=== PATIENT | female | born 1935 | race Caucasian/White ===

== ENCOUNTER 2018-12-11 14:35 | Emergency (ER) | payer OTHER ==
--- OUTSIDE RECORDS SUMMARY | 2018-12-11 14:36 | XMS REPORT | Clinical Summary ---
:1935 Author Organization [facility] Address [address] [place] [address] Care Team Providers Name Role Phone Izzy Curiel Primary Care Provider Allergies Not on File Medications Not on file Active Problems Not on file Social History Tobacco Use Types Packs/Day Years Used Date Never Assessed Sex Assigned at Date Recorded Not on file Job Start Date Occupation Industry Not on file Not on file Not on file Travel History Travel Start Travel End No recent travel history available. Last Filed Vital Signs Not on file Plan of Treatment Health Maintenance Due Date Last Done Comments SHINGLES VACCINES (1 of 2) 1985 PNEUMOCOCCAL POLYSACCHARIDE VACCINE AGE 65 AND OVER 2000 PNEUMOCOCCAL-13 2000 INFLUENZA VACCINE 06/20/2018 Results Not on fileafter 12/10/2017 Insurance Payer Benefit Plan / Group Subscriber ID Type Phone Address MEDICARE MEDICARE PART A AND B xxxxxxxxxx Medicare [place], [place] COMMERCIAL MISC MISC COMMERCIAL xxxxxx Commercial Advance Directives Patient has advance care planning documents on file. For more information, please contact:[facility] [place] [address]
--- NOTE | 2018-12-11 15:29 | RAD REPORT ---
EXAM DESCRIPTION: CT - Facial Bones W/ Mpr - 12/11/2018 3:16 pm CLINICAL HISTORY: Facial injury status post fall. Facial pain TECHNIQUE: Computed axial tomography of the face was obtained. Coronal and sagittal reconstruction w as performed. All CT scans are performed using dose optimization technique as appropriate and may include automated exposure control or mA/KV adjustment according to patient size. FINDINGS: Left preseptal/cheek swelling is present. A fracture is not seen. A TMJ dislocation is not noted. The globes are intact. Fluid within the sinuses is not seen. IMPRESSION: Negative for a facial fracture.
--- NOTE | 2018-12-11 15:33 | RAD REPORT ---
EXAM DESCRIPTION: CT - Head C Spine Mpr Wo Con - 12/11/2018 3:24 pm CLINICAL HISTORY: Head and neck injury status post fall. Head and neck pain COMPARISON: None. TECHNIQUE: Computed axial tomography of the head and cervical spine was obtained. Sagittal and coronal reconstruction was performed. All CT scans are performed using dose optimization technique as appropriate and may include automated exposure control or mA/KV adjustment according to patient size. FINDINGS: An intracranial bleed is not seen. The ventricles are normal in caliber. An extra-axial fl uid collection is not noted.Fluid within the visualized sinuses and mastoids is not seen A cervical fracture is not visualized. No dislocation is noted. Mild anterior subluxation of C4 on C5 is present. Most likely this is chronic. Spondylosis involves the spine IMPRESSION: No acute intracranial abnormality is seen. A cervical fracture is not visualized. If the patient continues to have symptoms to suggest intracra nial /spinal cord/ligamentous pathology then MRI would be recommended
--- NOTE | 2018-12-11 15:43 | EDPHYS ---
Physician Documentation [facility] Name: Hermelinda Zelaya Age: 83 yrs Sex: Female : 1935 Arrival Date: 12/11/2018 Time: 14:37 Bed 17 Private MD: ED Physician Damon Riojas HPI: 12/11 16:26 This 83 yrs old Female presents to ER via Ambulatory with complaints of Fall snw Injury. 16:26 Details of fall: The patient fell from an upright position, while walking, tripped in snw driveway and landed on left knee, hand, and struck face on concrete, no LOC. Onset: The symptoms/episode began/occurred suddenly, just prior to arrival. Associated injuries: The patient sustained injury to the head, abrasion, contusion, swelling, tenderness. Severity of symptoms: At their worst the symptoms were mild. The patient has experienced a previous episode. Pt declines pain medications at this time. Historical: - Allergies: 14:59 Epinephrine; tw2 14:59 Codeine; tw2 14:59 darvon; tw2 15:05 Propoxyphene HCl; tw2 - Home Meds: 14:56 Aortic valve replacement [Active]; ph 14:59 Advair Diskus Inhl [Active]; losartan potassium 100 mg once daily PO [Active]; tw2 Singulair 10 mg oral tab 1 tab once daily [Active]; Ventolin HFA 90 mcg/actuation Nebulizer HFAA [Active]; ipratropium bromide 0.02 % inhalation soln [Active]; Albuterol Inhl [Active]; Centrum Silver 0.4-300-250 mg-mcg-mcg oral tab [Active]; aspirin 81 mg Oral chew 1 tab once daily [Active]; 15:01 Zyrtec 10 mg Oral cap [Active]; Zithromax 1 gram Oral pack [Active]; tw2 - PMHx: 14:59 Asthma; tw2 - PSHx: 14:56 Hysterectomy; Cholecystectomy; Tonsillectomy; BACK; ph 14:59 BACK; Tonsillectomy; Hysterectomy; aortic valvle replacement; Cholecystectomy; Hernia tw2 repair; Bladder suspension; - Immunization history:: Adult Immunizations. - Immunization history: Last tetanus immunization: unknown. - Social history:: Smoking status: . - Ebola Screening: : Patient denies travel to an Ebola-affected area in the 21 days before illness onset. ROS: 16:22 Constitutional: Negative for fever, chills, and weight loss, Eyes: Negative for injury, snw pain, redness, and discharge, ENT: Negative for injury, pain, and discharge, Neck: Negative for injury, pain, and swelling, Cardiovascular: Negative for chest pain, palpitations, and edema, Respiratory: Negative for shortness of breath, cough, wheezing, and pleuritic chest pain, Abdomen/GI: Negative for abdominal pain, nausea, vomiting, diarrhea, and constipation, Back: Negative for injury and pain, : Negative for injury, bleeding, discharge, and swelling, MS/Extremity: Negative for injury and deformity. 16:22 Psych: Negative for depression, anxiety, suicide ideation, homicidal ideation, and hallucinations. 16:22 Skin: Positive for abrasion(s), avulsion, swelling, contusion. 16:22 Neuro: Negative for altered mental status, dizziness, gait disturbance, loss of consciousness. Exam: 16:22 Constitutional: This is a well developed, well nourished patient who is awake, alert, snw and in no acute distress. Eyes: Pupils equal round and reactive to light, extra-ocular motions intact. Lids and lashes normal. Conjunctiva and sclera are non-icteric and not injected. Cornea within normal limits. Periorbital areas with no swelling, redness, or edema. ENT: Nares patent. No nasal discharge, no septal abnormalities noted. Tympanic membranes are normal and external auditory canals are clear. Oropharynx with no redness, swelling, or masses, exudates, or evidence of obstruction, uvula midline. Mucous membranes moist. Neck: Trachea midline, no thyromegaly or masses palpated, and no cervical lymphadenopathy. Supple, full range of motion without nuchal rigidity, or vertebral point tenderness. No Meningismus. Chest/axilla: Normal chest wall appearance and motion. Nontender with no deformity. No lesions are appreciated. Cardiovascular: Regular rate and rhythm with a normal S1 and S2. No gallops, murmurs, or rubs. Normal PMI, no JVD. No pulse deficits. Respiratory: Lungs have equal breath sounds bilaterally, clear to auscultation and percussion. No rales, rhonchi or wheezes noted. No increased work of breathing, no retractions or nasal flaring. Abdomen/GI: Soft, non-tender, with normal bowel sounds. No distension or tympany. No guarding or rebound. No evidence of tenderness throughout. Back: No spinal tenderness. No costovertebral tenderness. Full range of motion. MS/ Extremity: Pulses equal, no cyanosis. Neurovascular intact. Full, normal range of motion. Neuro: Awake and alert, GCS 15, oriented to person, place, time, and situation. Cranial nerves II-XII grossly intact. Motor strength 5/5 in all extremities. Sensory grossly intact. Cerebellar exam normal. Normal gait. Psych: Awake, alert, with orientation to person, place and time. Behavior, mood, and affect are within normal limits. 16:22 Skin: Appearance: normal except for affected area, injury, abrasion(s), very small abrasion noted, of the left knee, avulsion(s), a small of the lateral aspect of left fingers, contusion(s), that are deep, of the left eye. Vital Signs: 14:52 BP 130 / 62; Pulse 80; Resp 17; Temp 98.4(O); Pulse Ox 100% ; tw2 14:53 Pulse 87; Resp 18; Pulse Ox 97% on R/A; Weight 62.14 kg; Height 5 ft. 1 in. (154.94 ph cm); Pain 4/10; 15:36 BP 128 / 61; Pulse 88; Resp 17; Pulse Ox 99% on R/A; tw2 14:53 Body Mass Index 25.89 (62.14 kg, 154.94 cm) ph López Coma Score: 14:52 Eye Response: spontaneous(4). Verbal Response: oriented(5). Motor Response: obeys tw2 commands(6). Total: 15. Trauma Score (Adult): 14:52 Eye Response: spontaneous(1); Verbal Response: oriented(1); Motor Response: obeys tw2 commands(2); Systolic BP: > 89 mm Hg(4); Respiratory Rate: 10 to 29 per min(4); Goshen Score: 15; Trauma Score: 12 MDM: 14:47 Patient medically screened. snw 16:25 Data reviewed: vital signs, nurses notes. Data interpreted: Pulse oximetry: on room air snw is 99 %. Interpretation: normal. Counseling: I had a detailed discussion with the patient and/or guardian regarding: the historical points, exam findings, and any diagnostic results supporting the discharge/admit diagnosis, radiology results, the need for outpatient follow up, to return to the emergency department if symptoms worsen or persist or if there are any questions or concerns that arise at home. Special discussion: Based on the patient's history, exam and DX evaluation, there is no indication for emergent intervention or inpatient [place]. It is understood by the patient/guardian that if the SXs persist or worsen they need to return immediately for re-evaluation. Based on the history and exam findings, there is no indication for further emergent testing or inpatient evaluation. I discussed with the patient/guardian the need to see the primary care provider for further evaluation of the symptoms. 12/11 15:08 Order name: CT Facial Bones W/O Con; Complete Time: 15:35 snw 12/11 15:08 Order name: CT Head C Spine; Complete Time: 15:35 snw 12/11 15:58 Order name: Ice pack; Complete Time: 15:58 tw2 Administered Medications: No medications were administered Disposition: 16:51 Co-signature as Attending Physician, Damon Riojas MD. rn Disposition: 12/11/18 15:42 Discharged to Home. Impression: Fall on same level, unspecified, Contusion of unspecified part of head - left cheek, Abrasion of knee, Abrasion of left hand - skin avulsion. - Condition is Stable. - Discharge Instructions: Abrasion, Head Injury, Adult, Fall Prevention in the Home. - Prescriptions for orphenadrine citrate 100 mg Oral Tablet Sustained Release - take 1 tablet by ORAL route 2 times per day As needed; 20 tablet. - Medication Reconciliation Form, Thank You Letter, Antibiotic Education, Prescription Opioid Use form. - Follow up: Private Physician; When: 2 - 3 days; Reason: Recheck today's complaints, Continuance of care, Re-evaluation by your physician. Follow up: Emergency Department; When: As needed; Reason: Worsening of condition. Signatures: Dispatcher [employer] EDMS Vania Vogel, ANASTASIA-C LIBRARY CIRCULATION ASSISTANT-Csnw Damon Riojas MD MD rn Hall, Patricia, RN RN Yasmin Arevalo RN RN tw2 Corrections: (The following items were deleted from the chart) 15:05 14:56 Allergies: Epinephrine; ph tw2 15:05 14:56 Allergies: Codeine; ph tw2 15:05 14:56 PMHx: Asthma; ph tw2 15:59 15:42 12/11/2018 15:42 Discharged to Home. Impression: Fall on same level, unspecified; tw2 Contusion of unspecified part of head - left cheek; Abrasion of knee; Abrasion of left hand - skin avulsion. Condition is Stable. Forms are Medication Reconciliation Form, Thank You Letter, Antibiotic Education, Prescription Opioid Use. Follow up: Private Physician; When: 2 - 3 days; Reason: Recheck today's complaints, Continuance of care, Re-evaluation by your physician. Follow up: Emergency Department; When: As needed; Reason: Worsening of condition. snw 16:27 16:22 Skin: Appearance: normal except for affected area, injury, abrasion(s), very snw small abrasion noted, of the right knee, avulsion(s), a small of the lateral aspect of left fingers, contusion(s), that are deep, of the left eye, snw
--- NOTE | 2018-12-11 15:43 | ER ---
Nurse's Notes [facility] Name: Hermelinda Zelaya Age: 83 yrs Sex: Female : 1935 Arrival Date: 12/11/2018 Time: 14:37 Bed 17 Private MD: Diagnosis: Fall on same level, unspecified;Contusion of unspecified part of head-left cheek;Abrasion of knee;Abrasion of left hand-skin avulsion Presentation: 12/11 14:46 Mechanism of Injury: Fall from standing position. Trauma event details: Injury occurred tw2 in the [facility]. 14:51 Presenting complaint: Patient states: Reports tripping and falling onto concrete when ph leaving apartment, c/o pain to L eye, L hand and L knee, selling and bruising noted to L eye and bandage in place on L palm, pt denies LOC, states, " I'm just feeling strange and not like myself." Reports taking 81 mg ASA, denies other blood thinners. Transition of care: patient was not received from another setting of care. Onset of symptoms was December 11, 2018. Risk Assessment: Do you want to hurt yourself or someone else? Patient reports no desire to harm self or others. Initial Sepsis Screen: Does the patient meet any 2 criteria? No. Patient's initial sepsis screen is negative. Does the patient have a suspected source of infection? No. Patient's initial sepsis screen is negative. Care prior to arrival: None. 14:51 Method Of Arrival: Ambulatory ph 14:51 Acuity: LOI 2 ph Trauma Activation: Alert Physician: ED Physician; Name: ; Notified At: ; Arrived At: Physician: General Surgeon; Name: ; Notified At: ; Arrived At: Physician: Radiology; Name: ; Notified At: ; Arrived At: Physician: Respiratory; Name: ; Notified At: ; Arrived At: Physician: Lab; Name: ; Notified At: ; Arrived At: Historical: - Allergies: 14:59 Epinephrine; tw2 14:59 Codeine; tw2 14:59 darvon; tw2 15:05 Propoxyphene HCl; tw2 - Home Meds: 14:56 Aortic valve replacement [Active]; ph 14:59 Advair Diskus Inhl [Active]; losartan potassium 100 mg once daily PO [Active]; tw2 Singulair 10 mg oral tab 1 tab once daily [Active]; Ventolin HFA 90 mcg/actuation Nebulizer HFAA [Active]; ipratropium bromide 0.02 % inhalation soln [Active]; Albuterol Inhl [Active]; Centrum Silver 0.4-300-250 mg-mcg-mcg oral tab [Active]; aspirin 81 mg Oral chew 1 tab once daily [Active]; 15:01 Zyrtec 10 mg Oral cap [Active]; Zithromax 1 gram Oral pack [Active]; tw2 - PMHx: 14:59 Asthma; tw2 - PSHx: 14:56 Hysterectomy; Cholecystectomy; Tonsillectomy; BACK; ph 14:59 BACK; Tonsillectomy; Hysterectomy; aortic valvle replacement; Cholecystectomy; Hernia tw2 repair; Bladder suspension; - Immunization history:: Adult Immunizations. - Immunization history: Last tetanus immunization: unknown. - Social history:: Smoking status: . - Ebola Screening: : Patient denies travel to an Ebola-affected area in the 21 days before illness onset. Screenin:04 Abuse screen: Denies threats or abuse. Nutritional screening: No deficits noted. tw2 Tuberculosis screening: No symptoms or risk factors identified. Fall Risk Secondary diagnosis (15 points) impaired mobility. Primary Survey: 14:45 NO uncontrolled hemorrhage observed. A: The patient is alert. Airway: patent. tw2 Breathing/Chest: Respiratory pattern: regular, Respiratory effort: spontaneous, unlabored, Breath sounds: clear, bilaterally. Breathing/Chest: Chest inspection: symmetrical rise and fall of the chest. Circulation: Heart tones present. Skin temperature: warm, dry. Disability Alert. Exposure/Environment: There is no evidence of uncontrolled external bleeding. Obvious injury(ies) are noted at this time: Left eye has bruising and swelling noted, skin tear noted to left hand. 15:29 Reassessment Airway Airway Patent Breathing/Chest Respiratory pattern Regular tw2 Respiratory effort Spontaneous Unlabored Breath sounds Clear Chest inspection Symmetrical Circulation Heart tones Present Disability Alert. Assessment: 14:44 General: Appears in no apparent distress. well groomed, Behavior is "rattled". Pain: tw2 Complains of pain in left eye and left faith. Neuro: Level of Consciousness is awake, alert, obeys commands, Oriented to person, place, time, situation. Cardiovascular: Denies chest pain, shortness of breath, Heart tones S1 S2 Patient's skin is warm and dry. Respiratory: Airway is patent Respiratory effort is even, unlabored, Respiratory pattern is regular, symmetrical, Breath sounds are clear bilaterally. GI: No signs and/or symptoms were reported involving the gastrointestinal system. Abdomen is flat, Bowel sounds present X 4 quads. : No signs and/or symptoms were reported regarding the genitourinary system. EENT:. EENT: Eyes bruising and swelling noted to LEFT eye. Derm: abrasion noted to palm of left hand. Musculoskeletal: Circulation, motion, and sensation intact. Range of motion: intact in all extremities. 15:35 Reassessment: Patient appears in no apparent distress at this time. No changes from tw2 previously documented assessment. Patient and/or family updated on plan of care and expected duration. Pain level reassessed. Patient is alert, oriented x 3, equal unlabored respirations, skin warm/dry/pink. 15:36 Reassessment: provider at bedside at this time. tw2 15:57 Reassessment: Patient appears in no apparent distress at this time. No changes from tw2 previously documented assessment. Patient and/or family updated on plan of care and expected duration. Pain level reassessed. Patient is alert, oriented x 3, equal unlabored respirations, skin warm/dry/pink. Vital Signs: 14:52 BP 130 / 62; Pulse 80; Resp 17; Temp 98.4(O); Pulse Ox 100% ; tw2 14:53 Pulse 87; Resp 18; Pulse Ox 97% on R/A; Weight 62.14 kg; Height 5 ft. 1 in. (154.94 ph cm); Pain 4/10; 15:36 BP 128 / 61; Pulse 88; Resp 17; Pulse Ox 99% on R/A; tw2 14:53 Body Mass Index 25.89 (62.14 kg, 154.94 cm) ph Bailey Coma Score: 14:52 Eye Response: spontaneous(4). Verbal Response: oriented(5). Motor Response: obeys tw2 commands(6). Total: 15. Trauma Score (Adult): 14:52 Eye Response: spontaneous(1); Verbal Response: oriented(1); Motor Response: obeys tw2 commands(2); Systolic BP: > 89 mm Hg(4); Respiratory Rate: 10 to 29 per min(4); Bailey Score: 15; Trauma Score: 12 ED Course: 14:37 Patient arrived in ED. mr 14:43 Yasmin Arevalo, RN is Primary Nurse. tw2 14:43 Bed in low position. Call light in reach. Side rails up X2. youth nutritional monitor on. Pulse tw2 ox on. NIBP on. Warm blanket given. 14:46 Patient maintains SpO2 saturation greater than 95% on room air. tw2 14:46 Thermoregulation: warm blanket given to patient. tw2 14:46 Wound care: ice pack applied. tw2 14:47 Vania Vogel FNP-C is [facility]. snw 14:47 Damon Riojas MD is Attending Physician. snw 14:53 Triage completed. ph 14:56 Arm band placed on Patient placed in an exam room, on a stretcher, on pulse oximetry. ph 15:[address] via stretcher. nj 15:17 CT Facial Bones W/O Con In Process Unspecified. EDMS 15:26 CT Head C Spine In Process Unspecified. EDMS 15:57 No provider procedures requiring assistance completed. Patient did not have IV access tw2 during this emergency room visit. Administered Medications: No medications were administered Intake: 15:37 PO: 30ml (Water); Total: 30ml. tw2 Outcome: 15:37 Patient's length of stay was not longer than 2 hours. tw2 15:42 Discharge ordered by MD. snw 15:58 Discharged to home via wheelchair, with family. tw2 15:58 Condition: stable 15:58 Discharge instructions given to patient, family, Instructed on discharge instructions, follow up and referral plans. no drinking with medication, no driving heavy equipment, medication usage, Demonstrated understanding of instructions, follow-up care, medications, Prescriptions given X 1. 15:59 Patient left the ED. tw2 Signatures: Dispatcher [employer] EDMS Vania Vogel FNP-C FNP-Inezw Nikkie BlantonJillian, RN RN ph Yasmin Arevalo, RN RN tw2 Elpidio Coley Corrections: (The following items were deleted from the chart) 15:05 14:56 Allergies: Epinephrine; ph tw2 15:05 14:56 Allergies: Codeine; ph tw2 15:05 14:56 PMHx: Asthma; ph tw2
[2018-12-11 16:06] VITALS: TEMP 98.4
[2018-12-11 16:08] VITALS: BP 128/61; O2SAT 99
== END 2018-12-11 15:59 | disposition home or self-care (01) ==
LOC: ER 14:35
DX: S00.83XA Contusion of other part of head, initial encounter (principal); S80.212A Abrasion, left knee, initial encounter; S60.512A Abrasion of left hand, initial encounter; W01.198A Fall on same level from slipping, tripping and stumbling with subsequent striking against other object, initial encounter; Y93.01 Activity, walking, marching and hiking; Y92.008 Other place in unspecified non-institutional (private) residence as the place of occurrence of the external cause; J45.909 Unspecified asthma, uncomplicated; Z79.51 Long term (current) use of inhaled steroids; Z79.899 Other long term (current) drug therapy; Z95.2 Presence of prosthetic heart valve
CPT/HCPCS: 70450; 70486; 72125; 76377; 99285

== ENCOUNTER 2019-01-25 09:20 | Emergency (ER) | payer OTHER ==
--- OUTSIDE RECORDS SUMMARY | 2019-01-25 09:22 | XMS REPORT | Clinical Summary ---
:1935 Author Organization [facility] Address [address] [place] [address] Care Team Providers Name Role Phone Izzy [...] Due Date Last Done Comments SHINGLES VACCINES (#1) 1985 65+ PNEUMOCOCCAL VACCINE (1 of 2 - PCV13) 2000 PNEUMOCOCCAL POLYSACCHARIDE VACCINE AGE 65 AND OVER 2000 INFLUENZA VACCINE 06/20/2018 Results Not on fileafter 01/24/2018 Insurance Payer Benefit Plan / Group Subscriber ID Type Phone Address MEDICARE MEDICARE PART A AND B xxxxxxxxxx Medicare [place], [place] COMMERCIAL MISC MISC COMMERCIAL xxxxxx Commercial Advance Directives Patient has advance care planning documents on file. For more information, please contact:[facility] [place] [address]
--- NOTE | 2019-01-25 13:06 | ER ---
Nurse's Notes [facility] Name: Hermelinda Zelaya Age: 83 yrs Sex: Female : 1935 Arrival Date: 01/25/2019 Time: 09:21 Bed 12 Private MD: Diagnosis: Pain in right hip Presentation: 01/25 09:44 Presenting complaint: Patient states: Fell on 12/11 and reports R hip pain since, ph states, "They checked out my head and stuff but they didn't do any x-rays of my hips.". Transition of care: patient was not received from another setting of care. Onset of symptoms was January 25, 2019. Risk Assessment: Do you want to hurt yourself or someone else? Patient reports no desire to harm self or others. Initial Sepsis Screen: Does the patient meet any 2 criteria? No. Patient's initial sepsis screen is negative. Does the patient have a suspected source of infection? No. Patient's initial sepsis screen is negative. Care prior to arrival: None. 09:44 Method Of Arrival: Wheelchair ph 09:44 Acuity: LOI 4 ph Historical: - Allergies: 09:46 Codeine; ph 09:46 Darvon; ph 09:46 Propoxyphene HCl; ph - PSHx: 09:46 Hysterectomy; Cholecystectomy; Tonsillectomy; BACK; aortic valvle replacement; Hernia ph repair; Bladder suspension; - Immunization history:: Adult Immunizations up to date. - Social history:: Smoking status: Patient/guardian denies using tobacco. - Ebola Screening: : No symptoms or risks identified at this time. Screenin:45 Abuse screen: Denies threats or abuse. Denies injuries from another. Nutritional hb screening: No deficits noted. Tuberculosis screening: No symptoms or risk factors identified. Fall Risk None identified. Assessment: 11:45 General: Appears in no apparent distress. Behavior is calm, cooperative. Pain: Pain hb currently is 5 out of 10 on a pain scale. Neuro: Level of Consciousness is awake, alert, obeys commands, Oriented to person, place, time, situation. Cardiovascular: Capillary refill < 3 seconds Patient's skin is warm and dry. Respiratory: Airway is patent Respiratory effort is even, unlabored, Respiratory pattern is regular, symmetrical. GI: No signs and/or symptoms were reported involving the gastrointestinal system. : No signs and/or symptoms were reported regarding the genitourinary system. EENT: No signs and/or symptoms were reported regarding the EENT system. Derm: Skin is intact, is healthy with good turgor. Musculoskeletal: Reports bilateral hip pain. 12:30 Reassessment: Patient appears in no apparent distress at this time. Patient and/or hb family updated on plan of care and expected duration. Pain level reassessed. Patient is alert, oriented x 3, equal unlabored respirations, skin warm/dry/pink. 13:30 Reassessment: Patient appears in no apparent distress at this time. No changes from previously documented assessment. Patient and/or family updated on plan of care and expected duration. Pain level reassessed. Patient is alert, oriented x 3, equal unlabored respirations, skin warm/dry/pink. Vital Signs: 09:46 BP 111 / 52; Pulse 66; Resp 18; Temp 98.6; Pulse Ox 98% on R/A; Weight 62.14 kg; Height ph 5 ft. 1 in. (154.94 cm); 12:48 BP 125 / 49; Pulse 61; Resp 20; Pulse Ox 99% on R/A; dm5 09:46 Body Mass Index 25.89 (62.14 kg, 154.94 cm) ph 12:48 pt states that she does not want any pain medication. dm5 ED Course: 09:21 Patient arrived in ED. as 09:45 Triage completed. ph 09:46 Arm band placed on. ph 11:45 Devon Telles NP is PHCP. pm1 11:45 Natanael De La Garza MD is Attending Physician. pm1 11:45 Patient has correct armband on for positive identification. Call light in reach. hb 12:00 Megan Jo, RN is Primary Nurse. hb 12:15 X-ray completed. Portable x-ray completed in exam room. Patient tolerated procedure jb2 well. 13:00 No provider procedures requiring assistance completed. Patient did not have IV access hb during this emergency room visit. 13:04 Hip Right 2 View XRAY In Process Unspecified. EDMS 13:24 Primary Nurse role handed off by Megan Jo, KIERA dm5 13:24 Noelle Escobar RN is Primary Nurse. dm5 Administered Medications: No medications were administered Outcome: 13:00 Discharged to home ambulatory, with family. hb 13:00 Condition: stable 13:00 Discharge instructions given to patient, Instructed on discharge instructions, follow up and referral plans. Demonstrated understanding of instructions, follow-up care. 13:05 Discharge ordered by . pm1 13:24 Patient left the ED. dm5 Signatures: Dispatcher [employer] EDNoelle Rebolledo RN RN dm5 Filemon Cummins Amelia as Hall, Patricia, RN RN Devon Telles NP PAINTER AND PAPERHANGER APPRENTICE pm1 Megan Jo RN RN hb Corrections: (The following items were deleted from the chart) 19:23 13:00 Discharge instructions given to patient, Instructed on discharge instructions, hb follow up and referral plans. Demonstrated understanding of instructions, follow-up care, Prescriptions given X 2, hb
--- NOTE | 2019-01-25 13:06 | EDPHYS ---
Physician Documentation [facility] Name: Hermelinda Zelaya Age: 83 yrs Sex: Female : 1935 Arrival Date: 01/25/2019 Time: 09:21 Bed 12 Private MD: ED Physician Natanael De La Garza HPI: 01/25 12:00 This 83 yrs old Female presents to ER via Wheelchair with complaints of Right pm1 Hip Pain. 12:00 The patient or guardian reports pain. sustained from a fall, There is no obvious pm1 deformity, The patient is able to self ambulate. The patient is able to bear their full body weight. There is no radiation of the patient's discomfort. The complaints affect the right hip. Onset: The symptoms/episode began/occurred since 12/11/2018 fall. Modifying factors: The symptoms are alleviated by nothing, the symptoms are aggravated by any movement. Associated signs and symptoms: Pertinent negatives: abdominal pain, chest pain, diarrhea, dysuria, fever, nausea, shortness of breath, vomiting. Severity of symptoms: in the emergency department the symptoms are unchanged. The patient has not experienced similar symptoms in the past. Historical: - Allergies: 09:46 Codeine; ph 09:46 Darvon; ph 09:46 Propoxyphene HCl; ph - PSHx: 09:46 Hysterectomy; Cholecystectomy; Tonsillectomy; BACK; aortic valvle replacement; Hernia ph repair; Bladder suspension; - Immunization history:: Adult Immunizations up to date. - Social history:: Smoking status: Patient/guardian denies using tobacco. - Ebola Screening: : No symptoms or risks identified at this time. ROS: 12:00 Constitutional: Negative for fever, chills, and weight loss, Eyes: Negative for injury, pm1 pain, redness, and discharge, ENT: Negative for injury, pain, and discharge, Neck: Negative for injury, pain, and swelling, Cardiovascular: Negative for chest pain, palpitations, and edema, Respiratory: Negative for shortness of breath, cough, wheezing, and pleuritic chest pain, Abdomen/GI: Negative for abdominal pain, nausea, vomiting, diarrhea, and constipation, Back: Negative for injury and pain, : Negative for injury, bleeding, discharge, and swelling. 12:00 Skin: Negative for injury, rash, and discoloration, Neuro: Negative for headache, weakness, numbness, tingling, and seizure. 12:00 MS/extremity: Positive for pain, of the right hip, Negative for decreased range of motion, deformity. Exam: 12:00 Constitutional: This is a well developed, well nourished patient who is awake, alert, pm1 and in no acute distress. Head/Face: Normocephalic, atraumatic. Eyes: Pupils equal round and reactive to light, extra-ocular motions intact. Lids and lashes normal. Conjunctiva and sclera are non-icteric and not injected. Cornea within normal limits. Periorbital areas with no swelling, redness, or edema. ENT: Nares patent. No nasal discharge, no septal abnormalities noted. Tympanic membranes are normal and external auditory canals are clear. Oropharynx with no redness, swelling, or masses, exudates, or evidence of obstruction, uvula midline. Mucous membranes moist. Neck: Trachea midline, no thyromegaly or masses palpated, and no cervical lymphadenopathy. Supple, full range of motion without nuchal rigidity, or vertebral point tenderness. No Meningismus. Chest/axilla: Normal chest wall appearance and motion. Nontender with no deformity. No lesions are appreciated. Cardiovascular: Regular rate and rhythm with a normal S1 and S2. No gallops, murmurs, or rubs. Normal PMI, no JVD. No pulse deficits. Respiratory: Lungs have equal breath sounds bilaterally, clear to auscultation and percussion. No rales, rhonchi or wheezes noted. No increased work of breathing, no retractions or nasal flaring. Abdomen/GI: Soft, non-tender, with normal bowel sounds. No distension or tympany. No guarding or rebound. No evidence of tenderness throughout. Back: No spinal tenderness. No costovertebral tenderness. Full range of motion. Skin: Warm, dry with normal turgor. Normal color with no rashes, no lesions, and no evidence of cellulitis. 12:00 Musculoskeletal/extremity: Extremities: all appear grossly normal, with no appreciated pain with palpation, ROM: intact in all extremities, Circulation is intact in all extremities. Sensation intact. Vital Signs: 09:46 BP 111 / 52; Pulse 66; Resp 18; Temp 98.6; Pulse Ox 98% on R/A; Weight 62.14 kg; Height ph 5 ft. 1 in. (154.94 cm); 12:48 BP 125 / 49; Pulse 61; Resp 20; Pulse Ox 99% on R/A; dm5 09:46 Body Mass Index 25.89 (62.14 kg, 154.94 cm) ph 12:48 pt states that she does not want any pain medication. dm5 MDM: 11:46 Patient medically screened. pm1 12:00 ED course: Patient refused pain medication in the ER. Does not want to have any pm1 medications stronger than tylenol or ibuprofen. Does not want narcotics. 13:04 Data reviewed: vital signs. Data interpreted: Pulse oximetry: on room air is 99 %. pm1 Interpretation: normal. Counseling: I had a detailed discussion with the patient and/or guardian regarding: the historical points, exam findings, and any diagnostic results supporting the discharge/admit diagnosis, radiology results, the need for outpatient follow up, for definitive care, a orthopedic surgeon, to return to the emergency department if symptoms worsen or persist or if there are any questions or concerns that arise at home. 01/25 09:47 Order name: Hip Right 2 View XRAY; Complete Time: 13:15 ph Administered Medications: No medications were administered Disposition: 01/25/19 13:05 Discharged to Home. Impression: Pain in right hip. - Condition is Stable. - Discharge Instructions: Joint Pain, Hip Pain. - Medication Reconciliation Form, Thank You Letter, Prescription Opioid Use form. - Follow up: Emergency Department; When: As needed; Reason: Worsening of condition. Follow up: Private Physician; When: 2 - 3 days; Reason: Recheck today's complaints, Continuance of care, Re-evaluation by your physician. - Problem is new. - Symptoms have improved. Addendum: 01/28/2019 07:24 Co-signature as Attending Physician, Natanael De La Garza MD I agree with the assessment and k dr plan of care. Signatures: Dispatcher [employer] EUGENEDE Noelle Escobar RN RN dm5 Natanael De La Garza MD MD [facility] Jillian Leung RN RN Devon Telles, SHEETFED PRESS OPERATOR SHEETFED PRESS OPERATOR pm1 Megan Jo RN RN Corrections: (The following items were deleted from the chart) 01/25 13:24 13:05 01/25/2019 13:05 Discharged to Home. Impression: Pain in right hip. Condition is dm5 Stable. Forms are Medication Reconciliation Form, Thank You Letter, Antibiotic Education, Prescription Opioid Use. Follow up: Emergency Department; When: As needed; Reason: Worsening of condition. Follow up: Private Physician; When: 2 - 3 days; Reason: Recheck today's complaints, Continuance of care, Re-evaluation by your physician. Problem is new. Symptoms have improved. pm1
--- NOTE | 2019-01-25 13:13 | RAD REPORT ---
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 No acute fracture or dislocation is seen .
[2019-01-25 13:30] VITALS: TEMP 98.6
[2019-01-25 13:31] VITALS: BP 125/49; O2SAT 99
== END 2019-01-25 13:24 | disposition home or self-care (01) ==
LOC: ER 09:20
DX: M25.551 Pain in right hip (principal); Z88.5 Allergy status to narcotic agent; Z88.8 Allergy status to other drugs, medicaments and biological substances; Z95.4 Presence of other heart-valve replacement
CPT/HCPCS: 99283

== ENCOUNTER 2019-12-05 12:46 | Emergency (ER) | payer OTHER ==
--- OUTSIDE RECORDS SUMMARY | 2019-12-05 12:47 | XMS REPORT ---
:1935 Author Organization [facility] Address [address] [place] [address] Dr. Keita. [address] [place] [id number] Care Team Providers Name Role Phone Unavailable Unavailable Unavailable Problems This patient has no known problems. Allergies, Adverse Reactions, Alerts This patient has no known allergies or adverse reactions. Medications This patient has no known medications.
[2019-12-05 13:26] LABS: Absolute Lymphocytes (CBC) 1.5 K/uL (0.7-4.9); Basophils % 0.4 % (0-1.3); Hematocrit 31.4 % (36.0-45.0); Lymphocytes % 11.7 % (15.3-44.8); RBC Red Blood Cell Count 3.69 M/uL (3.86-4.86)
[2019-12-05 13:27] LABS: Protime INR 1.07
[2019-12-05 13:43] LABS: ALT/SGPT 38 U/L (12-78); AST/SGOT 17 U/L (15-37); Albumin 3.5 g/dL (3.4-5.0); Alkaline Phosphatase 67 U/L (45-117); BUN Blood Urea Nitrogen 13 mg/dL (7-18); Bicarbonate 26 mmol/L (21-32); Bilirubin Direct < 0.1 mg/dL (0-0.2); Bilirubin Total 0.3 mg/dL (0.2-1.0); Glucose Level 141 mg/dL (74-106); Magnesium 2.1 mg/dL (1.8-2.4); NT PRO-BNP 230 pg/mL (<450); Potassium 3.7 mmol/L (3.5-5.1); Protein, Total 6.4 g/dL (6.4-8.2); Sodium Level 132 mmol/L (136-145); Troponin (Emerg Dept Use Only) < 0.02 ng/mL (0.0-0.045)
--- NOTE | 2019-12-05 13:52 | RAD REPORT ---
EXAM DESCRIPTION: RAD - Chest Single View - 12/05/2019 1:47 pm CLINICAL HISTORY: DYSPNEA Chest pain. COMPARISON: Chest Pa And Lat (2 Views) dated 11/29/2019; Chest Pa And Lat (2 Views) dated 10/21/2019; Chest Pa And Lat (2 Views) dated 10/15/2019; Chest Pa And Lat (2 Views) dated 07/04/2018 FINDINGS: Portable technique limits examination quality. The lungs are grossly clear. The heart is upper limit normal in size with sternotomy wires present. N o displaced fractures. IMPRESSION: No acute intrathoracic process suspected.
[2019-12-05] MEDS ORDERED: METHYLPREDNISOLONE 125 MG INJ ONE (13:53)
[2019-12-05] MEDS ORDERED: ALBUTEROL 2.5 MG/3 ML NEB SOL ONE (13:53)
[2019-12-05] MEDS ORDERED: IPRATROPIUM BROM 0.5MG/2.5ML ONE (13:53)
--- NOTE | 2019-12-05 15:49 | EDPHYS ---
Physician Documentation [facility] Name: Hermelinda Zelaya Age: 84 yrs Sex: Female : 1935 Arrival Date: 12/05/2019 Time: 12:46 Bed 5 Private MD: Milind Loya ED Physician Damon Riojas HPI: 12/05 13:20 This 84 yrs old Female presents to ER via Ambulatory with complaints of jr8 Cough, Shortness Of Breath. 13:20 The patient or guardian reports cough, that is intermittent, described as moderate, jr8 with no sputum. Onset: The symptoms/episode began/occurred gradually, 2 week(s) ago. Severity of symptoms: At their worst the symptoms were moderate, in the emergency department the symptoms are unchanged. Modifying factors: The symptoms are alleviated by nothing, the symptoms are aggravated by nothing. Associated signs and symptoms: Pertinent positives: shortness of breath. The patient has not experienced similar symptoms in the past. The patient has been recently seen by a physician:. Saw PCP a week ago and given steroids. Two days ago saw them again and but on Abx. Still having cough and worsening of shortness of breath . Historical: - Allergies: 13:18 Codeine; ph 13:18 Darvon; ph 13:18 Propoxyphene HCl; ph - Home Meds: 13:18 Advair Diskus Inhl [Active]; Albuterol Inhl [Active]; Ventolin HFA 90 mcg/actuation ph Nebulizer HFAA [Active]; aspirin 81 mg Oral chew 1 tab once daily [Active]; Zithromax 250 mg oral tab 1 tab once daily [Active]; Mucinex 600 mg oral Ta12 1 tab every 12 hours [Active]; prednisone 20 mg Oral tab [Active]; montelukast oral oral [Active]; - PSHx: 14:52 Hysterectomy; Cholecystectomy; Tonsillectomy; BACK; aortic valvle replacement; Hernia sg repair; Bladder suspension; - Immunization history:: Adult Immunizations up to date. - Social history:: Smoking status: Patient/guardian denies using tobacco. - Ebola Screening: : Patient negative for fever greater than or equal to 101.5 degrees Fahrenheit, and additional compatible Ebola Virus Disease symptoms Patient denies exposure to infectious person Patient denies travel to an Ebola-affected area in the 21 days before illness onset No symptoms or risks identified at this time. ROS: 13:37 Eyes: Negative for injury, pain, redness, and discharge, ENT: Negative for injury, jr8 pain, and discharge, Neck: Negative for injury, pain, and swelling, Cardiovascular: Negative for chest pain, palpitations, and edema, Abdomen/GI: Negative for abdominal pain, nausea, vomiting, diarrhea, and constipation, Back: Negative for injury and pain, MS/Extremity: Negative for injury and deformity, Skin: Negative for injury, rash, and discoloration, Neuro: Negative for headache, weakness, numbness, tingling, and seizure. 13:37 Respiratory: Positive for cough, dyspnea on exertion, shortness of breath, wheezing. Exam: 13:37 Eyes: Pupils equal round and reactive to light, extra-ocular motions intact. Lids and jr8 lashes normal. Conjunctiva and sclera are non-icteric and not injected. Cornea within normal limits. Periorbital areas with no swelling, redness, or edema. ENT: Nares patent. No nasal discharge, no septal abnormalities noted. Tympanic membranes are normal and external auditory canals are clear. Oropharynx with no redness, swelling, or masses, exudates, or evidence of obstruction, uvula midline. Mucous membranes moist. Neck: Trachea midline, no thyromegaly or masses palpated, and no cervical lymphadenopathy. Supple, full range of motion without nuchal rigidity, or vertebral point tenderness. No Meningismus. Cardiovascular: Regular rate and rhythm with a normal S1 and S2. No gallops, murmurs, or rubs. Normal PMI, no JVD. No pulse deficits. Abdomen/GI: Soft, non-tender, with normal bowel sounds. No distension or tympany. No guarding or rebound. No evidence of tenderness throughout. Back: No spinal tenderness. No costovertebral tenderness. Full range of motion. Skin: Warm, dry with normal turgor. Normal color with no rashes, no lesions, and no evidence of cellulitis. MS/ Extremity: Pulses equal, no cyanosis. Neurovascular intact. Full, normal range of motion. Neuro: Awake and alert, GCS 15, oriented to person, place, time, and situation. Cranial nerves II-XII grossly intact. Motor strength 5/5 in all extremities. Sensory grossly intact. Cerebellar exam normal. Normal gait. 13:37 Respiratory: the patient does not display signs of respiratory distress, Respirations: tachypnea, that is mild, Breath sounds: wheezing: expiratory that is moderate, is heard diffusely. Vital Signs: 13:04 BP 157 / 102; Pulse 101; Resp 24; Temp 99.7; Pulse Ox 98% on R/A; Weight 66.68 kg; ph Height 5 ft. 2 in. (157.48 cm); 14:36 BP 129 / 64; Pulse 88; Resp 20; Pulse Ox 100% on R/A; sg 13:04 Body Mass Index 26.89 (66.68 kg, 157.48 cm) ph MDM: 12:53 Patient medically screened. jr8 15:45 Data reviewed: vital signs, nurses notes, lab test result(s), EKG, radiologic studies, jr8 plain films. Data interpreted: Pulse oximetry: on room air is 100 %. Interpretation: normal. Counseling: I had a detailed discussion with the patient and/or guardian regarding: the historical points, exam findings, and any diagnostic results supporting the discharge/admit diagnosis, lab results, radiology results, the need for outpatient follow up, a family practitioner, to return to the emergency department if symptoms worsen or persist or if there are any questions or concerns that arise at home. ED course: No acute findings on Xray. Labs stable. Patient already on prednisone and two different Abx. Also has plenty of Albuterol at home. Doing better after breathing treatments. Oxygen saturation normal pre and post treatments. No indication for admission at this time. Will have patient f/u. Knows to come back if she feels breathing is getting worse. Patient good with plan . 12/05 12:59 Order name: Basic Metabolic Panel; Complete Time: 13:45 12/05 12:59 Order name: CBC with Diff; Complete Time: 13:37 12/05 12:59 Order name: LFT's; Complete Time: 13:45 12/05 12:59 Order name: Magnesium; Complete Time: 13:45 12/05 12:59 Order name: NT PRO-BNP; Complete Time: 13:45 12/05 12:59 Order name: PT-INR; Complete Time: 13:37 12/05 12:59 Order name: Troponin (emerg Dept Use Only); Complete Time: 13:45 12/05 12:59 Order name: XRAY Chest (1 view); Complete Time: 14:22 12/05 12:59 Order name: EKG; Complete Time: 13:01 12/05 12:59 Order name: Blood Culture Adult (2) 12/05 12:59 Order name: Procalcitonin; Complete Time: 14:22 12/05 14:22 Order name: Flu; Complete Time: 15:21 12/05 12:59 Order name: Cardiac monitoring; Complete Time: 14:53 12/05 12:59 Order name: EKG - Nurse/Tech; Complete Time: 14:53 12/05 12:59 Order name: IV Saline Lock; Complete Time: 14:53 12/05 12:59 Order name: Labs collected and sent; Complete Time: 14:53 12/05 12:59 Order name: O2 Per Protocol; Complete Time: 14:53 12/05 12:59 Order name: O2 Sat Monitoring; Complete Time: 14:54 Administered Medications: 14:26 Drug: SOLU-Medrol 125 mg Route: IVP; Site: right antecubital; sg 15:00 Follow up: Response: No adverse reaction sv 14:26 Drug: Albuterol - atroVENT (3:1) (2.5 mg - 0.5 mg) 3 ml Route: Nebulizer; sg 15:00 Follow up: Response: No adverse reaction sv Disposition: 18:31 Co-signature as Attending Physician, Damon Riojas MD. rn Disposition: 12/05/19 15:47 Discharged to Home. Impression: Acute bronchitis. - Condition is Stable. - Discharge Instructions: Acute Bronchitis, Adult. - Medication Reconciliation Form, Thank You Letter, Antibiotic Education, Prescription Opioid Use form. - Follow up: Milind Loya MD; When: 2 - 3 days; Reason: Recheck today's complaints, Continuance of care, Re-evaluation by your physician. - Problem is new. - Symptoms have improved. Signatures: Dispatcher [employer] Tammi Layton RN RN sv Gay, Steven, RN RN sg Nieto, Roman, MD MD rn Roszak, Josh, PA PA jr8 Jillian Leung, RN RN ph Corrections: (The following items were deleted from the chart) 16:11 15:47 12/05/2019 15:47 Discharged to Home. Impression: Acute bronchitis. Condition is sv Stable. Forms are Medication Reconciliation Form, Thank You Letter, Antibiotic Education, Prescription Opioid Use. Follow up: Milind Loya; When: 2 - 3 days; Reason: Recheck today's complaints, Continuance of care, Re-evaluation by your physician. Problem is new. Symptoms have improved. jr8
--- NOTE | 2019-12-05 15:49 | ER ---
Nurse's Notes [facility] Name: Hermelinda Zelaya Age: 84 yrs Sex: Female : 1935 Arrival Date: 12/05/2019 Time: 12:46 Bed 5 Private MD: Milind Loya Diagnosis: Acute bronchitis Presentation: 12/05 13:03 Presenting complaint: Patient states: Cough, congestion, SOB that has been worsening ph over the past 2 weeks. Transition of care: patient was not received from another setting of care. Onset of symptoms was December 05, 2019. Risk Assessment: Do you want to hurt yourself or someone else? Patient reports no desire to harm self or others. Initial Sepsis Screen: Does the patient meet any 2 criteria? No. Patient's initial sepsis screen is negative. Does the patient have a suspected source of infection? Yes: Productive cough/pneumonia. Care prior to arrival: None. 13:03 Method Of Arrival: Ambulatory ph 13:03 Acuity: LOI 3 ph Historical: - Allergies: 13:18 Codeine; ph 13:18 Darvon; ph 13:18 Propoxyphene HCl; ph - Home Meds: 13:18 Advair Diskus Inhl [Active]; Albuterol Inhl [Active]; Ventolin HFA 90 mcg/actuation ph Nebulizer HFAA [Active]; aspirin 81 mg Oral chew 1 tab once daily [Active]; Zithromax 250 mg oral tab 1 tab once daily [Active]; Mucinex 600 mg oral Ta12 1 tab every 12 hours [Active]; prednisone 20 mg Oral tab [Active]; montelukast oral oral [Active]; - PSHx: 14:52 Hysterectomy; Cholecystectomy; Tonsillectomy; BACK; aortic valvle replacement; Hernia sg repair; Bladder suspension; - Immunization history:: Adult Immunizations up to date. - Social history:: Smoking status: Patient/guardian denies using tobacco. - Ebola Screening: : Patient negative for fever greater than or equal to 101.5 degrees Fahrenheit, and additional compatible Ebola Virus Disease symptoms Patient denies exposure to infectious person Patient denies travel to an Ebola-affected area in the 21 days before illness onset No symptoms or risks identified at this time. Screenin:11 Abuse screen: Denies threats or abuse. Denies injuries from another. Nutritional sv screening: No deficits noted. Tuberculosis screening: No symptoms or risk factors identified. Fall Risk None identified. Assessment: 13:30 General: Appears in no apparent distress. well groomed, well developed, well nourished, sg Behavior is calm, cooperative, appropriate for age. Pain: Denies pain. Neuro: Level of Consciousness is awake, alert, obeys commands. Cardiovascular: Capillary refill is brisk in bilateral fingers Patient's skin is warm and dry. Chest pain is denied. Respiratory: Reports cough that is non-productive, dry, labored breathing Airway is patent Respiratory effort is even, unlabored, Respiratory pattern is regular, symmetrical, Breath sounds are coarse Breath sounds with wheezes the patient has mild shortness of breath. GI: No signs and/or symptoms were reported involving the gastrointestinal system. : No signs and/or symptoms were reported regarding the genitourinary system. EENT: No signs and/or symptoms were reported regarding the EENT system. Derm: Skin is pink, warm \T\ dry. Musculoskeletal: Circulation, motion, and sensation intact. Range of motion: intact in all extremities. Vital Signs: 13:04 BP 157 / 102; Pulse 101; Resp 24; Temp 99.7; Pulse Ox 98% on R/A; Weight 66.68 kg; ph Height 5 ft. 2 in. (157.48 cm); 14:36 BP 129 / 64; Pulse 88; Resp 20; Pulse Ox 100% on R/A; sg 13:04 Body Mass Index 26.89 (66.68 kg, 157.48 cm) ph ED Course: 12:46 Patient arrived in ED. as 12:47 Milind Loya MD is Private Physician. as 12:52 Roscoe Purvis PA is PHCP. jr8 12:52 Damon Riojas MD is Attending Physician. jr8 12:58 Rogelio Lopez, KIERA is Primary Nurse. sg 13:04 Triage completed. ph 13:13 Initial lab(s) drawn, by me, sent to lab. First set of blood cultures drawn. Inserted kj1 saline lock: 22 gauge in left antecubital area, using aseptic technique. Blood collected. 13:30 Patient has correct armband on for positive identification. Placed in gown. Bed in low sg position. Side rails up X2. Pulse ox on. NIBP on. Warm blanket given. Head of bed elevated. 13:30 Arm band placed on. sv 13:37 EKG done, by mechanical sound technician. reviewed by Roscoe JADE. at1 13:48 XRAY Chest (1 view) In Process Unspecified. EDMS 14:40 Flu and/or RSV swab sent to lab. sg 15:47 Milind Loya MD is Referral Physician. jr8 16:11 No provider procedures requiring assistance completed. IV discontinued, intact, sv bleeding controlled, No redness/swelling at site. Pressure dressing applied. Administered Medications: 14:26 Drug: SOLU-Medrol 125 mg Route: IVP; Site: right antecubital; sg 15:00 Follow up: Response: No adverse reaction sv 14:26 Drug: Albuterol - atroVENT (3:1) (2.5 mg - 0.5 mg) 3 ml Route: Nebulizer; sg 15:00 Follow up: Response: No adverse reaction sv Outcome: 15:47 Discharge ordered by . jr8 16:11 Discharged to home via wheelchair, with family. sv 16:11 Condition: stable 16:11 Discharge instructions given to patient, family, Instructed on discharge instructions, follow up and referral plans. Demonstrated understanding of instructions, follow-up care. 16:11 Patient left the ED. sv Signatures: Dispatcher [employer] Tammi Layton, RN Rogelio Piper RN RN Lashawn Ariza Josh, PA PA jrMaira Ball, neurology manager EKG Tat1 Jillian Leung RN RN Rolanda Fleming [email or web address]
[2019-12-05 16:31] VITALS: TEMP 99.7
[2019-12-05 16:33] VITALS: BP 129/64; O2SAT 100
--- NOTE | 2019-12-06 08:10 | EKG ---
Test Date: 2019-12-05 Test Time: 13:15:41 Lead Pressman [employer]: BEAR MEASUREMENT RESULTS: Intervals: Rate: 84 DC: 146 QRSD: 140 QT: 396 QTc: 467 [place]: P: 53 DC: 146 QRS: 45 T: 35 INTERPRETIVE STATEMENTS: Sinus rhythm with premature atrial complexes Right bundle branch block Abnormal ECG Compared to ECG 05/01/2016 19:58:12 Atrial premature complex(es) now present Sinus tachycardia no longer present Electronically Signed On 12-06-19 08:07:36 PLANT FLOOR AUTOMATION MANAGER by Jose C Miller
== END 2019-12-05 16:11 | disposition home or self-care (01) ==
LOC: ER 12:46
DX: J20.9 Acute bronchitis, unspecified (principal); Z88.6 Allergy status to analgesic agent; Z88.8 Allergy status to other drugs, medicaments and biological substances
CPT/HCPCS: 36415; 71045; 80048; 80076; 83735; 83880; 84145; 84484; 85025; 85610; 87040; 87804; 93005; 94640; 96374; 99284; J2930

== ENCOUNTER 2023-01-19 09:35 | Emergency (ER) | payer OTHER ==
--- OUTSIDE RECORDS SUMMARY | 2023-01-19 09:41 | XMS REPORT | Continuity of Care Document ---
:1935 Author Organization [facility] t Address [address] [place] [address] Care Team Providers Name Role Phone PCP, PATIENT DOES NOT HAVE A Primary Care Physician Unavaila Keeley Hoover MD Attending Clinician KEELEY GARSIA Attending Clinician Unavailable Warner Robertson Attending Clinician Anup Navarro Attending Clinician Mainor Leonardo Attending Clinician Jason Blankenship Attending Clinician Jason Blankenship Admitting Clinician Payers Payer Name Policy Type Policy Number Effective Date Expiration Date S ource Problems Condition Condition Condition Status Onset Resolution Last Treating Co mments Source Name Details Category Date Date Treatment Clinician Date BOWEL BOWEL Diagnosis Active 2019-02-15 Mem oria BLOCKAGE BLOCKAGE 01-29 16:19:00 l Active 00:00: Luis Angel 01/29/[address] [place] [address] FALL FALL Diagnosis Active 2015-02-17 Mem oria Active 02-17 18:23:00 l 02/17/2015 00:00: Quoc ramirez [address] CERBELLAR CERBELLAR Diagnosis Active 2015-04-23 Memoria SHEAR SHEAR 02-17 08:41:00 l INJURY INJURY 00:00: Luis Angel Active 00 02/17/2015 [facility] Aortic Aortic Problem Resolve 2019-02-01 Mem oria valve valve d 01:26:05 l stenosis stenosis Quoc n (disorder) (disorder) Resolved Problem 02/01/2019 [facility], DeeptiDeborah JAMEY Plasencia Asthma Asthma Problem Resolve 2019-02-01 Mem oria (disorder) (disorder) d 01:26:05 l Resolved Luis Angel Problem 02/01/2019 [facility], DeeptiDeborah Bautista JAMEY Plasencia Heart Heart Problem Resolve 2019-02-01 Raymundo issac valve valve d 01:26:05 l replacemen replacemen He rmann t t (procedure (procedure ) ) Resolved Problem 02/01/2019 [facility] Hypertensi Hypertens Problem Resolve 2019-02-01 Memoria ve pilo d 01:26:05 l disorder, disorder, Herm magali systemic systemic arterial arterial (disorder) (disorder) Resolved Problem 02/01/2019 [facility], Deborah Tatum Lily JAMEY Plasencia Hyperlipid Hyperlipi Problem Resolve 2019-02-01 Memoria emia demia d 01:26:05 l (disorder) (disorder) He rmann Resolved Problem 02/01/2019 [facility], Deepti Lily JAMEY Plasencia OTHER OTHER Diagnosis Active 2015-04-23 Mem oria GENERAL GENERAL 08:41:00 l SYMPTOMS SYMPTOMS Quoc n Active [facility] History of Past Illness Condition Condition Condition Status Onset Resolution Last Treating Co mments Source Name Details Category Date Date Treatment Clinician Date Constipati Constipat Problem 2019-02-01 2019-02-01 Memoria on, ion, - 01:26:05 01:26:05 l unspecifie unspecifie 05:00: He rmann d d 00 01/29/2019 02/01/2019 De[place] Allergies, Adverse Reactions, Alerts Allergy Allergy Status Severity Reaction(s) Onset Inactive Treating Comm ents Source Name Type Date Date Clinician Codeine Propensi Active Dizziness Univ ers ty to 07-29 ity of adverse 00:00: [place] reaction 00 Medical s Branch CODEINE DRUG Active Dizziness Univer s INGREDI 07-29 ity of 00:00: [place] 00 Medical Branch Epinephr Propensi Active Unknown - Uni vers ine ty to See comments 04-02 ity of adverse 00:00: [place] reaction 00 Medical s Branch EPINEPHR DRUG Active Unknown-Cmnt Un bob INE INGREDI 04-02 ity of 00:00: [place] 00 Medical Branch epinephr epinephr Active Memori a ine<sup> ine<sup> 4-23 l 1</sup> 1</sup> 05:00: [place] 00 Novocain Novocain Active Memori a l Luis Angel codeine codeine Active Memoria l [place] Darvon Darvon Active Memoria l Luis Angel lidocain lidocain Active Memori a e e l Luis Angel Social History Social Habit Start Date Stop Date Quantity Comments Source Exposure to Not sure [facility] SARS-CoV-2 [facility] (event) Branch Tobacco use and 2021-01-18 2021-01-18 Never used Universit y of exposure 00:00:00 00:00:00 [facility] Alcohol intake 2021-01-18 2021-01-18 Current University 00:00:00 00:00:00 non-drinker of [facility] alcohol Branch (finding) Social History 2015-02-18 2015-02-18 [facility] 07:59:08 07:59:08 Sex Ass[birth year] [facility] 00:00:00 00:00:00 Smoking Status Start Date Stop Date Source Tobacco smoking consumption [facility] unknown Never smoker [facility] Medications Ordered Filled Start Stop Current Ordering Indication Dosage Frequency Signature Comments Components Source Medication Medication Date Date Medication? Clinician (SIG) Name Name diclofenac Yes [id number] 75mg Take 1 Univers 75 mg EC 2-27 tablet by ity of tablet 00:00: mouth 2 (two) Medical times Branch daily with meals. Diclofenac Yes Apply U nivers Sodium 2-27 2mg-4mg to ity of (VOLTAREN) 00:00: affected [place] as 1 % gel 00 area 4 Medical times Branch daily diclofenac Yes [id number] 75mg Take 1 Univers 75 mg EC 2-27 tablet by ity of tablet 00:00: mouth 2 (two) Medical times Branch daily with meals. Diclofenac Yes Apply U nivers Sodium 2-27 2mg-4mg to ity of (VOLTAREN) 00:00: affected [place] as 1 % gel 00 area 4 Medical times Branch daily diclofenac 2020-0 Yes [id number] 75mg Take 1 Univers 75 mg EC 2-27 tablet by ity of tablet 00:00: mouth 2 [place] 00 (two) Medical times Branch daily with meals. Diclofenac 2020-0 Yes Apply U nivers Sodium 2-27 2mg-4mg to ity of (VOLTAREN) 00:00: affected [place] as 1 % gel 00 area 4 Medical times Branch daily diclofenac 2020-0 Yes [id number] 75mg Take 1 Univers 75 mg EC 2-27 tablet by ity of tablet 00:00: mouth 2 [place] 00 (two) Medical times Branch daily with meals. Diclofenac 2020-0 Yes Apply U nivers Sodium 2-27 2mg-4mg to ity of (VOLTAREN) 00:00: affected [place] as 1 % gel 00 area 4 Medical times Branch daily diclofenac 2020-0 Yes [id number] 75mg Take 1 Univers 75 mg EC 2-27 tablet by ity of tablet 00:00: mouth 2 [place] 00 (two) Medical times Branch daily with meals. Diclofenac 2020-0 Yes Apply U nivers Sodium 2-27 2mg-4mg to ity of (VOLTAREN) 00:00: affected [place] as 1 % gel 00 area 4 Medical times Branch daily methylPREDN 2018-0 Yes [id number] 84mg Take 21 Univers ISolone 7-18 tablets by ity of (MEDROL, 00:00: mouth [place] LOUISE,) 4 mg 00 SEE-INSTRU Med ical tablets CTIONS. Branch follow package directions methylPREDN Yes [id number] 84mg Take 21 Univers ISolone 7-18 tablets by ity of (MEDROL, 00:00: mouth [place] LOUISE,) 4 mg 00 SEE-INSTRU Med ical tablets CTIONS. Branch follow package directions methylPREDN 0 Yes [id number] 84mg Take 21 Univers ISolone 7-18 tablets by ity of (MEDROL, 00:00: mouth [place] LOUISE,) 4 mg 00 SEE-INSTRU Med ical tablets CTIONS. Branch follow package directions methylPREDN 2018- Yes [id number] 84mg Take 21 Univers ISolone 7-18 tablets by ity of (MEDROL, 00:00: mouth [place] LOUISE,) 4 mg 00 SEE-INSTRU Med ical tablets CTIONS. Branch follow package directions methylPREDN Yes [id number] 84mg Take 21 Univers ISolone 7-18 tablets by ity of (MEDROL, 00:00: mouth [place] LOUISE,) 4 mg 00 SEE-INSTRU Med ical tablets CTIONS. Branch follow package directions methylPREDN Yes [id number] 84mg Take 21 Univers ISolone 7-18 tablets by ity of (MEDROL, 00:00: mouth [place] LOUISE,) 4 mg 00 SEE-INSTRU Med ical tablets CTIONS. Branch follow package directions methylPREDN Yes [id number] 84mg Take 21 Univers ISolone 7-18 tablets by ity of (MEDROL, 00:00: mouth [place] LOUISE,) 4 mg 00 SEE-INSTRU Med ical tablets CTIONS. Branch follow package directions methylPREDN Yes [id number] 84mg Take 21 Univers ISolone 7-18 tablets by ity of (MEDROL, 00:00: mouth [place] LOUISE,) 4 mg 00 SEE-INSTRU Med ical tablets CTIONS. Branch follow package directions POLYETHYLEN Yes 17 gm, PO, Memoria E GLYCOL 3-13 Daily, PRN l [id number] 02:05: Constipati Her whitlock MG/ML Oral 00 on, X 7 Solution day, # 255 [Miralax] gm, 0 Refill(s) Saline No Notes: Memoria Flush 0.9% -12 (Same as: l 19:38: BD [place] 00 Posiflush) DOCOSAHEXAN Yes Take by Eayun vers OIC 07-29 mouth ity of ACID/EPA 18:41: daily. [place] (FISH OIL 54 Medical ORAL) Branch Cholecalcif Yes Take by Eayun vers geovanny, 07-29 mouth ity of Vitamin D3, 18:41: daily. Al hsie[place] (VITAMIN 54 Medical D3) 1,000 Branch unit Cap CYANOCOBALA Yes 2500ug Take 2,500 Univers MIN, 07-29 mcg by ity of VITAMIN 18:41: mouth [place] B-12, 54 daily. Medical (VITAMIN Branch B-12 ORAL) MULTIVITS Yes Take by Unive rs W-IRON,KAREN 07-29 mouth ity of TINIC 18:41: daily. [place] ([place] [address] Medical B-COMPLEX Branch ORAL) Magnesium Yes Take by Unive rs 250 mg Tab 07-29 mouth ity of 18:41: daily. [place] [address] Medical Branch IPRATROPIUM Yes Inhale as U nivers BROMIDE 07-29 needed. ity of INHALE 18:41: [place] [address] Medical Branch albuterol Yes 2.5mg Inhale 2.5 U nivers (PROVENTIL) 07-29 mg every 4 it y of 2.5 mg /3 18:41: (four) [place] mL (0.083 54 hours as Medica l %) needed for Branch nebulizer Wheezing solution or Shortness of Breath. diltiazem Yes 300mg Take 300 Uni vers (CARDIZEM 07-29 mg by ity of CD) 300 mg 18:41: mouth [place] 24 hr 54 daily. Medical capsule Branch LORATADINE Yes Take by Univ ers (CLARITIN 07-29 mouth ity of ORAL) 18:41: daily. [place] [address] Medical Branch FLUTICASONE Yes Inhale Univ ers /SALMETEROL 07-29 daily. ity of (ADVAIR 18:41: [place] DISKUS Medical INHALE) Branch losartan Yes 100mg Take 100 Univ ers (COZAAR) 07-29 mg by ity of 100 mg 18:41: mouth [place] tablet 54 daily. Medical Branch aspirin 81 Yes 81mg Take 81 mg U nivers mg chewable 07-29 by mouth ity of tablet 18:41: daily. [place] [address] Medical Branch montelukast Yes 10mg Take 10 mg Univers (SINGULAIR) 07-29 by mouth ity of 10 mg 18:41: daily. [place] [address] Medical Branch guaiFENesin Yes Take by Uni vers (MUCINEX) 07-29 mouth. ity of 600 mg Ta12 18:41: [place] [address] Medical Branch FOLIC Yes Take by Univers ACID/MULTIV 07-29 mouth ity of IT-MIN/LUTE 18:41: daily. [place] IN (CENTRUM Medical SILVER Branch ORAL) DOCOSAHEXAN Yes Take by Uni vers OIC 07-29 mouth ity of ACID/EPA 18:41: daily. [place] (FISH OIL 54 Medical ORAL) Branch Cholecalcif Yes Take by Uni vers geovanny, 07-29 mouth ity of Vitamin D3, 18:41: [facility] D[facility] 1,000 Branch unit Cap CYANOCOBALA Yes 2500ug Take 2,500 Univers MIN, 07-29 mcg by ity of VITAMIN 18:41: mouth [place] B-12, 54 daily. Medical (VITAMIN Branch B-12 ORAL) MULTIVITS Yes [facility]KAREN 07-29 mouth ity of TINIC 18:41: daily. [place] (SUPER Medical B-COMPLEX Branch ORAL) Magnesium Yes [facility] mg Tab 07-29 mouth ity of 18:41: daily. [place] [address] Medical Branch IPRATROPIUM Yes Inhale as U nivers BROMIDE 07-29 needed. ity of INHALE 18:41: [place] [address] Medical Branch albuterol Yes 2.5mg Inhale 2.5 U nivers (PROVENTIL) 07-29 mg every 4 it y of 2.5 mg /3 18:41: (four) [place] mL (0.083 54 hours as Medica l %) needed for Branch nebulizer Wheezing solution or Shortness of Breath. diltiazem Yes 300mg Take 300 Uni vers (CARDIZEM - mg by ity of CD) 300 mg 18:41: mouth [place] 24 hr 54 daily. Medical capsule Branch LORATADINE Yes Take by [facility] ers (CLARITIN 07-29 mouth ity of ORAL) 18:41: daily. [place] [address] Medical Branch FLUTICASONE Yes Inhale Univ ers /SALMETEROL 07-29 daily. ity of (ADVAIR 18:41: [place] DISKUS 54 Medical INHALE) Branch losartan Yes 100mg Take 100 Univ ers (COZAAR) - mg by ity of 100 mg 18:41: mouth [place] tablet 54 daily. Medical Branch aspirin 81 Yes 81mg Take 81 mg U nivers mg chewable 07-29 by mouth ity of tablet 18:41: daily. [place] [address] Medical Branch montelukast Yes 10mg Take 10 mg Univers (SINGULAIR) 07-29 by mouth ity of 10 mg 18:41: daily. [place] tablet Medical Branch guaiFENesin Yes Take by Uni vers (MUCINEX) 07-29 mouth. ity of 600 mg Ta12 18:41: [place] [address] Medical Branch FOLIC Yes Take by Univers ACID/MULTIV 07-29 mouth ity of IT-MIN/LUTE 18:41: daily. Al s IN (CENTRUM 54 Medical SILVER Branch ORAL) DOCOSAHEXAN Yes Take by Uni vers OIC 07-29 mouth ity of ACID/EPA 18:41: daily. [place] (FISH OIL 54 Medical ORAL) Branch Cholecalcif Yes Take by Uni vers geovanny, 07-29 mouth ity of Vitamin D3, 18:41: daily. Al s (VITAMIN 54 Medical D3) 1,000 Branch unit Cap CYANOCOBALA Yes 2500ug Take 2,500 Univers MIN, 07-29 mcg by ity of VITAMIN 18:41: mouth [place] B-12, 54 daily. Medical (VITAMIN Branch B-12 ORAL) MULTIVITS Yes Take by meebeee rs W-IRON,KAREN 07-29 mouth ity of TINIC 18:41: daily. [place] (SUPER 54 Medical B-COMPLEX Branch ORAL) Magnesium Yes Take by Unive rs 250 mg Tab 07-29 mouth ity of 18:41: daily. [place] [address] Medical Branch IPRATROPIUM Yes Inhale as U nivers BROMIDE 07-29 needed. ity of INHALE 18:41: [place] [address] Medical Branch albuterol Yes 2.5mg Inhale 2.5 U nivers (PROVENTIL) 07-29 mg every 4 it y of 2.5 mg /3 18:41: (four) [place] mL (0.083 54 hours as Medica l %) needed for Branch nebulizer Wheezing solution or Shortness of Breath. diltiazem Yes 300mg Take 300 Uni vers (CARDIZEM 9- mg by ity of CD) 300 mg 18:41: mouth [place] 24 hr 54 daily. Medical capsule Branch LORATADINE Yes Take by Univ ers (CLARITIN 07-29 mouth ity of ORAL) 18:41: daily. [place] [address] Medical Branch FLUTICASONE Yes Inhale Univ ers /SALMETEROL 9-09 daily. ity of (ADVAIR 18:41: [place] DISKUS 54 Medical INHALE) Branch losartan Yes 100mg Take 100 Univ ers (COZAAR) 07-29 mg by ity of 100 mg 18:41: mouth [place] tablet 54 daily. Medical Branch aspirin 81 Yes 81mg Take 81 mg U nivers mg chewable 07-29 by mouth ity of tablet 18:41: daily. [place] [address] Medical Branch montelukast Yes 10mg Take 10 mg Univers (SINGULAIR) 07-29 by mouth ity of 10 mg 18:41: daily. [place] tablet Medical Branch guaiFENesin Yes Take by Uni vers (MUCINEX) 07-29 mouth. ity of 600 mg Ta12 18:41: [place] [address] Medical Branch FOLIC Yes Take by Univers ACID/MULTIV 07-29 mouth ity of IT-MIN/LUTE 18:41: daily. Al s IN (CENTRUM 54 Medical SILVER Branch ORAL) DOCOSAHEXAN Yes Take by Uni vers OIC 07-29 mouth ity of ACID/EPA 18:41: daily. [place] (FISH OIL 54 Medical ORAL) Branch Cholecalcif Yes Take by Uni vers geovanny, 07-29 mouth ity of Vitamin D3, 18:41: daily. Al s (VITAMIN 54 Medical D3) 1,000 Branch unit Cap CYANOCOBALA Yes 2500ug Take 2,500 Univers MIN, 07-29 mcg by ity of VITAMIN 18:41: mouth [place] B-12, 54 daily. Medical (VITAMIN Branch B-12 ORAL) MULTIVITS Yes Take by Unive rs W-IRON,KAREN 07-29 mouth ity of TINIC 18:41: daily. [place] (SUPER 54 Medical B-COMPLEX Branch ORAL) Magnesium Yes Take by Unive rs 250 mg Tab 07-29 mouth ity of 18:41: daily. [place] [address] Medical Branch IPRATROPIUM Yes Inhale as U nivers BROMIDE 07-29 needed. ity of INHALE 18:41: [place] [address] Medical Branch albuterol Yes 2.5mg Inhale 2.5 U nivers (PROVENTIL) 07-29 mg every 4 it y of 2.5 mg /3 18:41: (four) [place] mL (0.083 54 hours as Medica l %) needed for Branch nebulizer Wheezing solution or Shortness of Breath. diltiazem Yes 300mg Take 300 Uni vers (CARDIZEM 9-09 mg by ity of CD) 300 mg 18:41: mouth [place] 24 hr 54 daily. Medical capsule Branch LORATADINE Yes Take by Univ ers (CLARITIN 07-29 mouth ity of ORAL) 18:41: daily. [place] [address] Medical Branch FLUTICASONE Yes Inhale Univ ers /SALMETEROL 07-29 daily. ity of (ADVAIR 18:41: [place] DISKUS 54 Medical INHALE) Branch diltiazem Yes 300mg Take 300 Uni vers (CARDIZEM 9-09 mg by ity of CD) 300 mg 18:41: mouth [place] 24 hr 54 daily. Medical capsule Branch losartan Yes 100mg Take 100 Univ ers (COZAAR) 07-29 mg by ity of 100 mg 18:41: mouth [place] tablet 54 daily. Medical Branch aspirin 81 Yes 81mg Take 81 mg U nivers mg chewable 07-29 by mouth ity of tablet 18:41: daily. [place] [address] Medical Branch montelukast Yes 10mg Take 10 mg Univers (SINGULAIR) 07-29 by mouth ity of 10 mg 18:41: daily. [place] [address] Medical Branch guaiFENesin Yes Take by Uni vers (MUCINEX) 07-29 mouth. ity of 600 mg Ta12 18:41: [place] [address] Medical Branch FOLIC Yes Take by Univers ACID/MULTIV 07-29 mouth ity of IT-MIN/LUTE 18:41: daily. [place] (CENTRUM 54 Medical SILVER Branch ORAL) DOCOSAHEXAN Yes Take by Uni vers OIC 07-29 mouth ity of ACID/EPA 18:41: daily. [place] (FISH OIL 54 Medical ORAL) Branch Cholecalcif Yes Take by Uni vers geovanny, 07-29 mouth ity of Vitamin D3, 18:41: daily. [place] (VITAMIN 54 Medical D3) 1,000 Branch unit Cap CYANOCOBALA Yes 2500ug Take 2,500 Univers MIN, 07-29 mcg by ity of VITAMIN 18:41: mouth [place] B-12, 54 daily. Medical (VITAMIN Branch B-12 ORAL) MULTIVITS Yes Take by Unive rs W-IRON,KAREN 07-29 mouth ity of TINIC 18:41: daily. [place] (SUPER 54 Medical B-COMPLEX Branch ORAL) Magnesium Yes Take by Unive rs 250 mg Tab 07-29 mouth ity of 18:41: daily. [place] [address] Medical Branch LORATADINE Yes Take by Univ ers (CLARITIN 07-29 mouth ity of ORAL) 18:41: daily. [place] [address] Medical Branch IPRATROPIUM Yes Inhale as U nivers BROMIDE 07-29 needed. ity of INHALE 18:41: [place] [address] Medical Branch albuterol Yes 2.5mg Inhale 2.5 U nivers (PROVENTIL) 07-29 mg every 4 it y of 2.5 mg /3 18:41: (four) [place] mL (0.083 54 hours as Medica l %) needed for Branch nebulizer Wheezing solution or Shortness of Breath. FLUTICASONE Yes Inhale Univ ers /SALMETEROL 07-29 daily. ity of (ADVAIR 18:41: [place] DISKUS 54 Medical INHALE) Branch losartan Yes 100mg Take 100 Univ ers (COZAAR) 07-29 mg by ity of 100 mg 18:41: mouth [place] tablet 54 daily. Medical Branch aspirin 81 Yes 81mg Take 81 mg U nivers mg chewable 07-29 by mouth ity of tablet 18:41: daily. [place] [address] Medical Branch montelukast Yes 10mg Take 10 mg Univers (SINGULAIR) 07-29 by mouth ity of 10 mg 18:41: daily. [place] tablet 54 Medical Branch guaiFENesin Yes Take by Uni vers (MUCINEX) 07-29 mouth. ity of 600 mg Ta12 18:41: [place] [address] Medical Branch FOLIC Yes Take by Univers ACID/MULTIV 07-29 mouth ity of IT-MIN/LUTE 18:41: daily. [place] IN (CENTRUM 54 Medical SILVER Branch ORAL) DOCOSAHEXAN Yes Take by Uni vers OIC 07-29 mouth ity of ACID/EPA 18:41: daily. [place] (FISH OIL 54 Medical ORAL) Branch Cholecalcif Yes Take by Uni vers geovanny, 07-29 mouth ity of Vitamin D3, 18:41: daily. [place] (VITAMIN 54 Medical D3) 1,000 Branch unit Cap CYANOCOBALA Yes 2500ug Take 2,500 Univers MIN, 07-29 mcg by ity of VITAMIN 18:41: mouth [place] B-12, 54 daily. Medical (VITAMIN Branch B-12 ORAL) MULTIVITS Yes [facility]KAREN 07-29 mouth ity of TINIC 18:41: daily. [place] (SUPER Medical B-COMPLEX Branch ORAL) Magnesium Yes Take by Unive rs 250 mg Tab 07-29 mouth ity of 18:41: daily. [place] [address] Medical Branch IPRATROPIUM Yes Inhale as U nivers BROMIDE 07-29 needed. ity of INHALE 18:41: [address] Branch albuterol Yes 2.5mg Inhale 2.5 U nivers (PROVENTIL) - mg every 4 it y of 2.5 mg /3 18:41: (four) [place] mL (0.083 54 hours as Medica l %) needed for Branch nebulizer Wheezing solution or Shortness of Breath. diltiazem Yes 300mg Take 300 Uni vers (CARDIZEM 9- mg by ity of CD) 300 mg 18:41: mouth [place] 24 hr 54 daily. Medical capsule Branch LORATADINE Yes Take by [facility] ers (CLARITIN 07-29 mouth ity of ORAL) 18:41: daily. [address] Branch FLUTICASONE Yes Inhale Univ ers /SALMETEROL 07-29 daily. ity of (ADVAIR 18:41: [place] DISKUS Medical INHALE) Branch losartan Yes 100mg Take 100 Univ ers (COZAAR) 9- mg by ity of 100 mg 18:41: mouth [place] tablet 54 daily. Medical Branch aspirin 81 Yes 81mg Take 81 mg U nivers mg chewable 07-29 by mouth ity of tablet 18:41: daily. [address] Branch montelukast Yes 10mg Take 10 mg Univers (SINGULAIR) 07-29 by mouth ity of 10 mg 18:41: daily. [place] tablet Medical Branch guaiFENesin Yes Take by Uni vers (MUCINEX) 07-29 mouth. ity of 600 mg Ta12 18:41: [place] [address] Medical Branch FOLIC Yes Take by [facility] ACID/MULTIV 07-29 mouth ity of IT-MIN/LUTE 18:41: daily. Al s IN (CENTRUM 54 Medical SILVER Branch ORAL) DOCOSAHEXAN Yes Take by Uni vers OIC 07-29 mouth ity of ACID/EPA 18:41: daily. [place] (FISH OIL 54 Medical ORAL) Branch Cholecalcif Yes Take by Uni vers geovanny, 07-29 mouth ity of Vitamin D3, 18:41: daily. Al s (VITAMIN 54 Medical D3) 1,000 Branch unit Cap CYANOCOBALA Yes 2500ug Take 2,500 Univers MIN, 07-29 mcg by ity of VITAMIN 18:41: mouth [place] B-12, 54 daily. Medical (VITAMIN Branch B-12 ORAL) MULTIVITS Yes [facility] W-[facility]ON,KAREN 07-29 mouth ity of TINIC 18:41: daily. [place] (SUPER 54 Medical B-COMPLEX Branch ORAL) Magnesium Yes [facility] mg Tab 07-29 mouth ity of 18:41: daily. [place] [address] Medical Branch IPRATROPIUM Yes Inhale as U nivers BROMIDE 07-29 needed. ity of INHALE 18:41: [place] [address] Medical Branch albuterol Yes 2.5mg Inhale 2.5 U nivers (PROVENTIL) 07-29 mg every 4 it y of 2.5 mg /3 18:41: (four) [place] mL (0.083 54 hours as Medica l %) needed for Branch nebulizer Wheezing solution or Shortness of Breath. diltiazem Yes 300mg Take 300 Uni vers (CARDIZEM 9- mg by ity of CD) 300 mg 18:41: mouth [place] 24 hr 54 daily. Medical capsule Branch LORATADINE Yes Take by [facility] ers (CLARITIN 07-29 mouth ity of ORAL) 18:41: daily. [place] [address] Medical Branch FLUTICASONE Yes Inhale Univ ers /SALMETEROL 07-29 daily. ity of (ADVAIR 18:41: [place] DISKUS 54 Medical INHALE) Branch losartan Yes 100mg Take 100 Univ ers (COZAAR) 07-29 mg by ity of 100 mg 18:41: mouth [place] tablet 54 daily. Medical Branch aspirin 81 Yes 81mg Take 81 mg U nivers mg chewable 07-29 by mouth ity of tablet 18:41: daily. [place] [address] Medical Branch montelukast Yes 10mg Take 10 mg Univers (SINGULAIR) 07-29 by mouth ity of 10 mg 18:41: daily. [place] tablet 54 Medical Branch guaiFENesin Yes Take by Uni vers (MUCINEX) 07-29 mouth. ity of 600 mg Ta12 18:41: [address] Branch FOLIC Yes Take by Univers ACID/MULTIV 07-29 mouth ity of IT-MIN/LUTE 18:41: daily. [place] (CENTRUM 54 Medical SILVER Branch ORAL) DOCOSAHEXAN Yes Take by Uni vers OIC 07-29 mouth ity of ACID/EPA 18:41: daily. [place] (FISH OIL 54 Medical ORAL) Branch Cholecalcif Yes Take by Uni vers geovanny, 07-29 mouth ity of Vitamin D3, 18:41: daily. [place] (VITAMIN 54 Medical D3) 1,000 Branch unit Cap CYANOCOBALA Yes 2500ug Take 2,500 Univers MIN, 07-29 mcg by ity of VITAMIN 18:41: mouth [place] B-12, 54 daily. Medical (VITAMIN Branch B-12 ORAL) MULTIVITS Yes Take by Unive rs W-IRON,KAREN 07-29 mouth ity of TINIC 18:41: daily. [place] (SUPER 54 Medical B-COMPLEX Branch ORAL) Magnesium Yes Take by Unive rs 250 mg Tab 07-29 mouth ity of 18:41: daily. [place] [address] Medical Branch IPRATROPIUM Yes Inhale as U nivers BROMIDE 07-29 needed. ity of INHALE 18:41: [place] [address] Medical Branch albuterol Yes 2.5mg Inhale 2.5 U nivers (PROVENTIL) 07-29 mg every 4 it y of 2.5 mg /3 18:41: (four) [place] mL (0.083 54 hours as Medica l %) needed for Branch nebulizer Wheezing solution or Shortness of Breath. diltiazem Yes 300mg Take 300 Uni vers (CARDIZEM 9- mg by ity of CD) 300 mg 18:41: mouth [place] 24 hr 54 daily. Medical capsule Branch LORATADINE Yes Take by [facility] ers (CLARITIN 07-29 mouth ity of ORAL) 18:41: daily. [place] [address] Medical Branch FLUTICASONE Yes Inhale Univ ers /SALMETEROL 07-29 daily. ity of (ADVAIR 18:41: [place] DISKUS 54 Medical INHALE) Branch losartan Yes 100mg Take 100 Univ ers (COZAAR) 07-29 mg by ity of 100 mg 18:41: mouth [place] tablet 54 daily. Medical Branch aspirin 81 Yes 81mg Take 81 mg U nivers mg chewable 07-29 by mouth ity of tablet 18:41: daily. [place] [address] Medical Branch montelukast Yes 10mg Take 10 mg Univers (SINGULAIR) 07-29 by mouth ity of 10 mg 18:41: daily. [place] [address] Medical Branch guaiFENesin Yes Take by Uni vers (MUCINEX) 07-29 mouth. ity of 600 mg Ta12 18:41: [place] [id number] Medical Branch FOLIC Yes Take by Univers ACID/MULTIV 07-29 mouth ity of IT-MIN/LUTE 18:41[place] (CENTRUM 54 Medical SILVER Branch ORAL) lidocaine Yes Apply to [facility] ers (LIDODERM) 9 lower back ity of 5 % (700 00:00: at 9pm and [place] as mg/patch) 00 remove at Medic al patch 9 am daily Branch lidocaine Yes Apply to [facility] ers (LIDODERM) 909 lower back ity of 5 % (700 00:00: at 9pm and [place] as mg/patch) 00 remove at Medic al patch 9 am daily Branch lidocaine Yes Apply to Univ ers (LIDODERM) 909 lower back ity of 5 % (700 00:00: at 9pm and [place] as mg/patch) 00 remove at Medic al patch 9 am daily Branch lidocaine Yes Apply to [facility] ers (LIDODERM) 07-29 lower back ity of 5 % (700 00:00: at 9pm and [place] as mg/patch) 00 remove at Medic al patch 9 am daily Branch lidocaine Yes Apply to Univ ers (LIDODERM) 9-09 lower back ity of 5 % (700 00:00: at 9pm and [place] as mg/patch) 00 remove at Medic al patch 9 am daily Branch lidocaine Yes Apply to Univ ers (LIDODERM) 9-09 lower back ity of 5 % (700 00:00: at 9pm and [place] as mg/patch) 00 remove at Medic al patch 9 am daily Branch lidocaine Yes Apply to Univ ers (LIDODERM) 9-09 lower back ity of 5 % (700 00:00: at 9pm and [place] as mg/patch) 00 remove at Medic al patch 9 am daily Branch lidocaine Yes Apply to Univ ers (LIDODERM) 9-09 lower back ity of 5 % (700 00:00: at 9pm and [place] as mg/patch) 00 remove at Medic al patch 9 am daily Branch acetaminoph Yes 1{tbl} Take 1 Tab Univers en-codeine 8-24 by mouth ity o f (TYLENOL 00:00: every 6 [place] #3) 300-30 00 (six) Medical mg tablet hours as Branch needed for Pain unrelieved by non-narcot ic analgesics (prn pain of the low back). acetaminoph Yes 1{tbl} Take 1 Tab Univers en-codeine 8-24 by mouth ity o f (TYLENOL 00:00: every 6 [place] #3) 300-30 00 (six) Medical mg tablet hours as Branch needed for Pain unrelieved by non-narcot ic analgesics (prn pain of the low back). acetaminoph Yes 1{tbl} Take 1 Tab Univers en-codeine 8-24 by mouth ity o f (TYLENOL 00:00: every 6 [place] #3) 300-30 00 (six) Medical mg tablet hours as Branch needed for Pain unrelieved by non-narcot ic analgesics (prn pain of the low back). acetaminoph Yes 1{tbl} Take 1 Tab Univers en-codeine 8-24 by mouth ity o f (TYLENOL 00:00: every 6 [place] #3) 300-30 00 (six) Medical mg tablet hours as Branch needed for Pain unrelieved by non-narcot ic analgesics (prn pain of the low back). acetaminoph Yes 1{tbl} Take 1 Tab Univers en-codeine 8-24 by mouth ity o f (TYLENOL 00:00: every 6 [place] #3) 300-30 00 (six) Medical mg tablet hours as Branch needed for Pain unrelieved by non-narcot ic analgesics (prn pain of the low back). acetaminoph Yes 1{tbl} Take 1 Tab Univers en-codeine 8-24 by mouth ity o f (TYLENOL 00:00: every 6 [place] #3) 300-30 00 (six) Medical mg tablet hours as Branch needed for Pain unrelieved by non-narcot ic analgesics (prn pain of the low back). acetaminoph Yes 1{tbl} Take 1 Tab Univers en-codeine 8-24 by mouth ity o f (TYLENOL 00:00: every 6 [place] #3) 300-30 00 (six) Medical mg tablet hours as Branch needed for Pain unrelieved by non-narcot ic analgesics (prn pain of the low back). acetaminoph Yes 1{tbl} Take 1 Tab Univers en-codeine 8-24 by mouth ity o f (TYLENOL 00:00: every 6 [place] #3) 300-30 00 (six) Medical mg tablet hours as Branch needed for Pain unrelieved by non-narcot ic analgesics (prn pain of the low back). triamcinolo Yes [id number] Apply to [facility] 06-05 area(s) 2 ity of acetonide 00:00: (two) [place] (TRIDERM) 00 times Medical 0.1 % cream daily. Branch fluticasone Yes [id number] 2{spray Use 2 [facility] (FLONASE 06-05 } Sprays in ity of ALLERGY 00:00: each [place] RELIEF) 50 00 nostril Medica l mcg/actuati daily. Branch on nasal spray omeprazole Yes [facility] (PRILOSEC) 06-05 ity of 20 mg 00:00: [place] capsule 00 Medical Branch triamcinolo Yes [id number] Apply to Univers ne 7-17 area(s) 2 ity of acetonide 00:00: (two) [place] (TRIDERM) 00 times Medical 0.1 % cream daily. Branch fluticasone Yes [id number] 2{spray Use 2 Univers (FLONASE 7-17 } Sprays in ity of ALLERGY 00:00: each [place] RELIEF) 50 00 nostril Medica l mcg/actuati daily. Branch on nasal spray omeprazole Yes Univers (PRILOSEC) 7-17 ity of 20 mg 00:00: [place] capsule 00 Medical Branch triamcinolo Yes [id number] Apply to Univers ne 7-17 area(s) 2 ity of acetonide 00:00: (two) [place] (TRIDERM) 00 times Medical 0.1 % cream daily. Branch fluticasone Yes [id number] 2{spray Use 2 Univers (FLONASE 7-17 } Sprays in ity of ALLERGY 00:00: each [place] RELIEF) 50 00 nostril Medica l mcg/actuati daily. Branch on nasal spray omeprazole Yes Univers (PRILOSEC) 7-17 ity of 20 mg 00:00: [place] capsule 00 Medical Branch triamcinolo Yes [id number] Apply to Univers ne 7-17 area(s) 2 ity of acetonide 00:00: (two) [place] (TRIDERM) 00 times Medical 0.1 % cream daily. Branch fluticasone Yes [id number] 2{spray Use 2 Univers (FLONASE 7-17 } Sprays in ity of ALLERGY 00:00: each [place] RELIEF) 50 00 nostril Medica l mcg/actuati daily. Branch on nasal spray omeprazole Yes Univers (PRILOSEC) 7-17 ity of 20 mg 00:00: [place] capsule 00 Medical Branch triamcinolo Yes [id number] Apply to Univers ne 7-17 area(s) 2 ity of acetonide 00:00: (two) [place] (TRIDERM) 00 times Medical 0.1 % cream daily. Branch fluticasone Yes [id number] 2{spray Use 2 Univers (FLONASE 7-17 } Sprays in ity of ALLERGY 00:00: each [place] RELIEF) 50 00 nostril Medica l mcg/actuati daily. Branch on nasal spray omeprazole Yes Univers (PRILOSEC) 7-17 ity of 20 mg 00:00: [place] capsule 00 Medical Branch triamcinolo Yes [id number] Apply to Univers ne 7-17 area(s) 2 ity of acetonide 00:00: (two) [place] (TRIDERM) 00 times Medical 0.1 % cream daily. Branch fluticasone Yes [id number] 2{spray Use 2 Univers (FLONASE 7-17 } Sprays in ity of ALLERGY 00:00: each [place] RELIEF) 50 00 nostril Medica l mcg/actuati daily. Branch on nasal spray omeprazole Yes Univers (PRILOSEC) 7-17 ity of 20 mg 00:00: [place] capsule 00 Medical Branch triamcinolo Yes [id number] Apply to Univers ne 7-17 area(s) 2 ity of acetonide 00:00: (two) [place] (TRIDERM) 00 times Medical 0.1 % cream daily. Branch fluticasone Yes [id number] 2{spray Use 2 Univers (FLONASE 7-17 } Sprays in ity of ALLERGY 00:00: each [place] RELIEF) 50 00 nostril Medica l mcg/actuati daily. Branch on nasal spray omeprazole Yes Univers (PRILOSEC) 7-17 ity of 20 mg 00:00: [place] capsule 00 Medical Branch triamcinolo Yes [id number] Apply to Univers ne 7-17 area(s) 2 ity of acetonide 00:00: (two) [place] (TRIDERM) 00 times Medical 0.1 % cream daily. Branch fluticasone Yes [id number] 2{spray Use 2 Univers (FLONASE 7-17 } Sprays in ity of ALLERGY 00:00: each [place] RELIEF) 50 00 nostril Medica l mcg/actuati daily. Branch on nasal spray omeprazole Yes Univers (PRILOSEC) 7-17 ity of 20 mg 00:00: [place] capsule 00 Medical Branch albuterol Yes [id number] 2{puff} Inhale 2 Univers (VENTOLIN 5-14 Puffs ity of HFA) 90 00:00: every 4 [place] mcg/actuati 00 (four) Medica l on inhaler hours as Branc h needed for Wheezing or Shortness of Breath. albuterol Yes [id number] 2{puff} Inhale 2 Univers (VENTOLIN 5-14 Puffs ity of HFA) 90 00:00: every 4 [place] mcg/actuati 00 (four) Medica l on inhaler hours as Branc h needed for Wheezing or Shortness of Breath. albuterol Yes [id number] 2{puff} Inhale 2 Univers (VENTOLIN 5-14 Puffs ity of HFA) 90 00:00: every 4 [place] mcg/actuati 00 (four) Medica l on inhaler hours as Branc h needed for Wheezing or Shortness of Breath. albuterol Yes [id number] 2{puff} Inhale 2 Univers (VENTOLIN 5-14 Puffs ity of HFA) 90 00:00: every 4 [place] mcg/actuati 00 (four) Medica l on inhaler hours as Branc h needed for Wheezing or Shortness of Breath. albuterol Yes [id number] 2{puff} Inhale 2 Univers (VENTOLIN 5-14 Puffs ity of HFA) 90 00:00: every 4 [place] mcg/actuati 00 (four) Medica l on inhaler hours as Branc h needed for Wheezing or Shortness of Breath. albuterol Yes [id number] 2{puff} Inhale 2 Univers (VENTOLIN 5-14 Puffs ity of HFA) 90 00:00: every 4 [place] mcg/actuati 00 (four) Medica l on inhaler hours as Branc h needed for Wheezing or Shortness of Breath. albuterol Yes [id number] 2{puff} Inhale 2 Univers (VENTOLIN 5-14 Puffs ity of HFA) 90 00:00: every 4 [place] mcg/actuati 00 (four) Medica l on inhaler hours as Branc h needed for Wheezing or Shortness of Breath. albuterol Yes [id number] 2{puff} Inhale 2 Univers (VENTOLIN 5-14 Puffs ity of HFA) 90 00:00: every 4 [place] mcg/actuati 00 (four) Medica l on inhaler hours as Branc h needed for Wheezing or Shortness of Breath. ibuprofen Yes 600 mg = 1 Me moria 600 mg oral 4-05 tab, PO, l tablet 19:26: Q8H, # 30 [place] 00 tab, 0 Refill(s) docusate Yes 100 mg = 1 Mem oria sodium 100 4-05 cap, PO, l mg oral 19:26: BID, # 40 Rea nn capsule 00 cap, 0 Refill(s) acetaminoph Yes 650 mg = 2 Memoria en 325 mg 4-05 tab, PO, l oral tablet 19:26: Q4H, PRN [place] r[place] 00 Pain Score 1-3, # 40 tab, 0 Refill(s) Budesonide No 2 Memoria 0.16 4-05 inhalation l MG/ACTUAT / 19:26: , [place] n formoterol 00 INHALATION fumarate , RDaily, 0.0045 # 1 ea, 0 MG/ACTUAT Refill(s) Metered Dose Inhaler potassium No Notes: Memori a chloride 4-05 (Same as: l 19:24: Potassium Luis Angel Chloride) Advair No 1 Memoria Diskus 250 4-05 inhalation l mcg-50 mcg 14:00: , Route: [place] inhalation 00 INHALER, powder Drug Form: AERO, Dosing Weight 68.1, kg, Daily, Start date: 02/22/15 9:00:00, Duration: 30 day, Stop date: 03/23/15 9:00:00 Calcium No 3,000 mg, Memor ia Gluconate 4-05 30 mL, l 13:07: Route: Luis Angel 00 IVPB, ONCE, Dosing Weight 68.1, kg, Start date: 02/22/15 8:07:00, Stop date: 02/22/15 8:07:00 potassium No Notes: Memori a chloride 4-05 (Same as: l 13:00: KCL) Luis Angel 00 Infuse no faster than 10 mEq/hr if given peripheral ly. Carmex No 1 appl, Memoria 4-05 Route: l 02:36: TOP, PRN, [place] 00 Drug form: STIC, PRN Dry Lips, Start date: 02/21/15 21:36:00, Duration: 30 day, Stop date: 03/23/15 21:35:00 Singulair No Notes: Memori a 4-05 (Same l 02:00: as:Singula Luis Angel 00 ir) budesonide- No Notes: Raymundo issac formoterol -04 (Same as: l 160 mcg-4.5 21:00: Symbicort) [place] mcg/inh 00 inhalation aerosol with adapter Tylenol No Notes: Do Memor ia 02-21 not exceed l 02:07: 4 gm/day. [place] (Same as: Tylenol) Motrin No Notes: Memoria 02-20 (Same as: l 13:00: Motrin) "Do Not Crush" Take with food. Enoxaparin No 30 mg, Memor ia 02-19 Route: l 13:00: SUB-Q, Drug form: INJ, [id number], Dosing Weight 68.1, kg, Start date: 02/19/15 8:00:00, Duration: 30 day, Stop date: 03/20/15 20:00:00 Tramadol No Notes: Not Mem oria 02-18 to exceed l 23:00: 400mg/day. Luis Angel 00 (Same As: Ultram) Protonix No Notes: Memoria - Tablet l 21:30: should not be chewed or crushed. (Same as: Protonix) Lovenox No Notes: Memoria 4- (Same as: l 19:00: Lovenox) Dilantin No Notes: Memoria 4-01 (Same as: l 18:15: Dilantin) Do not infuse greater than 50 mg/min. MEDICATION WASTE Product Size: 100 mg Product Wasted: ___ mg senna 8.6 No Notes: Memori a mg oral - (Same as: l tablet 14:00: Senokot) Docusate No Notes: Memoria 4-01 (Same as: l 14:00: Colace) (Do Not Crush) Omeprazole No 20 mg, Memor ia 02-18 Route: PO, l 14:00: Drug form: ECTAB, Daily, Dosing Weight 68.1, kg, Start date: 02/18/15 9:00:00, Duration: 30 day, Stop date: 03/19/15 9:00:00 Losartan No Notes: Memoria 02-18 (Same as: l 14:00: Cozaar) Diltiazem No Notes: Memori a 02-18 (Same as: l 14:00: Cardizem CD) Before meals. DO NOT CRUSH. Singulair Yes 0 Memoria 02-18 Refill(s) l 11:24: Doculax No 0 Memoria oral tablet 02-18 Refill(s) l 11:24: 00 diltiazem Yes 300 mg = 1 Me moria 300 mg/24 02-18 cap, PO, l hours oral 10:50: Daily, # [place] capsule, 00 30 cap, 0 extended Refill(s) release omeprazole Yes 0 Memoria 20 mg oral 02-18 Refill(s) l enteric 10:50: [place] coated 00 tablet losartan Yes 100 mg = 1 Mem oria 100 mg oral 02-18 tab, PO, l tablet 10:50: Daily, # Luis Angel 00 30 tab, 0 Refill(s) Aspirin 81 Yes 81 mg = 1 Me moria MG Chewable 02-18 tab, PO, l Tablet 10:50: Daily, [place] 00 tab, 0 Refill(s) Phenytoin No Notes: Memori a 02-18 (Same as: l 09:00: Dilantin) Do not infuse greater than 50 mg/min. Albuterol No Notes: SEE Me moria 0.417 MG/ML 02-18 RT l Inhalant 05:27: DOCUMENTAT [place] Solution 00 ION (Same as: Proventil) Acetaminoph No Notes: Raymundo issac en 02-18 (Same as: l 05:00: Tylenol Luis Angel 00 Extra Strength) Insulin No 60 units) Raymundo issac regular 02-18 Stable for l 04:01: 28 days at [place] room temperatur e Expires in days from ____Date Dextrose No Special Memori a 50% Syringe 02-18 Instructio l 04:01: ns: For [place] 00 FSBG < 40 mg/dL Tramadol No Notes: Not Mem oria 02-18 to exceed l 02:26: 400mg/day. [place] 00 (Same As: Ultram) normal No 1,000 mL, Memori a saline 0.9% 02-18 Rate: 100 l IV 1,000 mL 02:23: ml/hr, Herm Infuse over: 10 hr, Route: IV, Dosing Weight 68.182 kg, Total Volume: 1,000, Start date: 02/17/15 21:23:00, Duration: 30 day, Stop date: 03/19/15 21:22:00 Morphine No 4 mg, Memoria 02-18 Route: l 00:48: IVP, Drug form: INJ, ONCE, Dosing Weight 68.182, kg, Priority: STAT, Start date: 02/17/15 19:48:00, Stop date: 02/17/15 19:48:00 fosphenytoi No 1,100 mg, M martha n 02-18 Route: l 00:43: IVPB, Luis Angel 00 ONCE, Dosing Weight 68.182, kg, Priority: STAT, Start date: 02/17/15 19:43:00, Stop date: 02/17/15 19:43:00 Morphine No 4 mg, Memoria 3-31 Route: l 23:15: IVP, Drug form: INJ, ONCE, Dosing Weight 68.182, kg, Priority: STAT, Start date: 02/17/15 18:15:00, Stop date: 02/17/15 18:15:00 iodixanol No Notes: Memori a 3-31 (Same as: l 23:12: Visipaque) [place] 00 . Fentanyl No 50 Memoria 3-31 microgram, l 22:29: Route: [place] 00 IVP, ONCE, Dosing Weight 68.182, kg, Priority: STAT, Start date: 02/17/15 17:29:00, Stop date: 02/17/15 17:29:00 Fentanyl 2015-0 No 50 Memoria 3-31 microgram, l 22:23: Route: [place] 00 IVP, ONCE, Dosing Weight 68.182, kg, Priority: STAT, Start date: 02/17/15 17:23:00, Stop date: 02/17/15 17:23:00 Sodium 2015-0 No 1,000 mL, Memori a Chloride 3-31 1,000 l 0.154 22:05: ml/hr, [place] MEQ/ML 00 Infuse Injectable Over: 1 Solution hr, Route: IV, ONCE, Priority: STAT, Dosing Weight 68.182 kg, Start date: 02/17/15 17:05:00, Duration: 1 doses or times, Stop date: 02/17/15 17:05:00 Morphine 2015-0 No 4 mg, Memoria 3-31 Route: l 21:58: IVP, Drug Luis Angel 00 form: INJ, ONCE, Dosing Weight 68.182, kg, Priority: STAT, Start date: 02/17/15 16:58:00, Stop date: 02/17/15 16:58:00 Ondansetron 2015-0 No 4 mg, Memor ia 3-31 Route: l 21:48: IVP, Drug Luis Angel 00 form: INJ, ONCE, Dosing Weight 68.182, kg, Priority: STAT, Start date: 02/17/15 16:48:00, Stop date: 02/17/15 16:48:00 Sodium 2015-0 No 1,000 mL, Memori a Chloride 3-31 Rate: 75 l 0.154 21:48: ml/hr, [place] MEQ/ML 00 Infuse Injectable over: 13.3 Solution hr, Route: IV, Dosing Weight 68.182 kg, Total Volume: 1,000, Priority: STAT, Start date: 02/17/15 16:48:00, Duration: 1 doses or times, Stop date: 02/18/15 6:05:00 Vital Signs Vital Name Observation Time Observation Value Comments Source Systolic blood 2021-01-18 21:31:00 135 mm[Hg] [facility] of [facility] Diastolic blood 2021-01-18 21:31:00 71 mm[Hg] Unive rsity of [facility] Body height 2021-01-18 21:31:00 157.5 cm Universi ty [facility] Body weight 2021-01-18 21:31:00 63.957 kg Universi ty [facility] BMI 2021-01-18 21:31:00 25.79 kg/m2 Universi ty [facility] Systolic blood 2020-01-16 16:20:00 116 mm[Hg] Univer sity of pressure [facility] Diastolic blood 2020-01-16 16:20:00 64 mm[Hg] Unive rsity of [facility] Heart rate 2020-01-16 16:20:00 72 /min Universi ty [facility] Body weight 2020-01-16 16:20:00 63.957 kg Universi ty [facility] BMI 2020-01-16 16:20:00 26.64 kg/m2 [facility] Systolic blood 2019-06-24 21:14:00 145 mm[Hg] Univer sity of [facility] Diastolic blood 2019-06-24 21:14:00 74 mm[Hg] Unive rsity of [facility] Heart rate 2019-06-24 21:14:00 82 /min [facility] Respiratory rate 2019-06-24 21:14:00 19 /min [facility] in 2019-06-24 21:14:00 98 /min [facility] Arterial blood by [facility] Pulse oximetry Branch Systolic (mm Hg) 2019-01-30 02:06:00 Raymundo rial [place] Diastolic (mm Hg) 2019-01-30 02:06:00 Mem orial Luis Angel Respitory Rate 2019-01-30 02:06:00 Memori al [place] Angel Temperature Oral (F) 2019-01-30 02:06:00 98.0 F [facility] [place] Heart Rate 2019-01-30 02:06:00 [facility] [place] Temperature Oral (F) 2019-01-30 00:17:00 97.8 F [facility] [place] Angel Respitory Rate 2019-01-30 00:17:00 Memori al [place] Systolic (mm Hg) 2019-01-30 00:17:00 Raymundo rial [place] Diastolic (mm Hg) 2019-01-30 00:17:00 Mem orial [place] Heart Rate 2019-01-30 00:17:00 [facility] [place] Angel BMI Calculated 2019-01-29 19:30:00 Memori al [place] Weight 2019-01-29 19:30:00 [facility] [place] Heart Rate 2019-01-29 19:30:00 [facility] [place] Respitory Rate 2019-01-29 19:30:00 Memori al [place] Systolic (mm Hg) 2019-01-29 19:30:00 Raymundo rial [place] Diastolic (mm Hg) 2019-01-29 19:30:00 Mem orial [place] Temperature Oral (F) 2019-01-29 19:30:00 98.6 F [facility] [place] Angel Height 2019-01-29 19:30:00 154.94 cm [facility] [place] Heart Rate 2015-02-22 21:33:00 [facility] [place] Respitory Rate 2015-02-22 21:33:00 Memori al [place] Temperature Oral (F) 2015-02-22 21:33:00 98.0 F [facility] [place] Angel Systolic (mm Hg) 2015-02-22 21:33:00 Raymundo rial [place] Diastolic (mm Hg) 2015-02-22 21:33:00 Mem orial [place] Angel Systolic (mm Hg) 2015-02-22 17:05:00 Raymundo rial [place] Diastolic (mm Hg) 2015-02-22 17:05:00 Mem orial [place] Heart Rate 2015-02-22 17:05:00 [facility] [place] Temperature Oral (F) 2015-02-22 17:05:00 98.4 F [facility] [place] Angel Respitory Rate 2015-02-22 17:05:00 Memori al [place] Systolic (mm Hg) 2015-02-22 13:28:00 Raymundo rial [place] Angel Diastolic (mm Hg) 2015-02-22 13:28:00 Mem orial [place] Respitory Rate 2015-02-22 13:28:00 Memori al [place] Heart Rate 2015-02-22 13:28:00 [facility] [place] Temperature Oral (F) 2015-02-22 13:28:00 97.7 F [facility] [place] Angel Weight 2015-02-18 04:03:00 [facility] [place] Height 2015-02-18 04:03:00 154.94 cm [facility] [place] BMI Calculated 2015-02-18 04:03:00 Seamuskatelyn Reyes BMI Calculated 2015-02-17 21:25:00 Anne Reyes Weight 2015-02-17 21:25:00 Abner Plasencia Height 2015-02-17 21:25:00 [facility] Procedures Procedure Date / Time Performing Clinician Source Performed AVR - Aortic valve [facility] magali replacement Cholecystectomy [facility] [place] Heart procedure [facility] Tonsillectomy<sup>1</sup> Anne Reyes Plan of Care Planned Activity Planned Date Details Comments Source Future Scheduled 2023-01-19 COVID-19 VACCINE (#1) [facility] Test 09:37:53 [code = COVID-19 VACCINE (#1)] Future Scheduled 2023-01-19 SHINGLES VACCINES (1 Met [facility] Test 09:37:53 of 2) [code = SHINGLES VACCINES (1 of 2)] Future Scheduled 2023-01-19 65+ [facility]AL [facility] 09:37:53 VACCINE (1 - PCV) [code = 65+ PNEUMOCOCCAL VACCINE (1 - PCV)] Future Scheduled 2023-01-19 INFLUENZA VACCINE [facility] 09:37:53 [code = INFLUENZA VACCINE] Encounters Start End Encounter Admission Attending Care Care Encounter Source Date/Time Date/Time Type Type Clinicians Facility Department ID 2021-01-18 2021-01-18 Hospital [facility] [id number] Univers 16:00:08 23:59:00 Encounter Keeley Oliveira [facility] [id number] ity of Surgical [id number] [place] as Specialti [id number] Mi dical es [id number] [facility] 2021-01-18 2021-01-18 [facility] [id number] Univers 16:00:08 23:59:00 KEELEY miller [facility] 2021-01-18 2021-01-18 Office [facility] [id number] Univers 15:29:28 16:20:[address] [facility] [id number] it y of Surgical [id number] [place] as Specialti [id number] Mi dical es 198 [facility] 2020-01-16 2020-01-16 [facility] [id number] Univers 10:09:16 10:35:04 Visit Keeley Oliveira [facility] [id number] it y of Surgical [id number] [place] as Specialti [id number] Mi dical es 198 [facility] 2020-01-16 2020-01-16 [facility]patient [facility] [id number] Univers 10:30:00 10:30:00 KEELEY miller [facility] 2019-06-24 2019-06-24 [facility] [id number] Univers 14:54:21 16:47:19 Visit Keeley Oliveira [facility] [id number] it y of Surgical [id number] [place] as Specialti [id number] Mi dical es 198 [facility] 2019-06-24 2019-06-24 Outpatient [facility] [id number] Univers 14:45:00 16:47:19 [facility] 2019-06-18 2019-06-18 Telephone [facility] [id number] Univers 00:00:00 00:00:00 Warner Hsieh [facility] [id number] i ty [facility] [id number] Profess[place] [id number] Mi dical nal 198 [facility] 2019-01-29 2019-01-30 Emergency nullFlavo [facility] [id number] Memoria 18:51:00 02:20:00 r [place] 00 l [facility] 2019-01-29 2019-01-29 Outpatient Anup Navarro [facility] [id number] 13:51:00 21:20:00 Q 00 2015-03-12 2015-03-13 Outpt Diag nullFlavo [facility] [id number] Memoria 15:13:00 04:59:00 Services r Outpatient 00 l [facility] 2015-03-12 2015-03-12 Outpatient Malissa, [id number] 10:13:00 23:59:00 Mainor Guerrero [id number] 22 5828-03-31 2015-02-22 Inpatient Berenice [facility] [id number] [facility] 21:40[facility]00 r Luis Angel 00 l [facility] 2015-02-17 2015-02-22 Outpatient Krzysztof, [id number] 16:31:00 16:40:00 Jsaon [id number] Kaljessemomi [id number] 01 Results Test Description Test Time Test Comments Results Result Comments Source HEMATOLOGY 2019-01-29 20:01:00 Test Item Value Reference Range Interpretation Comme nts Eosinophils (test code = 6.1 See_Comment [A utomated message] The system Eosinophils) which generated this result transmitted ref erence range: <=4.0. The reference r kaylan was not used to interpret this result as normal/abnormal . [id number] 20:01:00 Test Item Value Reference Range Interpretation Comments Basophils (test code = 1.4 See_Comment [Aut omated message] The Basophils) system which ge nerated this result tra nsmitted reference range : <=1.0. The reference r kaylan was not used to int erpret this result as normal/abnormal . [facility] [id number] 20:01:00 Test Item Value Reference Range Interpretation Comments Neutrophils # (test code = Neutrophils 5.1 1.5-8.1 #) [facility] [id number] 20:01:00 Test Item Value Reference Range Interpretation Comments RDW (test code = RDW) 15.0 11.5-14.5 [facility] [id number] 20:01:00 Test Item Value Reference Range Interpretation Comments Platelet (test code = Platelet) 202 133-450 [facility] [id number] 20:01:00 Test Item Value Reference Range Interpretation Comments MCHC (test code = MCHC) 34.0 32.0-36.0 [facility] [id number] 20:01:00 Test Item Value Reference Range Interpretation Comments MPV (test code = MPV) 10.4 7.4-10.4 [facility] ClinicPostovwESYUPQSCRC4882-38-41 20:01:00 Test Item Value Reference Range Interpretation Comments Hgb (test code = Hgb) 12.1 12.0-16.0 [facility] ClinicFbzvvxxSPOBRIPZDH7142-46-00 20:01:00 Test Item Value Reference Range Interpretation Comments WBC (test code = WBC) 8.1 3.7-10.4 [facility] ClinicRxutsekRSQYSAVUPA7440-44-53 20:01:00 Test Item Value Reference Range Interpretation Comments Hct (test code = Hct) 35.6 36.0-48.0 [facility] ClinicEhgcwrdKGTCHBGCCK7481-14-11 20:01:00 Test Item Value Reference Range Interpretation Comments RBC (test code = RBC) 4.20 4.20-5.40 [facility] ClinicDphfxceVZUVVDKGAA3192-11-06 20:01:00 Test Item Value Reference Range Interpretation Comments MCH (test code = MCH) 28.9 pg 27.0-31.0 [facility] ClinicCneoejgTBPPTALOSL7589-12-13 20:01:00 Test Item Value Reference Range Interpretation Comments MCV (test code = MCV) 84.9 80.0-98.0 [facility]2019-03-12 20:01:00 Test Item Value Reference Range Interpretation Comments UA RBC (test code = no gt See_Comment [Automa mimi message] The UA RBC) system which ge nerated this result transmit mimi reference range : <=2. The reference range was not used to interpr et this result as elizabeth l/abnormal. [facility] AND [id number] 20:01:00 Test Item Value Reference Range Interpretation Comments UA WBC (test code = no gt See_Comment [Automa mimi message] The UA WBC) system which ge nerated this result transmit mimi reference range : <=5. The reference range was not used to interpr et this result as elizabeth l/abnormal. [facility]2019-03-12 20:01:00 Test Item Value Reference Range Interpretation Comments UA Sq Epi (test code = UA Sq Occasional /LPF Epi) [facility]2019-03-12 20:01:00 Test Item Value Reference Range Interpretation Comments UA Leuk Est (test Negative (01/29/19 3:01 code = UA Leuk Est) PM) [facility] AND [id number] 20:01:00 Test Item Value Reference Range Interpretation Comments UA Blood (test code = Negative (01/29/19 3:01 UA Blood) PM) [facility] AND [id number] 20:01:00 Test Item Value Reference Range Interpretation Comments UA Bili (test code = Negative *NA*(01/29/19 UA Bili) 3:01 PM) [facility] AND [id number] 20:01:00 Test Item Value Reference Range Interpretation Comments UA Nitrite (test code Negative (01/29/19 3:01 = UA Nitrite) PM) [facility] AND [id number] 20:01:00 Test Item Value Reference Range Interpretation Comments UA Urobilinogen (test code = UA <=1.0 mg/dL 0.1-1.0 Urobilinogen) [facility] AND [id number] 20:01:00 Test Item Value Reference Range Interpretation Comments UA Ketones (test code Negative *NA*(01/29/19 = UA Ketones) 3:01 PM) [facility] AND [id number] 20:01:00 Test Item Value Reference Range Interpretation Comments UA Glucose (test code Negative *NA*(01/29/19 = UA Glucose) 3:01 PM) [facility] AND [id number] 20:01:00 Test Item Value Reference Range Interpretation Comments UA pH (test code = UA pH) 6.0 1 5.0-8.0 [facility] AND [id number] 20:01:00 Test Item Value Reference Range Interpretation Comments UA Protein (test code Negative (01/29/19 3:01 = UA Protein) PM) [facility] AND [id number] 20:01:00 Test Item Value Reference Range Interpretation Comments UA Spec Grav (test code = UA Spec 1.006 1 Grav) [facility] AND [id number] 20:01:00 Test Item Value Reference Range Interpretation Comments UA Turbidity (test code = Clear (01/29/19 3:01 UA Turbidity) PM) [facility] AND [id number] 20:01:00 Test Item Value Reference Range Interpretation Comments UA Color (test code = UA Color) [facility] [id number] 20:01:00 Test Item Value Reference Range Interpretation Comments Troponin-I (test code no gt See_Comment [Auto mated message] The = Troponin-I) system which g enerated this result transmit mimi reference range : <=0.40. The reference r kaylan was not used to interpr et this result as elizabeth l/abnormal. [facility] [id number] 20:01:00 Test Item Value Reference Range Interpretation Comments Lipase Lvl (test code = Lipase Lvl) 71 73-393 [facility] [id number] 20:01:00 Test Item Value Reference Range Interpretation Comments eGFR (test code = eGFR) 66 [facility]2019-03-12 20:01:00 Test Item Value Reference Range Interpretation Comments Bili Total (test code = Bili Total) 0.4 0.2-1.3 [facility] [id number] 20:01:00 Test Item Value Reference Range Interpretation Comments CO2 (test code = CO2) 28 24-32 [facility] [id number] 20:01:00 Test Item Value Reference Range Interpretation Comments Alk Phos (test code = Alk Phos) 82 39-136 [facility] [id number] 20:01:00 Test Item Value Reference Range Interpretation Comments Albumin Lvl (test code = Albumin Lvl) 3.6 3.5-5.0 [facility] [id number] 20:01:00 Test Item Value Reference Range Interpretation Comments Chloride Lvl (test code = Chloride Lvl) 103 95-109 [facility] [id number] 20:01:00 Test Item Value Reference Range Interpretation Comments Total Protein (test code = Total 7.7 6.4-8.4 Protein) [facility] [id number] 20:01:00 Test Item Value Reference Range Interpretation Comments Glucose Lvl (test code = Glucose Lvl) 98 70-99 [facility] [id number] 20:01:00 Test Item Value Reference Range Interpretation Comments Calcium Lvl (test code = Calcium Lvl) 8.8 8.5-10.5 [facility] [id number] 20:01:00 Test Item Value Reference Range Interpretation Comments Sodium Lvl (test code = Sodium Lvl) 136 135-145 [facility]2019-03-12 20:01:00 Test Item Value Reference Range Interpretation Comments Potassium Lvl (test code = Potassium 3.8 3.5-5.1 Lvl) [facility]2019-03-12 20:01:00 Test Item Value Reference Range Interpretation Comments AST (test code = AST) 15 See_Comment [Auto mated message] The system which ge nerated this result transmit mimi reference range : <=37. The reference range was not used to interpr et this result as elizabeth l/abnormal. [facility]2019-03-12 20:01:00 Test Item Value Reference Range Interpretation Comments ALT (test code = ALT) 22 See_Comment [Auto mated message] The system which ge nerated this result transmit mimi reference range : <=65. The reference range was not used to interpr et this result as elizabeth l/abnormal. [facility]2019-03-12 20:01:00 Test Item Value Reference Range Interpretation Comments Creatinine Lvl (test code = Creatinine 0.83 0.50-1.40 Lvl) [facility]2019-03-12 20:01:00 Test Item Value Reference Range Interpretation Comments BUN (test code = BUN) 14 7-22 [facility]2019-03-12 20:01:00 Test Item Value Reference Range Interpretation Comments B/C Ratio (test code = B/C Ratio) 17 1 6-25 [facility]2019-03-12 20:01:00 Test Item Value Reference Range Interpretation Comments Globulin (test code = Globulin) 4.1 2.7-4.2 [facility]2019-03-12 20:01:00 Test Item Value Reference Range Interpretation Comments A/G Ratio (test code = A/G Ratio) 0.9 1 0.7-1.6 [facility]2019-03-12 20:01:00 Test Item Value Reference Range Interpretation Comments AGAP (test code = AGAP) 8.8 10.0-20.0 [facility] ClinicYfqtgapDVESRXCDZB7951-96-24 20:01:00 Test Item Value Reference Range Interpretation Comments Monocytes # (test code 0.7 See_Comment [Aut omated message] The = Monocytes #) system which generated this result tra nsmitted reference range : <=0.8. The reference r kaylan was not used to int erpret this result as normal/abnormal . [facility] ClinicJciyusdSFQSEYVTAP7598-05-05 20:01:00 Test Item Value Reference Range Interpretation Comments Eosinophils # (test code 0.5 See_Comment [A utomated message] The = Eosinophils #) system whic h generated this result tra nsmitted reference range : <=0.5. The reference r kaylan was not used to int erpret this result as normal/abnormal . [facility] ClinicIkqeghbMCRTIIGPVF7896-83-09 20:01:00 Test Item Value Reference Range Interpretation Comments Basophils # (test code 0.1 See_Comment [Aut omated message] The = Basophils #) system which generated this result tra nsmitted reference range : <=0.2. The reference r kaylan was not used to int erpret this result as normal/abnormal . [facility] ClinicHvjrrmoCSNEZNOUHY1762-26-98 20:01:00 Test Item Value Reference Range Interpretation Comments Segs (test code = Segs) 62.8 45.0-75.0 [facility] ClinicXdgegmgBMYMPXFCFS5097-97-49 20:01:00 Test Item Value Reference Range Interpretation Comments Lymphocytes (test code = Lymphocytes) 20.7 20.0-40.0 [facility] ClinicBzqohbmLYBLASMTVO3033-25-53 20:01:00 Test Item Value Reference Range Interpretation Comments Lymphocytes # (test code = Lymphocytes 1.7 1.0-5.5 #) [facility] ClinicMnqpvwpJOWHTSBVDD5573-42-11 20:01:00 Test Item Value Reference Range Interpretation Comments Monocytes (test code = Monocytes) 9.0 2.0-12.0 [facility]2015-04-05 09:26:00 Test Item Value Reference Range Interpretation Comments Phosphorus (test code = Phosphorus) 3.9 2.5-4.5 [facility]2015-04-05 09:26:00 Test Item Value Reference Range Interpretation Comments Magnesium Lvl (test code = Magnesium 1.8 1.8-2.4 Lvl) [facility]2015-04-05 09:26:00 Test Item Value Reference Range Interpretation Comments eGFR (test code = eGFR) 83 [facility]2015-04-05 09:26:00 Test Item Value Reference Range Interpretation Comments Calcium Lvl (test code = Calcium Lvl) 8.8 8.5-10.5 [facility]2015-04-05 09:26:00 Test Item Value Reference Range Interpretation Comments CO2 (test code = CO2) 27 24-32 [facility]2015-04-05 09:26:00 Test Item Value Reference Range Interpretation Comments AGAP (test code = AGAP) 12.1 10.0-20.0 [facility]2015-04-05 09:26:00 Test Item Value Reference Range Interpretation Comments Chloride Lvl (test code = Chloride Lvl) 104 95-109 [facility]2015-04-05 09:26:00 Test Item Value Reference Range Interpretation Comments BUN (test code = BUN) 10 7-22 [place] [id number] 09:26:00 Test Item Value Reference Range Interpretation Comments Glucose Lvl (test code = Glucose Lvl) 125 70-99 [facility]2015-04-05 09:26:00 Test Item Value Reference Range Interpretation Comments Potassium Lvl (test code = Potassium 3.1 3.5-5.1 Lvl) [facility]2015-04-05 09:26:00 Test Item Value Reference Range Interpretation Comments Creatinine Lvl (test code = Creatinine 0.7 0.5-1.4 Lvl) [facility]2015-04-05 09:26:00 Test Item Value Reference Range Interpretation Comments Sodium Lvl (test code = Sodium Lvl) 140 135-145 [facility] ClinicCkijgpyPSBGJLACIK3301-28-19 09:26:00 Test Item Value Reference Range Interpretation Comments MCV (test code = MCV) 83.6 80.0-98.0 [facility] ClinicPagijhnJAORAJGOOP7746-75-40 09:26:00 Test Item Value Reference Range Interpretation Comments RDW (test code = RDW) 15.7 11.5-14.5 [facility] ClinicIqigqekQPSGEKUDHT5243-61-30 09:26:00 Test Item Value Reference Range Interpretation Comments MCHC (test code = MCHC) 33.4 32.0-36.0 [facility] ClinicOnveevzIUGNFVOICZ7166-23-51 09:26:00 Test Item Value Reference Range Interpretation Comments Hct (test code = Hct) 26.4 36.0-48.0 [facility] ClinicYgvsjvxVFFUMTITUZ2476-15-38 09:26:00 Test Item Value Reference Range Interpretation Comments MCH (test code = MCH) 27.9 pg 27.0-31.0 [facility] ClinicTwrrnwvGNFMACJXRS7705-28-43 09:26:00 Test Item Value Reference Range Interpretation Comments MPV (test code = MPV) 9.2 7.4-10.4 [facility] ClinicOgdjazuTWQMIRDOPM5716-93-29 09:26:00 Test Item Value Reference Range Interpretation Comments Platelet (test code = Platelet) 331 133-450 [facility] ClinicOgqjmdrVPAUJBVCQS8440-07-16 09:26:00 Test Item Value Reference Range Interpretation Comments WBC (test code = WBC) 8.6 3.7-10.4 [facility] ClinicKrngzcaVZMNMMALUB0116-09-86 09:26:00 Test Item Value Reference Range Interpretation Comments Hgb (test code = Hgb) 8.8 12.0-16.0 [facility] ClinicGljvphpMMHNYHBGPO0486-26-14 09:26:00 Test Item Value Reference Range Interpretation Comments RBC (test code = RBC) 3.15 4.20-5.40 [facility] ClinicDmflixrMOBNQCMICL1857-72-49 09:26:00 Test Item Value Reference Range Interpretation Comments Segs (test code = Segs) 66.8 45.0-75.0 [facility] ClinicQtbzjdcAHLMQJGHOP9261-26-06 09:26:00 Test Item Value Reference Range Interpretation Comments Lymphocytes (test code = Lymphocytes) 19.0 20.0-40.0 [facility] ClinicTxnqhagLSCYVHNZJW6077-48-31 09:26:00 Test Item Value Reference Range Interpretation Comments Basophils (test code = 1.5 See_Comment [Aut omated message] The Basophils) system which ge nerated this result tra nsmitted reference range : <=1.0. The reference r kaylan was not used to int erpret this result as normal/abnormal . [facility] ClinicDllccuiTAQANGJONY0193-33-58 09:26:00 Test Item Value Reference Range Interpretation Comments Eosinophils (test code = 2.0 See_Comment [A utomated message] The Eosinophils) system which ge nerated this result tra nsmitted reference range : <=4.0. The reference r kaylan was not used to int erpret this result as normal/abnormal . [facility] ClinicVbdlmooZTWMLRTYKM3807-50-19 09:26:00 Test Item Value Reference Range Interpretation Comments Monocytes (test code = Monocytes) 10.7 2.0-12.0 [facility] ClinicYufyxdlRCYWSNYVKT9601-57-36 09:26:00 Test Item Value Reference Range Interpretation Comments Lymphocytes # (test code = Lymphocytes 1.6 1.0-5.5 #) [facility] ClinicZvavijrKPMFVKWRJM5439-93-66 09:26:00 Test Item Value Reference Range Interpretation Comments Segs-Bands # (test code = Segs-Bands #) 5.7 1.5-8.1 [facility] ClinicBkfppdcFQQCKLQUAB2391-92-46 09:26:00 Test Item Value Reference Range Interpretation Comments Basophils # (test code 0.1 See_Comment [Aut omated message] The = Basophils #) system which generated this result tra nsmitted reference range : <=0.2. The reference r kaylan was not used to int erpret this result as normal/abnormal . [facility] ClinicTxusvdvYHPMTHJKQH2967-17-64 09:26:00 Test Item Value Reference Range Interpretation Comments Eosinophils # (test code 0.2 See_Comment [A utomated message] The = Eosinophils #) system whic h generated this result tra nsmitted reference range : <=0.5. The reference r kaylan was not used to int erpret this result as normal/abnormal . [facility] ClinicJnjgpyeABLMHEXPUM7943-53-08 09:26:00 Test Item Value Reference Range Interpretation Comments Monocytes # (test code 0.9 See_Comment [Aut omated message] The = Monocytes #) system which generated this result tra nsmitted reference range : <=0.8. The reference r kaylan was not used to int erpret this result as normal/abnormal . [facility] ClinicXxdvjppPIQECRDXCQ3176-53-03 09:26:00 Test Item Value Reference Range Interpretation Comments Hypochrom (test code = 1+ (02/22/15 4:26 AM) Hypochrom) [facility] ClinicSnyilaiKRHNZXBTYR7599-31-65 09:26:00 Test Item Value Reference Range Interpretation Comments Anisocyte (test code = 1+ *ABN*(02/22/15 4:26 Anisocyte) AM) [facility] ClinicJovdxleCTEGEMIJHY1304-73-41 09:26:00 Test Item Value Reference Range Interpretation Comments Large Plt (test code Moderate *ABN*(4/5/15 = Large Plt) 4:26 AM) [facility] WUYICZW1165-39-01 09:26:00 Test Item Value Reference Range Interpretation Comments Ca Norm WB (test code = Ca Norm WB) 0.98 1.05-1.25 [facility] EVREJXQ3315-02-97 09:26:00 Test Item Value Reference Range Interpretation Comments Ca Ion WB (test code = Ca Ion WB) 0.91 1.05-1.25 [facility]2015-04-04 10:05:00 Test Item Value Reference Range Interpretation Comments Magnesium Lvl (test code = Magnesium 1.9 1.8-2.4 Lvl) [facility]2015-04-04 10:05:00 Test Item Value Reference Range Interpretation Comments Phosphorus (test code = Phosphorus) 3.2 2.5-4.5 [facility]2015-04-04 10:05:00 Test Item Value Reference Range Interpretation Comments eGFR (test code = eGFR) 92 [facility]2015-04-04 10:05:00 Test Item Value Reference Range Interpretation Comments Calcium Lvl (test code = Calcium Lvl) 8.8 8.5-10.5 [facility]2015-04-04 10:05:00 Test Item Value Reference Range Interpretation Comments Creatinine Lvl (test code = Creatinine 0.5 0.5-1.4 Lvl) [facility]2015-04-04 10:05:00 Test Item Value Reference Range Interpretation Comments BUN (test code = BUN) 10 7-22 [facility]2015-04-04 10:05:00 Test Item Value Reference Range Interpretation Comments Sodium Lvl (test code = Sodium Lvl) 137 135-145 [facility]2015-04-04 10:05:00 Test Item Value Reference Range Interpretation Comments Potassium Lvl (test code = Potassium 4.1 3.5-5.1 Lvl) [facility]2015-04-04 10:05:00 Test Item Value Reference Range Interpretation Comments Glucose Lvl (test code = Glucose Lvl) 97 70-99 [facility]2015-04-04 10:05:00 Test Item Value Reference Range Interpretation Comments Chloride Lvl (test code = Chloride Lvl) 103 95-109 [facility]2015-04-04 10:05:00 Test Item Value Reference Range Interpretation Comments CO2 (test code = CO2) 25 24-32 [facility]2015-04-04 10:05:00 Test Item Value Reference Range Interpretation Comments AGAP (test code = AGAP) 13.1 10.0-20.0 [facility] ClinicMaedtozIPXPNUOAPL4222-33-87 10:05:00 Test Item Value Reference Range Interpretation Comments Eosinophils (test code = 3.1 See_Comment [A utomated message] The Eosinophils) system which ge nerated this result tra nsmitted reference range : <=4.0. The reference r kaylan was not used to int erpret this result as normal/abnormal . [facility] ClinicEkspllwOMOWIFVQDM5788-12-21 10:05:00 Test Item Value Reference Range Interpretation Comments Basophils (test code = 1.5 See_Comment [Aut omated message] The Basophils) system which ge nerated this result tra nsmitted reference range : <=1.0. The reference r kaylan was not used to int erpret this result as normal/abnormal . [facility] ClinicBleiravVWWGSFWAEE9001-64-68 10:05:00 Test Item Value Reference Range Interpretation Comments Segs-Bands # (test code = Segs-Bands #) 5.0 1.5-8.1 [facility] ClinicOfemdcgMUUOOQNUGX8894-34-08 10:05:00 Test Item Value Reference Range Interpretation Comments Lymphocytes # (test code = Lymphocytes 1.6 1.0-5.5 #) [facility] ClinicBngsdzaCWZMUXPPFR7258-65-84 10:05:00 Test Item Value Reference Range Interpretation Comments Monocytes # (test code 0.8 See_Comment [Aut omated message] The = Monocytes #) system which generated this result tra nsmitted reference range : <=0.8. The reference r kaylan was not used to int erpret this result as normal/abnormal . [facility] ClinicZkbesmpJSYPNSNMXM4408-52-38 10:05:00 Test Item Value Reference Range Interpretation Comments Eosinophils # (test code 0.2 See_Comment [A utomated message] The = Eosinophils #) system whic h generated this result tra nsmitted reference range : <=0.5. The reference r kaylan was not used to int erpret this result as normal/abnormal . [facility] ClinicDhvmexwAPSCAHMAGY5360-73-59 10:05:00 Test Item Value Reference Range Interpretation Comments RBC Morph (test code = Normal (02/21/15 5:05 AM) RBC Morph) [facility] ClinicFbwalncXRMDKWFTUR2517-11-59 10:05:00 Test Item Value Reference Range Interpretation Comments Plt Morph (test code = Normal (02/21/15 5:05 AM) Plt Morph) [facility] ClinicKbssnbcEYJRNBJEYH8242-39-67 10:05:00 Test Item Value Reference Range Interpretation Comments Segs (test code = Segs) 64.1 45.0-75.0 [facility] ClinicKsmpmvvTKRAFJLDUI2145-45-40 10:05:00 Test Item Value Reference Range Interpretation Comments Lymphocytes (test code = Lymphocytes) 21.3 20.0-40.0 [facility] ClinicZbusqfsHQJAWEHEBW5356-92-34 10:05:00 Test Item Value Reference Range Interpretation Comments Monocytes (test code = Monocytes) 10.0 2.0-12.0 [facility] ClinicZrhxtkqEITCKEGYDK2106-21-51 10:05:00 Test Item Value Reference Range Interpretation Comments Basophils # (test code 0.1 See_Comment [Aut omated message] The = Basophils #) system which generated this result tra nsmitted reference range : <=0.2. The reference r kaylan was not used to int erpret this result as normal/abnormal . [facility] ClinicUmkhmytRMDSJBHNQO9195-37-46 10:05:00 Test Item Value Reference Range Interpretation Comments WBC (test code = WBC) 7.7 3.7-10.4 [facility] ClinicWhxihuoBFUJSRYVYP7343-32-54 10:05:00 Test Item Value Reference Range Interpretation Comments RBC (test code = RBC) 3.65 4.20-5.40 [facility] ClinicUomrgzlYSKNNLATOF4482-65-04 10:05:00 Test Item Value Reference Range Interpretation Comments MPV (test code = MPV) 9.5 7.4-10.4 [facility] ClinicEstjorlZARSRIAVVJ3545-95-52 10:05:00 Test Item Value Reference Range Interpretation Comments RDW (test code = RDW) 15.7 11.5-14.5 [facility] ClinicXzqmdyjCMRRFGTLDH4221-27-82 10:05:00 Test Item Value Reference Range Interpretation Comments Platelet (test code = Platelet) 353 133-450 [facility] ClinicHvvshkuLWOHNGDJYF1365-61-87 10:05:00 Test Item Value Reference Range Interpretation Comments Hgb (test code = Hgb) 10.1 12.0-16.0 [facility]VESFKDTVO[facility]78-[facility]-04 10:05:00 Test Item Value Reference Range Interpretation Comments MCH (test code = MCH) 27.6 pg 27.0-31.0 [facility] ClinicVaopvzeYOJMSTUTNF0576-77-01 10:05:00 Test Item Value Reference Range Interpretation Comments MCHC (test code = MCHC) 32.8 32.0-36.0 [facility] ClinicFwhznmkLXZUDFOUJR4543-55-32 10:05:00 Test Item Value Reference Range Interpretation Comments Hct (test code = Hct) 30.7 36.0-48.0 [facility] ClinicDxpozeuDXCNRLCRMT5301-84-77 10:05:00 Test Item Value Reference Range Interpretation Comments MCV (test code = MCV) 84.0 80.0-98.0 [facility] IFJSGNE5444-06-84 10:05:00 Test Item Value Reference Range Interpretation Comments Ca Ion WB (test code = Ca Ion WB) 1.03 1.05-1.25 [facility] BPXHVVX1073-39-73 10:05:00 Test Item Value Reference Range Interpretation Comments Ca Norm WB (test code = Ca Norm WB) 1.06 1.05-1.25 [facility] ClinicYaqwffeSBHIYDLLSQ0632-07-40 14:40:00 Test Item Value Reference Range Interpretation Comments Anti-Xa Low Molecular Heparin (test 0.33 code = Anti-Xa Low Molecular Heparin) [facility]2015-04-02 08:17:00 Test Item Value Reference Range Interpretation Comments Phosphorus (test code = Phosphorus) 2.7 2.5-4.5 [facility] ZWRWQ5422-47-53 08:17:00 Test Item Value Reference Range Interpretation Comments Magnesium Lvl (test code = Magnesium 1.9 1.8-2.4 Lvl) [place] [place] HospitalZpmvgndPQTLZLVFBCLK1286-30-65 08:17:00 Test Item Value Reference Range Interpretation Comments AGAP (test code = AGAP) 10.1 10.0-20.0 [facility]AsrxefdTCCUZOJEMAXP4912-97-41 08:17:00 Test Item Value Reference Range Interpretation Comments eGFR (test code = eGFR) 92 [facility]KluztpmFVGHSNBIMVRY6541-43-85 08:17:00 Test Item Value Reference Range Interpretation Comments Glucose Lvl (test code = Glucose Lvl) 111 70-99 [facility] HospitalRknncbuHWJQBYRTZPAP2598-90-05 08:17:00 Test Item Value Reference Range Interpretation Comments Chloride Lvl (test code = Chloride Lvl) 105 95-109 [facility] HospitalRuzdrmoKKYJUZHSQTKX0178-95-15 08:17:00 Test Item Value Reference Range Interpretation Comments Calcium Lvl (test code = Calcium Lvl) 8.2 8.5-10.5 [facility] HospitalOrlynblVZFRWNBAJFES0042-27-54 08:17:00 Test Item Value Reference Range Interpretation Comments BUN (test code = BUN) 10 7-22 [facility] HospitalVxdwxknCIJCMUXRVKDI3031-18-56 08:17:00 Test Item Value Reference Range Interpretation Comments Creatinine Lvl (test code = Creatinine 0.5 0.5-1.4 Lvl) [facility] HospitalBsamjaeNRMIDLKQAGDX3310-39-14 08:17:00 Test Item Value Reference Range Interpretation Comments Potassium Lvl (test code = Potassium 4.1 3.5-5.1 Lvl) [facility] HospitalNrpmbduLWSKCKCLMSDA7656-76-88 08:17:00 Test Item Value Reference Range Interpretation Comments Sodium Lvl (test code = Sodium Lvl) 138 135-145 [facility] HospitalQqchnbcQZNCUYUKPKKY7301-62-60 08:17:00 Test Item Value Reference Range Interpretation Comments CO2 (test code = CO2) 27 24-32 [facility] ClinicQdaowsuDYRYSUQQLH6398-53-38 08:17:00 Test Item Value Reference Range Interpretation Comments Segs-Bands # (test code = Segs-Bands #) 4.2 1.5-8.1 [facility] ClinicXfamoikFPSHKNQTIQ0493-21-37 08:17:00 Test Item Value Reference Range Interpretation Comments Lymphocytes # (test code = Lymphocytes 1.5 1.0-5.5 #) [facility] ClinicMobitqtFNKPSFMKDL6883-19-55 08:17:00 Test Item Value Reference Range Interpretation Comments Monocytes # (test code 0.7 See_Comment [Aut omated message] The = Monocytes #) system which generated this result tra nsmitted reference range : <=0.8. The reference r kaylan was not used to int erpret this result as normal/abnormal . [facility] ClinicZpwqchyEMBEDPREWG5443-25-43 08:17:00 Test Item Value Reference Range Interpretation Comments Monocytes (test code = Monocytes) 10.4 2.0-12.0 [facility] ClinicQkunkiiNPAQFGSAML6935-46-40 08:17:00 Test Item Value Reference Range Interpretation Comments Segs (test code = Segs) 61.7 45.0-75.0 [facility] ClinicEfxonqhDUHQZJANLX8329-01-03 08:17:00 Test Item Value Reference Range Interpretation Comments Lymphocytes (test code = Lymphocytes) 22.2 20.0-40.0 [facility] ClinicXwgpalwJVCXWEUSEQ6704-73-94 08:17:00 Test Item Value Reference Range Interpretation Comments Eosinophils (test code = 4.4 See_Comment [A utomated message] The Eosinophils) system which ge nerated this result tra nsmitted reference range : <=4.0. The reference r kaylan was not used to int erpret this result as normal/abnormal . [facility] ClinicQlbgfktRSELQLYNRU0988-68-61 08:17:00 Test Item Value Reference Range Interpretation Comments Basophils (test code = 1.3 See_Comment [Aut omated message] The Basophils) system which ge nerated this result tra nsmitted reference range : <=1.0. The reference r kaylan was not used to int erpret this result as normal/abnormal . [facility] ClinicAutlwcfCCURECKIVZ7924-45-83 08:17:00 Test Item Value Reference Range Interpretation Comments Basophils # (test code 0.1 See_Comment [Aut omated message] The = Basophils #) system which generated this result tra nsmitted reference range : <=0.2. The reference r kaylan was not used to int erpret this result as normal/abnormal . [facility] ClinicMtjtzhoGCLKNUJLGB1774-02-70 08:17:00 Test Item Value Reference Range Interpretation Comments Eosinophils # (test code 0.3 See_Comment [A utomated message] The = Eosinophils #) system whic h generated this result tra nsmitted reference range : <=0.5. The reference r kaylan was not used to int erpret this result as normal/abnormal . [facility] ClinicTulkcbmCSXHHPOOAY7363-08-94 08:17:00 Test Item Value Reference Range Interpretation Comments RDW (test code = RDW) 15.2 11.5-14.5 [facility] ClinicFzxfuajYQXJVYCDJS5047-05-40 08:17:00 Test Item Value Reference Range Interpretation Comments Platelet (test code = Platelet) 309 133-450 [facility] ClinicJeovitgYWEYABHVCO9448-12-87 08:17:00 Test Item Value Reference Range Interpretation Comments MPV (test code = MPV) 9.5 7.4-10.4 [facility] ClinicNijojwtBIHYQBAOUS5096-13-61 08:17:00 Test Item Value Reference Range Interpretation Comments MCHC (test code = MCHC) 32.9 32.0-36.0 [facility] ClinicOhtqihxXCNNWBAIWJ3804-97-14 08:17:00 Test Item Value Reference Range Interpretation Comments MCH (test code = MCH) 27.5 pg 27.0-31.0 [facility] ClinicBifefixRECAHSKLFS4741-08-76 08:17:00 Test Item Value Reference Range Interpretation Comments WBC (test code = WBC) 6.7 3.7-10.4 [facility] ClinicHkchvbiUBLUHRGGLH5178-43-79 08:17:00 Test Item Value Reference Range Interpretation Comments RBC (test code = RBC) 3.12 4.20-5.40 [facility] ClinicLpnmazqEMEAHABZQS8840-78-01 08:17:00 Test Item Value Reference Range Interpretation Comments MCV (test code = MCV) 83.7 80.0-98.0 [facility] ClinicGfxinlzGMXVXLLDZO5016-81-74 08:17:00 Test Item Value Reference Range Interpretation Comments Hct (test code = Hct) 26.1 36.0-48.0 [facility] ClinicZguaqltVQCOWZTQQA3688-50-11 08:17:00 Test Item Value Reference Range Interpretation Comments Hgb (test code = Hgb) 8.6 12.0-16.0 [facility] ClinicPgiltexZBJMIFZJWB8408-74-96 08:17:00 Test Item Value Reference Range Interpretation Comments ACT (TEG) (test code = ACT (TEG)) 97 s 86-118 [facility] ClinicDuvxjigGDODQMUIDM6677-01-83 08:17:00 Test Item Value Reference Range Interpretation Comments K-time (test code = K-time) 0.8 min 0.6-2.3 [facility] ClinicJitbhkuJUOCYLCMAC6150-01-35 08:17:00 Test Item Value Reference Range Interpretation Comments G-value (test code = G-value) 15.6 5.0-11.6 [facility] ClinicRjhpuqbPCDLPWLXGK6536-64-37 08:17:00 Test Item Value Reference Range Interpretation Comments Angle (test code = Angle) 82 degrees 64-80 [facility] ClinicWphvgokYTPKVQNRKB0346-66-01 08:17:00 Test Item Value Reference Range Interpretation Comments Max Amp (test code = Max Amp) 76 mm 52-71 [facility] ClinicGcdkybtPPBHWMMRVI5630-67-29 08:17:00 Test Item Value Reference Range Interpretation Comments R-time (test code = R-time) 0.5 min 0.4-0.7 [facility] ClinicCrqjijrLOJXMRLCRY5289-56-09 08:17:00 Test Item Value Reference Range Interpretation Comments Split Point (test code = Split Point) 0.4 min [facility] ClinicYkjhsmqSLNKZCZPPA6592-80-83 08:17:00 Test Item Value Reference Range Interpretation Comments Rapid TEG Sample Type Citrated Whole Blood (test code = Rapid TEG Sample Type) [facility] ClinicMxdeajyNRJEWMAWZH8347-01-83 08:17:00 Test Item Value Reference Range Interpretation Comments Estimated % Lysis (test 0.2 See_Comment [Au tomated message] The code = Estimated % system wh ich generated Lysis) this result tra nsmitted reference range : <=7.5. The reference r kaylan was not used to int erpret this result as normal/abnormal . [facility]ATHY[facility] UVCTSEB1052-14-62 09:03:00 Test Item Value Reference Range Interpretation Comments Ca Norm WB (test code = Ca Norm WB) 1.04 1.05-1.25 [facility] EYHOUGP2683-79-67 09:03:00 Test Item Value Reference Range Interpretation Comments Ca Ion WB (test code = Ca Ion WB) 1.06 1.05-1.25 [facility] - YJRBMSRM6056-74-95 04:14:00 Test Item Value Reference Range Interpretation Comments MRSA by PCR (test Negative 11(02/17/15 code = MRSA by PCR) 11:14 PM) [facility]NeogsylVEOVODWIMI9184-96-31 04:14:00 Test Item Value Reference Range Interpretation Comments Estimated % Lysis (test 0.0 See_Comment [Au tomated message] The code = Estimated % system wh ich generated Lysis) this result tra nsmitted reference range : <=7.5. The reference r kaylan was not used to int erpret this result as normal/abnormal . [facility] ClinicZpfmhgrGIJXTYSOYC8781-61-91 04:14:00 Test Item Value Reference Range Interpretation Comments G-value (test code = G-value) 19.0 5.0-11.6 [facility] ClinicWupomogYVXXFYQDFI2967-41-04 04:14:00 Test Item Value Reference Range Interpretation Comments K-time (test code = K-time) 0.8 min 0.6-2.3 [facility] ClinicEwpjxvcAOQYRNRKGV4773-96-20 04:14:00 Test Item Value Reference Range Interpretation Comments Split Point (test code = Split Point) 0.5 min [place] 476605-04-01 04:14:00 Test Item Value Reference Range Interpretation Comments R-time (test code = R-time) 0.5 min 0.4-0.7 [facility] ClinicDytxhkpVOZYBNVJMG2639-26-80 04:14:00 Test Item Value Reference Range Interpretation Comments ACT (TEG) (test code = ACT (TEG)) 97 s 86-118 [facility] ClinicWfmenyfUMGMZDYKUB3682-37-82 04:14:00 Test Item Value Reference Range Interpretation Comments Rapid TEG Sample Type Citrated Whole Blood (test code = Rapid TEG Sample Type) [facility] ClinicMdzajuwMCFDQQOTSS2171-92-69 04:14:00 Test Item Value Reference Range Interpretation Comments Max Amp (test code = Max Amp) 79 mm 52-71 [facility] ClinicEwzsjzzEDHHSKNPWG1979-15-82 04:14:00 Test Item Value Reference Range Interpretation Comments Angle (test code = Angle) 83 degrees 64-80 [facility]2015-04-01 00:41:00 Test Item Value Reference Range Interpretation Comments Lactic Acid Lvl (test code = Lactic 0.7 0.5-2.2 Acid Lvl) [facility] ClinicWvlpzaxZIRSTKIBKG1133-73-68 00:26:00 Test Item Value Reference Range Interpretation Comments Max Amp (test code = Max Amp) 73 mm 52-71 [facility] ClinicOdzeyuvANIUXLUAPR1861-47-43 00:26:00 Test Item Value Reference Range Interpretation Comments G-value (test code = G-value) 13.6 5.0-11.6 [facility] ClinicFxprporXKDIWTBBYR3526-29-84 00:26:00 Test Item Value Reference Range Interpretation Comments K-time (test code = K-time) 0.8 min 0.6-2.3 [facility] ClinicBcixrkkCINJIFTRBQ7501-33-50 00:26:00 Test Item Value Reference Range Interpretation Comments ACT (TEG) (test code = ACT (TEG)) 113 s 86-118 [facility] HealthUocghfiCMAHTZRLUJ1012-83-55 00:26:00 Test Item Value Reference Range Interpretation Comments Split Point (test code = Split Point) 0.6 min [facility] HealthTlypciaGPHTEXMMBC4494-40-88 00:26:00 Test Item Value Reference Range Interpretation Comments Angle (test code = Angle) 83 degrees 64-80 [facility] HealthNunjbdoOLLZDSGXFG3164-31-63 00:26:00 Test Item Value Reference Range Interpretation Comments R-time (test code = R-time) 0.7 min 0.4-0.7 [facility] ClinicIbtoeclFFKGPRHJEE4092-67-89 00:26:00 Test Item Value Reference Range Interpretation Comments Rapid TEG Sample Type Citrated Whole Blood (test code = Rapid TEG Sample Type) [facility] ClinicZjojgegADUHQSURAN2124-58-48 00:26:00 Test Item Value Reference Range Interpretation Comments Estimated % Lysis (test 3.4 See_Comment [Au tomated message] The code = Estimated % system wh ich generated Lysis) this result tra nsmitted reference range : <=7.5. The reference r kaylan was not used to int erpret this result as normal/abnormal . [facility] IMSOYCZ2975-36-24 23:50:00 Test Item Value Reference Range Interpretation Comments Platelet product (test Product available code = Platelet (02/17/15 6:50 PM) product) [facility] [id number] 21:54:00 Test Item Value Reference Range Interpretation Comments Antibody Scrn (test Negative (02/17/15 4:54 code = Antibody Scrn) PM) [facility] WKQGVRB7194-27-86 21:54:00 Test Item Value Reference Range Interpretation Comments ABO/Rh (test code = ABO/Rh) O POS [facility] RenaissanceJovieCARDIAC [id number] 21:54:00 Test Item Value Reference Range Interpretation Comments Troponin-I (test code no gt See_Comment [Auto mated message] The = Troponin-I) system which g enerated this result transmit mimi reference range : <=0.40. The reference r kaylan was not used to interpr et this result as elizabeth l/abnormal. [facility] AustinSuijsaeKPKRPSQFJL5537-96-07 21:54:00 Test Item Value Reference Range Interpretation Comments RBC Morph (test code = Normal (02/17/15 4:54 RBC Morph) PM) [facility] ClinicKnvyyuuLZOYHDYTBG8681-49-73 21:54:00 Test Item Value Reference Range Interpretation Comments Plt Morph (test code = Normal (02/17/15 4:54 Plt Morph) PM) [facility] ClinicJmcctwoUJVHBBLLFB9343-49-21 21:54:00 Test Item Value Reference Range Interpretation Comments INR (test code = INR) 1.00 0.85-1.17 [facility] ClinicVsmykxuAMHNTLXTWN4414-43-02 21:54:00 Test Item Value Reference Range Interpretation Comments PT (test code = PT) 13.2 s 12.0-14.7 [facility] ClinicKbbfkajBDPPECHZRR3131-44-94 21:54:00 Test Item Value Reference Range Interpretation Comments PTT (test code = PTT) 38.8 s 22.9-35.8 [facility]
[2023-01-19] MEDS ORDERED: LACTULOSE 20 GM/30 ML UCUP ONE (10:05)
[2023-01-19] MEDS ORDERED: NA CHLORIDE 0.9% 1,000 ML ONE (10:05)
[2023-01-19 10:31] LABS: Hematocrit 37.5 % (36.0-45.0); Lymphocytes % 12.3 % (15.3-44.8); MCV 87.5 fL (80-100); MPV 10.6 fL (7.6-11.3); RBC Red Blood Cell Count 4.29 M/uL (3.86-4.86)
[2023-01-19 10:53] LABS: Albumin 3.5 g/dL (3.4-5.0); Bilirubin Total 0.4 mg/dL (0.2-1.0); Potassium 4.4 mmol/L (3.5-5.1); Protein, Total 7.5 g/dL (6.4-8.2)
[2023-01-19 11:03] LABS: Urine Blood Trace-intact (Negative); Urine Glucose Negative (Negative); Urine Protein Negative (Negative)
[2023-01-19 11:05] LABS: Blood Morphology Comment NOT SEEN (NOT SEEN); Platelet Estimate ADEQ; White Blood Cell Scan OK (OK)
[2023-01-19 11:06] LABS: Platelets, Giant FEW
--- NOTE | 2023-01-19 11:19 | RAD REPORT ---
EXAM DESCRIPTION: CTAbdomen Pelvis W Contrast - 01/19/2023 11:05 am CLINICAL HISTORY: Abd pain COMPARISON: No comparisons TECHNIQUE: CT of the abdomen and pelvis was performed with IV contrast. All CT scans are performed using dose optimization technique as appropriate and may include automated exposure control or mA/KV adjustment according to patient size. FINDINGS: Lower chest: Aortic valve and mitral annular prostheses. Small hiatal hernia. Liver: No acute abnormality or suspicious lesions. Biliary: Cholecystectomy Stomach: No significant focal abnormality. Duodenum: No significant focal abnormality. Pancreas: No significant abnormality. Spleen: No significant abnormality. Adrenal: No suspicious lesions. Kidney/ureter: No hydronephrosis. No renal calculi. Too small to characterize and/or benign appearing renal lesions are noted. Retroperitoneum: No retroperitoneal adenopathy. Vascular: No aneurysm. Advanced atherosclerosis. Bowel: Moderate colonic formed stool. Inspissated stool and patulous: At the proximal to mid rectum. There is possibly a downstream stricture. Question mild rectal prolapse as well.. Peritoneum: No ascites or free air. Bladder: Grossly unremarkable. Reproductive: No adnexal masses. Bones: No acute fracture. Multilevel degenerative changes are present in the spine. Retrolisthesis of L1 on L2 and L2 on 3. Grade 1 anterolisthesis of L5 on S1. Sclerotic focus in the right proximal fem ur likely a bone island. Probable bone island also and L4. Other: n/a IMPRESSION: 1. No acute intra-abdominal abnormality. 2. Inspissated stool in the proximal to mid rectum at a short segment of patulous rectum. There may b e some component of a downstream stricture. No bowel obstruction is identified. Question mild rectal prolapse.
[2023-01-19] MEDS ORDERED: FLEET ENEMA ADULT PR ONE (11:57)
--- NOTE | 2023-01-19 13:16 | EDPHYS ---
Physician Documentation [facility] Name: Hermelinda Zelaya Age: 87 yrs Sex: Female : 1935 Arrival Date: 01/19/2023 Time: 09:38 Bed 15 Private MD: Todd Franco V ED Physician Damon Riojas HPI: 01/19 09:59 This 87 yrs old Female presents to ER via Ambulatory with complaints of Constipation. sb4 09:59 Patient states she has chronic constipation and takes daily stool softeners but has not sb4 had a normal BM in 4 days. She has taken several stool softeners and enemas without relief. States she just has liquid leak out and feels there is a blockage. She denies any nausea or vomiting. . Historical: - Allergies: 09:50 Codeine; ld1 09:50 Darvon; ld1 09:50 Propoxyphene HCl; ld1 - Immunization history:: Adult Immunizations. - Social history:: Smoking status: Patient denies any tobacco usage or history of. Patient/guardian denies using alcohol. ROS: 09:59 Constitutional: Negative for fever, chills, and weight loss, Eyes: Negative for injury, sb4 pain, redness, and discharge, ENT: Negative for injury, pain, and discharge, Cardiovascular: Negative for chest pain, palpitations, and edema, Respiratory: Negative for shortness of breath, cough, wheezing, and pleuritic chest pain, Back: Negative for injury and pain, MS/Extremity: Negative for injury and deformity, Skin: Negative for injury, rash, and discoloration, Neuro: Negative for headache, weakness, numbness, tingling, and seizure. 09:59 Abdomen/GI: Positive for abdominal pain, constipation, rectal pain, Negative for nausea and vomiting, diarrhea, anorexia, dysphagia, black/tarry stool. Exam: 09:59 Constitutional: This is a well developed, well nourished patient who is awake, alert, sb4 and in no acute distress. Head/Face: Normocephalic, atraumatic. Eyes: Extra-ocular motions intact. Periorbital areas with no swelling, redness, or edema. ENT: Mucous membranes moist. Cardiovascular: Regular rate and rhythm with a normal S1 and S2. Respiratory: No increased work of breathing, no retractions or nasal flaring. Abdomen/GI: Soft, non-tender, no distension. Back: No spinal tenderness. No costovertebral tenderness. Full range of motion. Skin: Warm, dry with normal turgor. Normal color with no rashes, no lesions, and no evidence of cellulitis. MS/ Extremity: Pulses equal, no cyanosis. Neurovascular intact. Full, normal range of motion. Vital Signs: 09:52 BP 115 / 49; Pulse 72; Resp 18; Temp 97.5(O); Pulse Ox 100% on R/A; Weight 65.77 kg; ld1 Height 5 ft. 1 in. (154.94 cm); Pain 0/10; 12:05 BP 134 / 68; Pulse 76; Resp 18; Pulse Ox 97% on R/A; ld1 13:09 BP 129 / 71; Pulse 71; Resp 18; Pulse Ox 98% on R/A; ld1 09:52 Body Mass Index 27.40 (65.77 kg, 154.94 cm) ld1 MDM: 09:44 Patient medically screened. sb4 09:59 Differential diagnosis: constipation, SBO, ileus, hernia. sb4 13:15 Data reviewed: vital signs, nurses notes, lab test result(s), radiologic studies, CT sb4 scan, I have discussed the patient's presentation/case with the attending Emergency Department Physician; and as a result, I will discharge patient. ED course: Patient had a large BM after fleet enema and lactulose with significant relief. Will discharge home.. 01/19 09:58 Order name: CBC with Diff; Complete Time: 11:13 sb4 01/19 09:58 Order name: CMP; Complete Time: 11:13 sb4 01/19 09:58 Order name: Lipase; Complete Time: 11:13 sb4 01/19 09:58 Order name: CT Abd/Pelvis - IV Contrast Only; Complete Time: 11:25 sb4 01/19 09:58 Order name: IV Saline Lock; Complete Time: 10:21 sb4 01/19 09:58 Order name: Labs collected and sent; Complete Time: 10:21 sb4 01/19 09:58 Order name: Urine Dipstick-Ancillary (obtain specimen); Complete Time: 11:18 sb4 01/19 10:34 Order name: CBC Smear Scan; Complete Time: 11:13 EDMS 03 11:04 Order name: Urine Dipstick-Ancillary; Complete Time: 11:13 EDMS Administered Medications: 10:07 Drug: Lactulose 20 grams Volume: 30 ml; Route: PO; ld1 10:21 Drug: NS 0.9% 1000 ml Route: IV; Rate: 1 bolus; Site: right antecubital; ld1 12:04 Drug: Fleet Enema (sodium phosphate) 133 ml Route: KS; ld1 Disposition: 19:22 Co-signature as Attending Physician, Damon Riojas MD I reviewed the patient's care rn provided by the Advanced Practice Provider and agree with the diagnosis and treatment plan. Disposition Summary: 01/19/23 13:16 Discharge Ordered Location: Home sb4 Problem: an ongoing problem sb4 Symptoms: have worsened sb4 Condition: Stable sb4 Diagnosis - Constipation sb4 Followup: sb4 - With: - When: As needed - Reason: Recheck today's complaints, Continuance of care, Re-evaluation by your physician Discharge Instructions: - Discharge Summary Sheet sb4 - Constipation, Adult, Nwrw-ph-Jmmp sb4 Forms: - Medication Reconciliation Form sb4 - Thank You Letter sb4 - Antibiotic Education sb4 - Prescription Opioid Use sb4 Prescriptions: - Lactulose 10 gram/15 mL Oral Solution - take 30 milliliters by ORAL route once daily; 300 milliliter; Refills: 0, sb4 Product Selection Permitted Signatures: Dispatcher [employer] [facility] Damon Riojas MD MD rn Dibbern, Lauren, RN RN ld1 Marce Cool PA-C PA-C sb4
--- NOTE | 2023-01-19 13:16 | ER ---
Nurse's Notes [facility] Name: Hermelinda Zelaya Age: 87 yrs Sex: Female : 1935 Arrival Date: 01/19/2023 Time: 09:38 Bed 15 Private MD: Todd Franco V Diagnosis: Constipation Presentation: 01/19 09:52 Chief complaint: Patient states: Constipation since 01/16/23. Pt reports "I have a ld1 hernia in my colon right above my rectum, I must have a bowel movement every night or I will get impacted." Pt reports taking 2 Dulcolax every night. Coronavirus screen: At this time, the client does not indicate any symptoms associated with coronavirus-19. Ebola Screen: No symptoms or risks identified at this time. Initial Sepsis Screen: Does the patient meet any 2 criteria? No. Patient's initial sepsis screen is negative. Does the patient have a suspected source of infection? No. Patient's initial sepsis screen is negative. Risk Assessment: Do you want to hurt yourself or someone else? Patient reports no desire to harm self or others. Onset of symptoms was January 19, 2023. 09:52 Method Of Arrival: Ambulatory ld1 09:52 Acuity: LOI 3 ld1 Triage Assessment: 09:52 General: Appears in no apparent distress. comfortable, Behavior is calm, cooperative, ld1 appropriate for age. Pain: Denies pain. EENT: No signs and/or symptoms were reported regarding the EENT system. Neuro: Level of Consciousness is awake, alert, obeys commands, Oriented to person, place, time, situation. Cardiovascular: Capillary refill < 3 seconds Patient's skin is warm and dry. Respiratory: Airway is patent Respiratory effort is even, unlabored. GI: Abdomen is flat, non-distended, Reports constipation. : No signs and/or symptoms were reported regarding the genitourinary system. Derm: No signs and/or symptoms reported regarding the dermatologic system. Musculoskeletal: No signs and/or symptoms reported regarding the musculoskeletal system. Historical: - Allergies: 09:50 Codeine; ld1 09:50 Darvon; ld1 09:50 Propoxyphene HCl; ld1 - Immunization history:: Adult Immunizations. - Social history:: Smoking status: Patient denies any tobacco usage or history of. Patient/guardian denies using alcohol. Screenin:56 [facility] ED Fall Risk Assessment (Adult) History of falling in the last 3 months, ld1 including since admission No falls in past 3 months (0 pts). Abuse screen: Denies threats or abuse. Denies injuries from another. Nutritional screening: No deficits noted. Tuberculosis screening: No symptoms or risk factors identified. Assessment: :56 Reassessment: See triage assessment. ld1 13:09 Reassessment: Patient appears in no apparent distress at this time. Patient and/or ld1 family updated on plan of care and expected duration. Pain level reassessed. Patient is alert, oriented x 3, equal unlabored respirations, skin warm/dry/pink. 13:26 GI: Bowel sounds present X 4 quads. Abd is soft Abdomen is tender to palpation. ld1 Vital Signs: 09:52 BP 115 / 49; Pulse 72; Resp 18; Temp 97.5(O); Pulse Ox 100% on R/A; Weight 65.77 kg; ld1 Height 5 ft. 1 in. (154.94 cm); Pain 0/10; 12:05 BP 134 / 68; Pulse 76; Resp 18; Pulse Ox 97% on R/A; ld1 13:09 BP 129 / 71; Pulse 71; Resp 18; Pulse Ox 98% on R/A; ld1 09:52 Body Mass Index 27.40 (65.77 kg, 154.94 cm) ld1 ED Course: 09:38 Patient arrived in ED. am2 09:38 Todd Franco MD is Private Physician. am2 09:39 Marce Cool [facility]-C is [facility]. sb4 09:39 Damon Riojas MD is Attending Physician. sb4 09:49 More Barroso, KIERA is Primary Nurse. ld1 09:52 Arm band placed on right wrist. ld1 09:56 Triage completed. ld1 09:56 Patient has correct armband on for positive identification. Placed in gown. Bed in low ld1 position. Call light in reach. Side rails up X2. desk monitor on. Pulse ox on. NIBP on. Door closed. Noise minimized. Warm blanket given. 09:56 No provider procedures requiring assistance completed. ld1 10:21 Inserted saline lock: 20 gauge in right antecubital area, using aseptic technique. ld1 Blood collected. 11:06 CT Abd/Pelvis - IV Contrast Only In Process Unspecified. EDMS 13:16 Todd Franco MD is Referral Physician. sb4 13:26 IV discontinued, intact, bleeding controlled, No redness/swelling at site. ld1 Administered Medications: 10:07 Drug: Lactulose 20 grams Volume: 30 ml; Route: PO; ld1 10:21 Drug: NS 0.9% 1000 ml Route: IV; Rate: 1 bolus; Site: right antecubital; ld1 12:04 Drug: Fleet Enema (sodium phosphate) 133 ml Route: NH; ld1 Medication: 09:56 VIS not applicable for this client. ld1 Outcome: 13:16 Discharge ordered by . sb4 13:26 Discharged to home ambulatory. ld1 13:26 Condition: stable 13:26 Discharge instructions given to patient, Instructed on discharge instructions, follow up and referral plans. medication usage, Demonstrated understanding of instructions, follow-up care, medications, Prescriptions given X 1. 13:27 Patient left the ED. ld1 Signatures: Dispatcher [employer] EDMS Maira Lang am2 More Barroso, KIERA RN ld1 Marce Cool PAAnneC PA-C sb4
[2023-01-19 13:31] VITALS: TEMP 97.5
[2023-01-19 13:33] VITALS: BP 129/71; O2SAT 98
== END 2023-01-19 13:27 | disposition home or self-care (01) ==
LOC: ER 09:35
DX: K59.00 Constipation, unspecified (principal)
CPT/HCPCS: 85025; 36415; 81003; 83690; 80053; 74177; 99284; Q9967; J7030

== ENCOUNTER 2024-03-28 16:32 | Emergency (ER) | payer OTHER ==
[2024-03-28] MEDS ORDERED: TDAP (DIPHTH,PERTUSS(ACELL),TET VAC) 0.5 ML VIAL IMVAC ONE (17:09)
[2024-03-28 17:10] LABS: Absolute Basophils 0.1 K/uL (0-0.5); Absolute Eosinophils 0.4 K/uL (0-0.5); Absolute Lymphocytes (CBC) 1.4 K/uL (0.7-4.9); Absolute Monocytes 0.8 K/uL (0.1-1.3); Absolute Neutrophil 4.8 K/uL (1.8-8.0); Basophils % 1.2 % (0-1.3); Eosinophils % 5.7 % (0-4.4); Hematocrit 39.2 % (36.0-45.0); Hemoglobin 12.4 g/dL (12.0-15.0); Lymphocytes % 18.8 % (15.3-44.8); MCH 28.3 pg (27.0-35.0); MCHC 31.6 g/dL (32.0-36.0); MCV 89.5 fL (80-100); MPV 11.5 fL (7.6-11.3); Monocytes % 10.5 % (3.3-12.3); Neutrophils % 63.8 % (41.7-73.7); Nucleated Red Blood Cells % 0.1 % (0-0); Platelets 199 thou/uL (152-406); RBC Red Blood Cell Count 4.39 M/uL (3.86-4.86); Red Cell Distribution Width 16.5 % (12.1-15.2)
--- NOTE | 2024-03-28 18:55 | RAD REPORT ---
EXAM DESCRIPTION: CT - CTHCSPWOC - 03/28/2024 5:20 pm CLINICAL HISTORY: fall COMPARISON: Head C Spine Mpr Wo Con dated 12/11/2018 TECHNIQUE: Axial thin cut noncontrast CT images of the head were obtained. Axial thin cut noncontrast CT images of the cervical spine were obtained. Multiplanar reformatted images were generated and reviewed. All CT scans are performed using dose optimization technique as appropriate and may include automated exposure control or mA/KV adjustment according to patient size. FINDINGS: CT HEAD WITHOUT CONTRAST: No acute hemorrhage, hydrocephalus or extra-axial collection is identified.No areas of brain edema or midline shift. The paranasal sinuses and mastoids are clear.The calvarium is intact. Soft tissue swelling and hemat chayo along the left lateral orbital margin. CT CERVICAL SPINE WITHOUT CONTRAST: No fracture or subluxation. Moderate degenerative pannus at C1-2. Multilevel moderate facet degenerat pilo changes with ankylosis on the left across C5-6 and C6-7, contributing to moderate to advanced deg emily of foraminal stenosis most notably on the left at C3-4. No prevertebral soft tissues swelling is identified. IMPRESSION: No acute traumatic intracranial or cervical spine findings. Soft tissue swelling and hematoma along the left lateral orbital margin. Cervical spine degenerative changes as above.
--- NOTE | 2024-03-28 19:07 | EDPHYS ---
Physician Documentation [facility] Name: Hermelinda Zelaya Age: 88 yrs Sex: Female : 1935 Arrival Date: 03/28/2024 Time: 16:32 Bed 7 Private MD: ED Physician Wojciech Alexandre HPI: 03/28 17:03 This 88 yrs old Female presents to ER via EMS with complaints of fall. ms3 17:04 88-year-old female with past medical history of measles presents to the emergency ms3 department status post trip and fall. Patient states she was walking around her car to help her friend when she tripped over a parking curb. Patient states she is having moderate head pain. Patient denies vomiting. Patient states she does take aspirin.. Historical: - Allergies: 16:34 Codeine; mb9 16:34 Darvon; mb9 16:34 Propoxyphene HCl; mb9 16:34 Epinephrine; mb9 - Home Meds: 16:34 Aspirin Oral [Active]; mb9 - PMHx: 16:34 measles; mb9 - PSHx: 16:34 Back; Cholecystectomy; Tonsillectomy; Total abdominal hysterectomy; open heart surgery; mb9 hernia; - Immunization history:: Adult Immunizations up to date. - Infectious Disease History:: Denies. - Social history:: Smoking status: Patient denies any tobacco usage or history of. ROS: 17:04 Constitutional: Negative for fever, and chills. Neck: Negative for injury, pain, and ms3 swelling, Cardiovascular: Negative for chest pain, and palpitations. Respiratory: Negative for shortness of breath, cough, wheezing, and pleuritic chest pain, Abdomen/GI: Negative for abdominal pain, nausea, vomiting, diarrhea, and constipation, MS/Extremity: Negative for injury and deformity, 17:04 Skin: Positive for abrasion(s), ecchymosis, swelling, Contusion, Exam: 17:04 Constitutional: This is a well developed, well nourished patient who is awake, alert, ms3 and in no acute distress. Head/Face: Normocephalic, atraumatic. Neck: Trachea midline, no cervical lymphadenopathy. Supple, full range of motion without nuchal rigidity, or vertebral point tenderness. No Meningismus. Chest/axilla: Normal chest wall appearance and motion. Nontender with no deformity. Cardiovascular: Regular rate and rhythm with a normal S1 and S2. No gallops, murmurs, or rubs. Normal PMI, no JVD. No pulse deficits. Respiratory: Lungs have equal breath sounds bilaterally, clear to auscultation and percussion. No rales, rhonchi or wheezes noted. No increased work of breathing, no retractions or nasal flaring. Abdomen/GI: Soft, non-tender, with normal bowel sounds. No distension or tympany. No guarding or rebound. No evidence of tenderness throughout. 17:04 Skin: injury, abrasion(s), Bilateral knees, left hand, left eyebrow, contusion(s), that are superficial, of the Left eyebrow, Vital Signs: 16:38 BP 144 / 56; Pulse 74; Resp 18; Temp 98.2; Pulse Ox 100% on R/A; Weight 65.77 kg; mb9 Height 5 ft. 4 in. ; Pain 10/10; 18:28 BP 148 / 71; Pulse 70; Resp 16; Pulse Ox 99% on R/A; mb9 19:00 BP 154 / 70; Pulse 87; Resp 17 S; Pulse Ox 99% on R/A; jw7 16:38 Body Mass Index 24.89 (65.77 kg, 162.56 cm) mb9 16:38 Pain Scale: Adult mb9 MDM: 16:50 Patient medically screened. ms3 17:04 Differential diagnosis: abrasion, closed head injury, contusion, fracture, sprain, ms3 strain. 19:07 Data reviewed: vital signs, nurses notes, lab test result(s), radiologic studies, and ms3 as a result, I will discharge patient. I considered the following discharge prescriptions or medication management in the emergency department Medications were administered in the Emergency Department. See MAR. Independent interpretation of the following test(s) in the Emergency Department CT Scan: My interpretation is CT head without contrast images reviewed by me do not reveal ICH. Counseling: I had a detailed discussion with the patient and/or guardian regarding the historical points, exam findings, and any diagnostic results supporting the discharge/admit diagnosis, lab results, radiology results, the need for outpatient follow up, to return to the emergency department if symptoms worsen or persist or if there are any questions or concerns that arise at home. Special discussion: I discussed with the patient/guardian in detail that at this point there is no indication for admission to the hospital. It is understood, however, that if the symptoms persist or worsen the patient needs to return immediately for re-evaluation. ED course: Discussed labs and imaging with patient. Patient to follow-up with primary care physician 2 to 3 days for reevaluation. Patient understands and agrees with plan. All questions were answered. Return precautions discussed include worsening symptoms, or any other concerns. 03/28 16:50 Order name: Basic Metabolic Panel; Complete Time: 17:27 ms3 03/28 16:50 Order name: CBC with Diff; Complete Time: 17:16 ms3 03/28 16:50 Order name: CT Head C Spine; Complete Time: 19:01 ms3 03/28 16:50 Order name: Labs collected and sent; Complete Time: 16:58 ms3 Administered Medications: 17:13 Drug: Tetanus-Diphtheria Toxoid IM Adult 0.5 ml IM once; Provide Vaccine Information ld1 Statement (VIS). {[employer]: [employer]; Exp: MonDec 05 2025; Lot #: [id number]; Series: 1 of 1; Patient Consent: Obtained; Date/Time: ; Source Name: Hermelinda Zelaya; Source Relationship: Self; Address Information: [address] [place] [address]; ; Education: Provided; VIS Presented Date: ; VIS Publication: Tetanus/Diphtheria (Td) VIS 12/24/2013 (historic)} Route: IM; Site: right deltoid; 18:46 Follow up: Response: No adverse reaction mb9 Disposition Summary: 03/28/24 19:07 Discharge Ordered Notes: Location: Home ms3 Condition: Stable ms3 Diagnosis - Contusion of unspecified part of head ms3 - Fall on same level, unspecified ms3 Followup: ms3 - With: Mitul Cote DO - When: 2 - 3 days - Reason: Recheck today's complaints Discharge Instructions: - Discharge Summary Sheet ms3 - Fall Prevention in the Home, Adult ms3 - Contusion, [id number] ms3 Forms: - Medication Reconciliation Form ms3 - Antibiotic Education ms3 - Prescription Opioid Use ms3 - Patient Portal Instructions ms3 - Leadership Thank You Letter ms3 Signatures: Dispatcher [employer] EDMS Wojciech Alexandre, DO DO ms3 More Alexandre RN RN ld1 Michelle, Nikkie Vo RN RN mb9
--- NOTE | 2024-03-28 19:07 | ER ---
Nurse's Notes [facility] Name: Hermelinda Zelaya Age: 88 yrs Sex: Female : 1935 Arrival Date: 03/28/2024 Time: 16:32 Bed 7 Private MD: Diagnosis: Contusion of unspecified part of head;Fall on same level, unspecified Presentation: 03/28 16:38 Chief complaint: EMS states: "toned out for tripping over concrete barrier and falling. mb9 Pt hit left side of forehead, bilateral knees, and left hand. NO LOC and does not take blood thinners.". Coronavirus screen: Vaccine status: Patient reports being unvaccinated. Ebola Screen: No symptoms or risks identified at this time. Initial Sepsis Screen: Does the patient meet any 2 criteria? No. Patient's initial sepsis screen is negative. Does the patient have a suspected source of infection? No. Patient's initial sepsis screen is negative. Risk Assessment: Do you want to hurt yourself or someone else? Patient reports no desire to harm self or others. Onset of symptoms was March 28, 2024. 16:38 Method Of Arrival: EMS: [facility] mb9 16:38 Acuity: LOI 3 mb9 Triage Assessment: 16:39 General: Appears in no apparent distress. Behavior is calm, cooperative, appropriate mb9 for age. Pain: Complains of pain in left hand and forehead Pain does not radiate. Pain currently is 10 out of 10 on a pain scale. Quality of pain is described as throbbing, Pain began suddenly. EENT: No signs and/or symptoms were reported regarding the EENT system. Neuro: Sahni Agitation-Sedation Scale (RASS): 0 - Alert and Calm Level of Consciousness is awake, alert, obeys commands, Oriented to person, place, time, situation, Appropriate for age. Cardiovascular: Patient's skin is warm and dry. Respiratory: Airway is patent Respiratory effort is even, unlabored, Respiratory pattern is regular, symmetrical. GI: No signs and/or symptoms were reported involving the gastrointestinal system. : No signs and/or symptoms were reported regarding the genitourinary system. Derm: Bruising that is dark purple, on face, left hand, and bilateral knees. Musculoskeletal: Range of motion: intact in all extremities. Historical: - Allergies: 16:34 Codeine; mb9 16:34 Darvon; mb9 16:34 Propoxyphene HCl; mb9 16:34 Epinephrine; mb9 - Home Meds: 16:34 Aspirin Oral [Active]; mb9 - PMHx: 16:34 measles; mb9 - PSHx: 16:34 Back; Cholecystectomy; Tonsillectomy; Total abdominal hysterectomy; open heart surgery; mb9 hernia; Historical Immunization: - Administered Vaccines 17:13 Tetanus-Diphtheria Toxoid IM Adult 0.5 ml ld1 [employer]: [employer]; Exp: MonDec 05 2025; Lot #: [id number]; Series: 1 of 1; Patient Consent: Obtained; Date/Time: ; Source Name: Hermelinda Zelaya; Source Relationship: Self; Address Information: [address] [place] [address]; ; Education: Provided; VIS Presented Date: ; VIS Publication: Tetanus/Diphtheria (Td) VIS 12/24/2013 (historic) - Immunization history:: Adult Immunizations up to date. - Infectious Disease History:: Denies. - Social history:: Smoking status: Patient denies any tobacco usage or history of. Screenin:40 [facility] ED Fall Risk Assessment (Adult) History of falling in the last 3 months, mb9 including since admission Yes- single mechanical fall (1 pt) Confusion or Disorientation No (0 pts) Intoxicated or Sedated No (0 pts) Impaired Gait No (0 pts) Mobility Assist Device Used No (0 pt) Altered Elimination No (0 pt) Score/Fall Risk Level 0 - 2 = Low Risk Oriented to surroundings, Maintained a safe environment, Educated pt \\T\\ family on fall prevention, incl call for assistance when getting out of bed. Abuse screen: Denies threats or abuse. Nutritional screening: No deficits noted. Tuberculosis screening: No symptoms or risk factors identified. Assessment: 16:41 Reassessment: see triage assessment. mb9 18:25 Reassessment: Patient appears in no apparent distress at this time. No changes from mb9 previously documented assessment. Patient and/or family updated on plan of care and expected duration. Pain level reassessed. Patient is alert, oriented x 3, equal unlabored respirations, skin warm/dry/pink. 19:00 General: Appears in no apparent distress. comfortable, Behavior is calm, cooperative. jw7 Pain: Denies pain. Neuro: Level of Consciousness is awake, alert, obeys commands, Oriented to person, place, time, situation. Cardiovascular: Capillary refill < 3 seconds Clubbing of nail beds is absent JVD is absent Patient's skin is warm and dry. Respiratory: Airway is patent Trachea midline Respiratory effort is even, unlabored, Respiratory pattern is regular, symmetrical. GI: Abdomen is flat, non-distended, Bowel sounds present X 4 quads. Abd is soft and non tender X 4 quads. : No deficits noted. No signs and/or symptoms were reported regarding the genitourinary system. EENT: No deficits noted. No signs and/or symptoms were reported regarding the EENT system. Derm: Skin is healthy with good turgor, is fragile, Skin is dry, Skin is normal, Skin temperature is warm Bruising that is dark purple, on left eye and left hand. Musculoskeletal: Circulation, motion, and sensation intact. Range of motion: intact in all extremities. Vital Signs: 16:38 BP 144 / 56; Pulse 74; Resp 18; Temp 98.2; Pulse Ox 100% on R/A; Weight 65.77 kg; mb9 Height 5 ft. 4 in. ; Pain 10/10; 18:28 BP 148 / 71; Pulse 70; Resp 16; Pulse Ox 99% on R/A; mb9 19:00 BP 154 / 70; Pulse 87; Resp 17 S; Pulse Ox 99% on R/A; jw7 16:38 Body Mass Index 24.89 (65.77 kg, 162.56 cm) mb9 16:38 Pain Scale: Adult mb9 ED Course: 16:34 Patient arrived in ED. mb9 16:34 Arm band placed on. mb9 16:39 Wojciech Alexandre DO is Attending Physician. ms3 16:39 Triage completed. mb9 16:40 Placed in gown. Bed in low position. Call light in reach. Side rails up X 1. Provided mb9 Education on: press call light if needing anything. Client placed on continuous cardiac and pulse oximetry monitoring. NIBP monitoring applied. caser up on. 16:41 No provider procedures requiring assistance completed. mb9 16:51 Nikkie Martinez, KIERA is Primary Nurse. mb9 16:58 Basic Metabolic Panel Sent. mb9 16:58 CBC with Diff Sent. mb9 16:59 Initial lab(s) drawn, by me, sent to lab. Inserted saline lock: 20 gauge in right mb9 antecubital area, using aseptic technique. Blood collected. 17:21 CT Head C Spine In Process Unspecified. EDMS 19:02 Report given to David RN. mb9 19:07 Mitul Cote DO is Referral Physician. ms3 19:24 IV discontinued, intact, bleeding controlled, No redness/swelling at site. Pressure jw7 dressing applied. Administered Medications: 17:13 Drug: Tetanus-Diphtheria Toxoid IM Adult 0.5 ml IM once; Provide Vaccine Information ld1 Statement (VIS). {[employer]er: [employer]; Exp: MonDec 05 2025; Lot #: [id number]; Series: 1 of ; Patient Consent: Obtained; Date/Time: ; Source Name: Hermelinda Zelaya; Source Relationship: Self; Address Information: [address] [place] [address]; ; Education: Provided; VIS Presented Date: ; VIS Publication: Tetanus/Diphtheria (Td) VIS 12/24/2013 (historic)} Route: IM; Site: right deltoid; 18:46 Follow up: Response: No adverse reaction mb9 Medication: 16:41 VIS not applicable for this client. mb9 Outcome: 19:07 Discharge ordered by . ms3 19:24 Discharged to home ambulatory, with family, jw7 19:24 Condition: stable 19:24 Discharge instructions given to patient, Instructed on discharge instructions, follow up and referral plans. Demonstrated understanding of instructions, follow-up care, 19:24 Patient left the ED. marilyn Signatures: Dispatcher [employer] EDMS Wojciech Alexandre DO DO ms3 More Alexandre RN RN ld1 Riya Schroeder RN RN jw7 Breneman, Mary Beth, RN RN mb9 Corrections: (The following items were deleted from the chart) 16:52 16:38 Acuity: LOI 4 mb9 mb9
[2024-03-28 19:36] VITALS: BP 154/70; TEMP 98.2; O2SAT 99
== END 2024-03-28 19:24 | disposition home or self-care (01) ==
LOC: ER 16:32
DX: S00.83XA Contusion of other part of head, initial encounter (principal); W18.09XA Striking against other object with subsequent fall, initial encounter; Z23 Encounter for immunization; Z79.82 Long term (current) use of aspirin; Z88.5 Allergy status to narcotic agent; Z88.8 Allergy status to other drugs, medicaments and biological substances
CPT/HCPCS: 36415; 70450; 72125; 80048; 85025; 90471; 99285

== ENCOUNTER 2024-07-07 00:32 | Inpatient (IN) | payer OTHER ==
[2024-07-07] MEDS ORDERED: METHYLPREDNISOLONE 125 MG INJ ONE (00:47)
[2024-07-07 01:02] LABS: Absolute Basophils 0.2 K/uL (0-0.5); Absolute Eosinophils 0.3 K/uL (0-0.5); Absolute Lymphocytes (CBC) 0.9 K/uL (0.7-4.9); Absolute Monocytes 0.8 K/uL (0.1-1.3); Absolute Neutrophil 10.1 K/uL (1.8-8.0); Basophils % 1.3 % (0-1.3); Eosinophils % 2.4 % (0-4.4); Hematocrit 27.6 % (36.0-45.0); Hemoglobin 9.1 g/dL (12.0-15.0); Lymphocytes % 6.9 % (15.3-44.8); MCH 30.6 pg (27.0-35.0); MCHC 32.8 g/dL (32.0-36.0); MCV 93.3 fL (80-100); MPV 11.1 fL (7.6-11.3); Monocytes % 6.9 % (3.3-12.3); Neutrophils % 82.5 % (41.7-73.7); Nucleated Red Blood Cells % 0.1 % (0-0); Platelets 228 thou/uL (152-406); RBC Red Blood Cell Count 2.96 M/uL (3.86-4.86)
[2024-07-07 01:14] LABS: SARS-CoV-2 Antigen CONTROL BLUE LINE VIS/BG OK; SARS-CoV-2 Antigen Rapid Res Negative (Negative)
[2024-07-07 01:24] LABS: Anion Gap 11.8 mEq/L (5.0-15.0); Potassium 3.8 mEq/L (3.5-5.1)
--- NOTE | 2024-07-07 01:33 | EDPHYS ---
Physician Documentation [facility] Name: Hermelinda Zelaya Age: 88 yrs Sex: Female : 1935 Arrival Date: 07/07/2024 Time: 00:32 Bed 2 Private MD: ED Physician Josue Hurtado HPI: 07/07 00:55 This 88 yrs old Female presents to ER via EMS with complaints of Asthma ec2 Exacerbation. 00:55 Patient arrives today for evaluation progressive shortness of breath. History of ec2 asthma, has been using her inhalers with minimal improvement in symptoms. EMS reports that they had given her an ARLENE treatment. . Historical: - Allergies: 00:48 Codeine; cp4 00:48 Darvon; cp4 00:48 Epinephrine; cp4 00:48 Propoxyphene HCl; cp4 - Home Meds: 00:48 albuterol sulfate 5 mg/mL Inhl Solution for Nebulization [Active]; diltiazem HCl 300 mg cp4 Oral Capsule 1 cap daily [Active]; losartan 100 mg Oral tablet 1 tab daily [Active]; prednisone 20 mg Oral tablet 1 tab daily [Active]; rosuvastatin 20 mg Oral tablet 1 tab daily [Active]; spironolactone 25 mg Oral tablet 1 tab daily [Active]; - PMHx: 00:48 Asthma; Congestive heart failure; Hypertensive disorder; measles; cp4 - PSHx: 00:48 back; Cholecystectomy; hernia; open heart surgery; Tonsillectomy; Total abdominal cp4 hysterectomy; - Immunization history:: Adult Immunizations up to date. - Infectious Disease History:: Denies. - Social history:: Smoking status: Patient denies any tobacco usage or history of. ROS: 00:55 Constitutional: as per hpi ec2 Exam: 00:55 Constitutional: GEN: NAD Head: atraumatic Eyes: EOMI Ears: External ears are ec2 normal. CV: regular rate LUNGS: no respiratory distress, scattered wheezes throughout all lung grace. ABD: non-distended SKIN: no evidence of rashes MSK: no evidence of trauma Vital Signs: 00:45 BP 148 / 64; Pulse 97; Resp 20; Temp 98.1; Pulse Ox 100% on 2 lpm NC; cp4 01:30 BP 133 / 62; Pulse 89; Resp 20; Pulse Ox 93% on R/A; cp4 02:28 BP 121 / 53; Pulse 84; Resp 20; Pulse Ox 94% on 2 lpm NC; cp4 MDM: 00:42 Patient medically screened. ec2 00:55 Data reviewed: vital signs. ED course: Patient arrives today for evaluation of ec2 shortness of breath. Examination remarkable for expiratory wheezing noted, will obtain lab work, EKG, chest x-ray. Differential includes asthma exacerbation, pneumonia, viral infection.. 01:10 ED course: EKG independently reviewed and interpreted by me, shows normal sinus rhythm, ec2 rate of 97, no acute ST segment elevations, intervals are nonconcerning. . 01:31 ED course: Metabolic profile shows slight hyponatremia. CBC shows slight leukocytosis. ec2 BNP elevated at 1700, flu and COVID testing negative. Chest x-ray independently reviewed and interpreted by me, shows cardiomegaly, bilateral patchy opacities, vascular congestion, cardiomegaly noted. Possible superimposed infection. Will add on septic workup and empirically treat with antibiotics. Given the patient's age, will admit for antibiotics. I will avoid aggressive fluid resuscitation given concern for possible volume overload concurrently. . 01:40 ED course: Discussed case with hospitalist, pending admission.. ec2 07/07 00:45 Order name: Basic Metabolic Panel; Complete Time: 01:28 ec2 07/07 00:45 Order name: CBC with Diff; Complete Time: : ec2 07/07 00:45 Order name: Influenza Screen (a \T\ B); Complete Time: 01: ec2 07/07 00:45 Order name: SARS RAPID; Complete Time: 01:28 ec2 07/07 00:45 Order name: BNP; Complete Time: 01:28 ec2 07/07 01:32 Order name: Blood Culture Adult (2) ec2 07/07 01:32 Order name: Lactate w/ 2H reflex if indic.; Complete Time: 02:14 ec2 07/07 02:21 Order name: Hemoglobin A1c EDDC 07/07 02:21 Order name: Thyroid Stimulating Hormone EDDC 07/07 02:21 Order name: CBC with Automated Diff EDDC 07/07 02:21 Order name: CBC with Automated Diff EDDC 07/07 02:21 Order name: Comprehensive Metabolic Panel EDDC 07/07 02:21 Order name: Comprehensive Metabolic Panel EDDC 07/07 02:21 Order name: Creatine Phosphokinase EDDC 07/07 02:21 Order name: Creatine Phosphokinase EDMS 07/07 02:21 Order name: Creatine Phosphokinase EDMS 07/07 02:21 Order name: Creatine Phosphokinase EDMS 07/07 02:21 Order name: Magnesium EDMS 07/07 02:21 Order name: Magnesium EDMS 07/07 02:21 Order name: Magnesium EDMS 07/07 02:21 Order name: Magnesium EDMS 07/07 02:21 Order name: Troponin High Sensitivity EDMS 07/07 02:21 Order name: Troponin High Sensitivity EDMS 07/07 00:45 Order name: XRAY Chest (1 view) ec2 07/07 02:21 Order name: Echo with Doppler EDDC 07/07 00:45 Order name: EKG; Complete Time: 00:46 ec2 07/07 00:45 Order name: Cardiac monitoring; Complete Time: 00:58 ec2 07/07 00:45 Order name: EKG - Nurse/Tech; Complete Time: 01:07 ec2 07/07 00:45 Order name: IV Saline Lock; Complete Time: 00:58 ec2 07/07 00:45 Order name: Labs collected and sent; Complete Time: 00:58 ec2 07/07 00:45 Order name: O2 Per Protocol; Complete Time: 00:58 ec2 07/07 00:45 Order name: O2 Sat Monitoring; Complete Time: 00:58 ec2 Administered Medications: 00:50 Drug: MethylPrednisoLONE IVP 125 mg IVP once Route: IVP; Site: right antecubital; [facility] er 01:51 Follow up: Response: No adverse reaction 4 01:55 Drug: Furosemide IVP 40 mg IVP once; give over 2 minutes Route: IVP; Site: right cp4 antecubital; 02:47 Follow up: Response: No adverse reaction 4 02:26 Drug: Rocephin IV 1 grams IV at calculated rate once; Given slow IV push per pharmacy 4 instructions Route: IV; Rate: calculated rate; Site: right antecubital; 02:26 Follow up: Response: Adverse reaction, Physician notified; IV Status: Completed infusion4 02:27 Drug: diphenhydrAMINE IVP 12.5 mg IVP once Route: IVP; Site: right antecubital; cp4 02:45 Follow up: Response: Marked relief of symptoms cp4 02:49 Drug: AZITHromycin IVPB 500 mg IVPB once over 1 hrs; (mix in 250 mL NS) Route: IVPB; cp4 Infused Over: 1 hrs; Site: right antecubital; 02:59 Follow up: Response: No adverse reaction; IV Status: Infusion continued upon admission cp4 Disposition: 01:32 Critical Care:. ec2 Disposition Summary: 07/07/24 01:33 Hospitalization Ordered Notes: Hospitalization Status: Inpatient Admission ec2 Provider: Danielito Escamilla ec2 [facility] Condition: Stable ec2 Problem: an acute exacerbation ec2 Bed/Room Type: Standard ec2 Symptoms: have improved(07/07/24 01:33) ec2 Room Assignment: 228(07/07/24 01:48) af3 Diagnosis - Sepsis, unspecified organism ec2 - Pneumonia, unspecified organism ec2 - Volume Overload ec2 Forms: - Medication Reconciliation Form ec2 - SBAR form ec2 - Leadership Thank You Letter ec2 Critical care time excluding procedures: 01:32 Critical care time: Bedside Care: 30 minutes, Consultation: 5 minutes. Total time: 35 ec2 minutes Signatures: Dispatcher [employer] EDMS Josue Hurtado MD MD ec2 Kasandra Gamino cp4 Emanuel Holcomb RN RN 8 Yanna Goodman af3 Corrections: (The following items were deleted from the chart) 00:46 00:46 BASIC METABOLIC PANEL+C.LAB.BRZ ordered. EDMS EDMS 00:46 00:46 CBC+H.LAB.BRZ ordered. EDMS EDMS 00:46 00:46 Influenza Screen (A \T\ B)+BA.LAB.BRZ ordered. EDMS EDMS 00:46 00:46 SARS-COV-2 Antigen Rapid+I.LAB.BRZ ordered. EDMS EDMS 01:33 01:33 have worsened ec2 ec2 01:48 01:33 ec2 af3
--- NOTE | 2024-07-07 01:33 | ER ---
Nurse's Notes [facility] Name: Hermelinda Zelaya Age: 88 yrs Sex: Female : 1935 Arrival Date: 07/07/2024 Time: 00:32 Bed 2 Private MD: Diagnosis: Sepsis, unspecified organism;Pneumonia, unspecified organism;Volume Overload Presentation: 07/07 00:45 Chief complaint: EMS states: asthma attack that started about 30 minutes ago. cp4 Coronavirus screen: Client denies travel out of the [place] in the last 14 days. At this time, the client does not indicate any symptoms associated with coronavirus-19. Ebola Screen: Patient negative for fever greater than or equal to 101.5 degrees Fahrenheit, and additional compatible Ebola Virus Disease symptoms Patient denies exposure to infectious person. Patient denies travel to an Ebola-affected area in the 21 days before illness onset. No symptoms or risks identified at this time. Initial Sepsis Screen: Does the patient meet any 2 criteria?. Initial Sepsis Screen: Does the patient meet any 2 criteria? HR > 90 bpm. No. Patient's initial sepsis screen is negative. Does the patient have a suspected source of infection? No. Patient's initial sepsis screen is negative. Risk Assessment: Do you want to hurt yourself or someone else? Patient reports no desire to harm self or others. Onset of symptoms was July 07, 2024. 00:45 Method Of Arrival: [facility] 00:45 Acuity: LOI 2 cp4 00:48 Care prior to arrival: Medication(s) given: Albuterol Neb x 1, Atrovent Neb x 1. cp4 Triage Assessment: 00:48 General: Appears distressed, uncomfortable, Behavior is calm, cooperative, appropriate cp4 for age. Pain: Complains of pain in right arm Pain does not radiate. Pain currently is 8 out of 10 on a pain scale. EENT: No signs and/or symptoms were reported regarding the EENT system. Neuro: Level of Consciousness is awake, alert, obeys commands, Oriented to person, place, time, situation. Cardiovascular: No deficits noted. Respiratory: Reports shortness of breath at rest labored breathing since 30 minutes Airway is patent Respiratory effort is labored, using tripod position, Breath sounds with wheezes bilaterally. GI: No signs and/or symptoms were reported involving the gastrointestinal system. : No signs and/or symptoms were reported regarding the genitourinary system. Derm: No signs and/or symptoms reported regarding the dermatologic system. Musculoskeletal: No signs and/or symptoms reported regarding the musculoskeletal system. Historical: - Allergies: 00:48 Codeine; cp4 00:48 Darvon; cp4 00:48 Epinephrine; cp4 00:48 Propoxyphene HCl; cp4 - Home Meds: 00:48 albuterol sulfate 5 mg/mL Inhl Solution for Nebulization [Active]; diltiazem HCl 300 mg cp4 Oral Capsule 1 cap daily [Active]; losartan 100 mg Oral tablet 1 tab daily [Active]; prednisone 20 mg Oral tablet 1 tab daily [Active]; rosuvastatin 20 mg Oral tablet 1 tab daily [Active]; spironolactone 25 mg Oral tablet 1 tab daily [Active]; - PMHx: 00:48 Asthma; Congestive heart failure; Hypertensive disorder; measles; cp4 - PSHx: 00:48 back; Cholecystectomy; hernia; open heart surgery; Tonsillectomy; Total abdominal cp4 hysterectomy; - Immunization history:: Adult Immunizations up to date. - Infectious Disease History:: Denies. - Social history:: Smoking status: Patient denies any tobacco usage or history of. Screenin:51 [facility] ED Fall Risk Assessment (Adult) History of falling in the last 3 months, cp4 including since admission No falls in past 3 months (0 pts) Confusion or Disorientation No (0 pts) Intoxicated or Sedated No (0 pts) Impaired Gait No (0 pts) Mobility Assist Device Used No (0 pt) Altered Elimination No (0 pt) Score/Fall Risk Level 0 - 2 = Low Risk Oriented to surroundings, Maintained a safe environment, Assessed \\T\\ reinforced patient's understanding of fall precautions, Hourly rounding (assess needs \\T\\ fall precautionary measures) done. [facility] ED Fall Risk Assessment (Adult) History of falling in the last 3 months, including since admission. Abuse screen: Denies threats or abuse. Nutritional screening: No deficits noted. Tuberculosis screening: No symptoms or risk factors identified. Assessment: 00:51 Reassessment: No changes from previously documented assessment. cp4 01:30 Reassessment: No changes from previously documented assessment. Patient and/or family cp4 updated on plan of care and expected duration. Pain level reassessed. Patient is alert, oriented x 3, equal unlabored respirations, skin warm/dry/pink. 01:30 Reassessment: Patient had allergic reaction to Rocephin IV. Benadryl IV given. Will cp4 monitor patient before transferring to floor. 02:46 Reassessment: Patient refused to wear hospital gown stating "It is too cold to wear cp4 that". Vital Signs: 00:45 BP 148 / 64; Pulse 97; Resp 20; Temp 98.1; Pulse Ox 100% on 2 lpm NC; cp4 01:30 BP 133 / 62; Pulse 89; Resp 20; Pulse Ox 93% on R/A; cp4 02:28 BP 121 / 53; Pulse 84; Resp 20; Pulse Ox 94% on 2 lpm NC; cp4 ED Course: 00:34 Patient arrived in ED. cp4 00:41 Josue Hurtado MD is Attending Physician. ec2 00:48 Triage completed. cp4 00:48 Arm band placed on right wrist. Patient placed in an exam room, on a stretcher. cp4 00:51 Bed in low position. Call light in reach. Side rails up X2. cp4 00:51 No provider procedures requiring assistance completed. Initial lab(s) drawn, by me, cp4 sent to lab. COVID swab sent to lab. Flu and/or RSV swab sent to lab. Inserted saline lock: 22 gauge in right antecubital area, using aseptic technique. Blood collected. Flushed with 10 mL NS. 00:57 SARS RAPID Sent. cp4 00:57 Influenza Screen (a \\T\\ B) Sent. cp4 00:58 BNP Sent. cp4 01:07 Kasandra Gamino is Primary Nurse. cp4 01:25 XRAY Chest (1 view) In Process Unspecified. EDMS 01:33 Danielito Escamilla MD is Hospitalizing Provider. ec2 01:45 First set of blood cultures drawn by me. cp4 03:00 Provided Education on: admission. cp4 03:00 Patient admitted, IV remains in place. cp4 Administered Medications: 00:50 Drug: MethylPrednisoLONE IVP 125 mg IVP once Route: IVP; Site: right antecubital; 8 01:51 Follow up: Response: No adverse reaction cp4 01:55 Drug: Furosemide IVP 40 mg IVP once; give over 2 minutes Route: IVP; Site: right cp4 antecubital; 02:47 Follow up: Response: No adverse reaction cp4 02:26 Drug: Rocephin IV 1 grams IV at calculated rate once; Given slow IV push per pharmacy cp4 instructions Route: IV; Rate: calculated rate; Site: right antecubital; 02:26 Follow up: Response: Adverse reaction, Physician notified; IV Status: Completed infusioncp4 02:27 Drug: diphenhydrAMINE IVP 12.5 mg IVP once Route: IVP; Site: right antecubital; cp4 02:45 Follow up: Response: Marked relief of symptoms cp4 02:49 Drug: AZITHromycin IVPB 500 mg IVPB once over 1 hrs; (mix in 250 mL NS) Route: IVPB; cp4 Infused Over: 1 hrs; Site: right antecubital; 02:59 Follow up: Response: No adverse reaction; IV Status: Infusion continued upon admission cp4 Medication: 00:51 VIS not applicable for this client. cp4 Outcome: 01:33 Decision to Hospitalize by Provider. ec2 03:00 Admitted to Med/surg accompanied by tech, via stretcher, with oxygen, with chart, cp4 03:00 Condition: stable 03:00 Instructed on the need for admit, 03:00 Patient left the ED. cp4 Signatures: Dispatcher [employer] Josue Jones MD MD 2 Kasandra Gamino cp4 Emanuel Holcomb, RN RN [id number]
[2024-07-07] MEDS ORDERED: FUROSEMIDE 40 MG/4 ML VIAL ONE (01:58)
[2024-07-07] MEDS ORDERED: CEFTRIAXONE 1000 MG/VIAL ONE (01:58)
--- NOTE | 2024-07-07 02:06 | P.HP ---
Certification for Inpatient With expected LOS: >2 Midnights Patient will require the following post-hospital care: None Practitioner: I am a practitioner with admitting privileges, knowledge of patient current condition, hospital course, and medical plan of care. Services: Services provided to patient in accordance with Admission requirements found in Title 42 Section 412.3 of the Code of Federal Regulations Patient History Date of Service: 07/07/24 Reason for admission: Shortness of breath History of Present Illness: 88-year-old female with past medical history of asthma, hypertension, aortic valve replacement, diastolic CHF with last echo showing EF of 82%, presented today after developing shortness of breath this evening. Patient admits to some wheezing. She feels symptoms is due to asthma exacerbation. She had called EMS. On arrival of EMS patient received breathing treatment with minimal response. She presented to the ED. On arrival in the ED vital signs were stable, satting at 100% on 2 L nasal cannula, afebrile, COVID screen was negative, serum sodium low at 130, glucose elevated at 279, WBC elevated at 12.9 chest x-ray pending , proBNP elevated at greater than 1700,. Patient has been admitted for presumed asthma exacerbation versus CHF exacerbation Allergies codeine Allergy (Unknown, Verified 08/15/15 03:01) dizzy epinephrine Allergy (Unknown, Verified 08/15/15 03:01) Hives propoxyphene HCl [From Darvon] Allergy (Unknown, Verified 08/15/15 03:01) Unknown Home Medications: Albuterol Inhaler [Ventolin Inhaler*] 2 puff IN PRN PRN 08/15/15 Albuterol Sulfate [Albuterol Sulfate 0.083% Neb Soln] 3 mg IN PRN PRN 08/15/15 Aspirin Chewable [Aspirin Chewable*] 81 mg PO DAILY 08/15/15 B Complex with Vitamin C [Super B Complex with C] 1 tab PO DAILY 08/15/15 Docosahexanoic AC/Epa [Fish Oil 1,000 MG*] 1,200 mg PO DAILY 08/15/15 Fluticasone/Salmeterol [Advair 100/50 Diskus*] 50 mcg IN DAILY 08/15/15 Guaifenesin [Mucinex] 600 mg PO BID PRN 08/15/15 Ipratropium [place] 0.5 mg IN PRN 08/15/15 Losartan Potassium 100 mg PO DAILY 08/15/15 Magnesium Oxide 250 mg PO DAILY 08/15/15 Montelukast [Singulair*] 10 mg PO DAILY 08/15/15 Multivit-Min/FA/Lycopene/Lut [Centrum Silver Tablet] 1 tab PO DAILY 08/15/15 Azithromycin Tab [Zithromax*] 250 mg PO DAILY #5 tab 08/17/15 Diltiazem HCl [Diltiazem 24Hr Cd] 300 mg PO DAILY 08/17/15 Losartan Potassium [Cozaar] 100 mg PO DAILY 08/17/15 predniSONE [Prednisone*] 20 mg PO BID #30 tab 08/17/15 - Past Medical/Surgical History Diabetic: No -: asthma -: HTN -: hysterectomy -: lazaro -: tonsilectomy -: bladder sling -: Aortic valve replacement surgery - Family History Mother -: Heart disease, Diabetes, Stroke Father -: Heart disease Notes: rheumatic fever as a child Brother -: Diabetes Sister -: Cancer Notes: cancer on her neck - Social History Smoking Status: Never smoker Alcohol use: No CD- Drugs: No Caffeine use: No Place of Residence: Home Review of Systems Respiratory: Cough, Shortness of Breath, SOB with Excertion Physical Examination - Physical Exam General: Alert, In no apparent distress, Oriented x3, Cooperative HEENT: Atraumatic, Normocephalic, PERRLA Neck: Supple, 2+ carotid pulse no bruit, JVD not distended Respiratory: Normal air movement, Expiratory wheezes Cardiovascular: Normal pulses, Regular rate/rhythm, Normal S1 S2 Gastrointestinal: Normal bowel sounds, Soft and benign, Non-distended, No ascites Musculoskeletal: No clubbing, No swelling Integumentary: No rashes, No breakdown, No significant lesion Neurological: Normal speech, Normal strength at 5/5 x4 extr, Sensation intact - Studies Laboratory Data (last 24 hrs) 07/07/24 07/07/24 00:55 00:55 WBC 12.30 H Hgb 9.1 L Hct 27.6 L Plt Count 228 Sodium 130 L Potassium 3.8 BUN 27 H Creatinine 0.85 Glucose 279 H Microbiology Data (last 24 hrs): 07/07/24 00:55 Nasopharnyx Influenza Type A Antigen Screen - Final 07/07/24 00:55 Nasopharnyx Influenza Type B Antigen Screen - Final Assessment and Plan - Problems (Diagnosis) (1) Asthma exacerbation Onset Date: 08/17/15 Current Visit: No Status: Acute - Plan Impression Acute asthma exacerbation Acute diastolic CHF exacerbation Hypertension Plan Acute asthma exacerbationDuoNebs every 4 and as needed Start Solu-Medrol 60 every 12 Obtain sputum for culture and sensitivity Start empirical antibiotics Wean O2 as tolerated Acute diastolic CHF exacerbationIV Lasix 40 every 8 Monitor intake and output Wean O2 Follow pro-BnP daily follow chest x- ray-mild pul edema seen on imaging , follow reading HTNresume home meds Hyperglycemiano prior history of DM, obtain hemoglobin A1c Accu-Cheks every 6 add insulin sliding scale for now DVT prophylaxis subcutaneous Dispositionpossible home in 2 to 3 days Advanced directivefull code - Advance Directives Does patient have a Living Will: No Does patient have a Durable POA for Healthcare: No Physician Review: Patient Assessed, Agree with Above Assessment and Plan Time Spent Managing Pts Care (In Minutes): 65
[2024-07-07] MEDS ORDERED: ACETAMINOPHEN 500 MG TAB PO PRN (02:07)
[2024-07-07] MEDS ORDERED: ONDANSETRON 4 MG/2 ML VIAL IV PRN (02:07)
[2024-07-07] MEDS ORDERED: NA CHLORIDE 0.9% 250 ML ONE (02:10)
[2024-07-07] MEDS ORDERED: AZITHROMYCIN 500 MG INJ IVPB ONE (02:10)
[2024-07-07] MEDS ORDERED: BENZONATATE 100 MG CAP PO PRN (02:15)
[2024-07-07] MEDS ORDERED: DIPHENHYDRAMINE 50 MG/ML VIAL ONE (02:23)
[2024-07-07] MEDS: FUROSEMIDE 40 MG/4 ML VIAL IV SCH (03:00)
[2024-07-07] MEDS: IPRATROPIUM BROM 0.5MG/2.5ML NEB SCH (03:00)
[2024-07-07] MEDS: ALBUTEROL 2.5 MG/3 ML NEB SOL NEB SCH (03:00)
[2024-07-07 03:15] VITALS: BMI 24.7
[2024-07-07] MEDS: METHYLPREDNISOLONE 40 MG INJ IV SCH (05:51)
[2024-07-07] MEDS: INSULIN REGULAR (HUMAN) 100 UNIT/ML SQ SCH (05:51)
[2024-07-07 06:34] LABS: Magnesium 2.3 mg/dL (1.6-2.4); Thyroid Stimulating Hormone 1.53 uIU/mL (0.358-3.740)
[2024-07-07] MEDS: ASPIRIN 81 MG CHEWABLE TABLET PO SCH (08:07)
[2024-07-07] MEDS: FAMOTIDINE 20 MG TAB PO SCH (08:07)
[2024-07-07] MEDS: CEFEPIME 1 GM in NA CHLORIDE 0.9% 100 ML IV SCH (08:07)
[2024-07-07] MEDS: ENOXAPARIN 40 MG/0.4 ML SQ SCH (08:08)
[2024-07-07] MEDS ORDERED: CEFEPIME 1 GM in NA CHLORIDE 0.9% 100 ML IV SCH (09:00)
[2024-07-07] MEDS ORDERED: FAMOTIDINE 20 MG TAB PO SCH (09:00)
--- NOTE | 2024-07-07 11:26 | P.PN ---
Date of Service: 07/07/24 Pt seen and examined. Pt is an 88yo female with past medical history of asthma, hypertension, aortic valve replacement, diastolic CHF with last echo showing EF of 82%, presented with shortness of breath A/P: Acute asthma exacerbation: Will continue oxygen, prn albuterol and steroid. Acute diastolic CHF exacerbation: Will continue lasix 40mg iv TID, strict I/O and daily. BNP is 1762. Hypertension: Will continue home med. Hyperglycemia: Pt denies any prior history of DM. Will continue accuchek, SSI and ADA diet. Obtain hemoglobin A1c DVT prophylaxis subcutaneous Dispo:
[2024-07-07] MEDS: NITROGLYCERIN 0.4 MG/TAB SL ONE (16:58)
[2024-07-07] MEDS: MORPHINE 2 MG/ML SYR IV PRN (18:12)
[2024-07-07] MEDS ORDERED: HEPARIN/D5W 25,000 UNIT/500 ML BAG IV SCH ×2 (19:00→20:00)
[2024-07-07] MEDS: HEPARIN/D5W 25,000 UNIT/500 ML BAG IV SCH (20:14)
--- NOTE | 2024-07-07 21:26 | P.PN ---
Date of Service: 07/07/24 Patient admitted for asthma/CHF exacerbation noted with new onset chest pain to the. Has been on DuoNebs as well as steroids. Troponin noted elevated at 7089, patient started on heparin drip after discussion with cardiology. Patient still continued to have persistent chest pain this evening, started on Nitropatch as well as metoprolol for elevated heart rate to the 170s. Suspected acute non- STEMI causing symptoms. Obtain repeat chest x-ray, do serial sets of troponin. Will we will continue to monitor. Patient now wishing to be DNR/DNI. Will transfer to ICU for close monitoring
--- NOTE | 2024-07-07 22:17 | RAD REPORT ---
EXAM DESCRIPTION: RAD - Chest Single View - 07/07/2024 10:10 pm CLINICAL HISTORY: SOB , F/U PUL EDEMA COMPARISON: 07/07/2024 FINDINGS: Lines: None. Lungs: Diffuse prominence of the pulmonary interstitium which has improved but not resolved compared with earlier in the day. Pleural: Small left pleural effusion. Cardiac: Cardiomegaly. Mediastinum: Within normal limits. Bones: No acute fractures. Sternotomy. Other: None IMPRESSION: Improved, but not resolved, pulmonary edema compared with the chest radiograph from [facility] in the day.
[2024-07-07] MEDS: NITROGLYCERIN 0.2 MG/HR (5 MG) PATCH TD SCH (22:29)
[2024-07-07] MEDS: METOPROLOL TAR 25 MG TAB PO SCH (22:30)
[2024-07-07 23:32] LABS: Troponin High Sensitivity 11951.1 pg/mL (<58.9)
[2024-07-08 00:40] LABS: Magnesium 2.4 mg/dL (1.6-2.4)
[2024-07-08 05:57] LABS: Absolute Basophils 0.1 K/uL (0-0.5); Absolute Monocytes 1.2 K/uL (0.1-1.3); Absolute Neutrophil 17.9 K/uL (1.8-8.0); Basophils % 0.4 % (0-1.3); Hematocrit 26.2 % (36.0-45.0); Hemoglobin 8.4 g/dL (12.0-15.0); Lymphocytes % 4.9 % (15.3-44.8); MCH 29.8 pg (27.0-35.0); MCV 93.3 fL (80-100); MPV 11.6 fL (7.6-11.3); Monocytes % 5.7 % (3.3-12.3); Platelets 229 thou/uL (152-406); RBC Red Blood Cell Count 2.81 M/uL (3.86-4.86); Red Cell Distribution Width 17.6 % (12.1-15.2)
[2024-07-08 06:28] LABS: Albumin/Globulin Ratio 0.8 (1.1-1.8); Anion Gap 12.5 mEq/L (5.0-15.0); Bilirubin Total 0.5 mg/dL (0.2-1.0); Globulin 3.6 g/dL (2.3-3.5); Potassium 3.5 mEq/L (3.5-5.1); Protein, Total 6.6 g/dL (6.4-8.2)
[2024-07-08 06:39] LABS: Troponin High Sensitivity 33545.5 pg/mL (<58.9)
[2024-07-08 09:39] LABS: Anisocytosis 1+; Blood Morphology Comment NOTED (NOT SEEN); Platelet Estimate ADEQ; Platelets, Giant PRESENT; Polychromasia 1+; White Blood Cell Scan OK (OK)
[2024-07-08] MEDS: CEFEPIME 1 GM in NA CHLORIDE 0.9% 100 ML IV SCH (11:00)
--- NOTE | 2024-07-08 11:11 | P.PN ---
Subjective Date of Service: 07/08/24 Chief Complaint: Shortness of breath Pt is resting comfortably in bed. She had bilateral arm pain and neck pain on 07/07/24 due to NSTEMI. Troponin is very elevated. Pt is getting heparin drip. Waiting for pt and her family to give consent for Cardiac cath. Cardiology is following. Review of Systems General: Unremarkable Eyes: Unremarkable ENT: Unremarkable Respiratory: Unremarkable Cardiovascular: Chest Pain, Unremarkable Gastrointestinal: Unremarkable Genitourinary: Unremarkable Musculoskeletal: Unremarkable Integumentary: Unremarkable Neurological: Unremarkable Lymphatics: Unremarkable Physical Examination - Vital Signs Temperature: 98.0 F Blood Pressure: 91/50 Pulse: 103 Respirations: 20 Pulse Ox (%): 94 - Physical Exam General: Alert, In no apparent distress, Oriented x3 HEENT: Atraumatic, Normocephalic, PERRLA Neck: Supple, 2+ carotid pulse no bruit, JVD not distended Respiratory: Clear to auscultation bilaterally, Normal air movement Cardiovascular: No edema, Normal pulses, Regular rate/rhythm Capillary refill: <2 Seconds Gastrointestinal: Normal bowel sounds, Soft and benign, Non-distended Musculoskeletal: No clubbing, No swelling, No contractures Integumentary: No rashes, No breakdown, No significant lesion Neurological: Normal gait, Normal speech, Normal strength at 5/5 x4 extr Lymphatics: No axilla or inguinal lymphadenopathy Assessment And Plan - Plan NSTEMI: chests pain has resolved. Continue [place]p. [place] [id number] <- [id number] <- 1787. Cardiology is following. Waiting for pt and her family members to give consent for cardiac cath. Acute asthma exacerbation: Will continue oxygen, prn albuterol and steroid. Possible Pneumonia: Will continue cefepime and f/u blood cx. Acute diastolic CHF exacerbation: Will continue lasix 40mg iv TID, strict I/O and daily. BNP is 1762. Hypertension: Will continue home med. Hyperglycemia: Pt denies any prior history of DM. Will continue accuchek, SSI and ADA diet. Obtain hemoglobin A1c DVT prophylaxis: heparin drip Dispo: Pending hospital course. Physician Review: Patient Assessed, Agree with Above Assessment and Plan
[2024-07-08] MEDS ORDERED: HEPA 1000U/500MLS 2,000 UNIT/1,000 ML BAG IV ONE (11:13)
[2024-07-08] MEDS ORDERED: LIDOCAINE 1% 20 ML MDV ONE (11:13)
[2024-07-08] MEDS ORDERED: MIDAZOLAM HCL 2 MG/2 ML INJ ONE (11:14)
[2024-07-08] MEDS ORDERED: FENTANYL CITR 100 MCG/2 ML ONE (11:14)
[2024-07-08] MEDS ORDERED: ATROPINE SULF 1 MG/10 ML SYR IV ONE (11:14)
[2024-07-08] MEDS ORDERED: HEPARIN 5000 UNIT/ML 1 ML VIAL ONE (11:14)
[2024-07-08] MEDS ORDERED: ASPIRIN 325 MG TAB ONE (11:15)
[2024-07-08] MEDS ORDERED: TICAGRELOR 90 MG TABLET PO ONE (11:15)
[2024-07-08] MEDS ORDERED: HEPARIN 10,000 UNIT/10 ML VIAL IV ONE ×2 (11:15→13:17)
[2024-07-08] MEDS ORDERED: NITROGLYCERIN/D5W 50 MG/250 ML BTL IV ONE (11:15)
[2024-07-08] MEDS ORDERED: CLOPIDOGREL 75 MG TABLET ONE (11:15)
[2024-07-08] MEDS ORDERED: NA CHLORIDE 0.9% 500 ML ONE (11:26)
--- NOTE | 2024-07-08 17:10 | P.CNS ---
Date of Consult: 07/08/24 Chief Complaint: Shortness of breath History of Present Illness: Patient with PMH of Bioprosthetic aortic valve, HTN, Diastolic heart failure, presented with bilateral arm pain and chest pressure sensation that has been going for the last 3 days, also complain of worsening SOB, denies palpitations, no syncope. Allergies codeine Allergy (Unknown, Verified 08/15/15 03:01) dizzy epinephrine Allergy (Unknown, Verified 08/15/15 03:01) Hives propoxyphene HCl [From Darvon] Allergy (Unknown, Verified 08/15/15 03:01) Unknown Home medications list reviewed: Yes Home Medications: Albuterol Inhaler [Ventolin Inhaler*] 2 puff IN PRN PRN 08/15/15 Albuterol Sulfate [Albuterol Sulfate 0.083% Neb Soln] 3 mg IN PRN PRN 08/15/15 Aspirin Chewable [Aspirin Chewable*] 81 mg PO DAILY 08/15/15 B Complex with Vitamin C [Super B Complex with C] 1 tab PO DAILY 08/15/15 Docosahexanoic AC/Epa [Fish Oil 1,000 MG*] 1,200 mg PO DAILY 08/15/15 Fluticasone/Salmeterol [Advair 100/50 Diskus*] 50 mcg IN DAILY 08/15/15 Guaifenesin [Mucinex] 600 mg PO BID PRN 08/15/15 Ipratropium Ranger 0.5 mg IN PRN 08/15/15 Losartan Potassium 100 mg PO DAILY 08/15/15 Magnesium Oxide 250 mg PO DAILY 08/15/15 Montelukast [Singulair*] 10 mg PO DAILY 08/15/15 Multivit-Min/FA/Lycopene/Lut [Centrum Silver Tablet] 1 tab PO DAILY 08/15/15 Azithromycin Tab [Zithromax*] 250 mg PO DAILY #5 tab 08/17/15 Diltiazem HCl [Diltiazem 24Hr Cd] 300 mg PO DAILY 08/17/15 Losartan Potassium [Cozaar] 100 mg PO DAILY 08/17/15 predniSONE [Prednisone*] 20 mg PO BID #30 tab 08/17/15 - Past Medical/Surgical History Diabetic: No -: asthma -: HTN -: hysterectomy -: lazaro -: tonsilectomy -: bladder sling -: Aortic valve replacement surgery - Family History Mother Medical History: Heart disease, Diabetes, Stroke Father Medical History: Heart disease Notes: rheumatic fever as a child Brother Medical History: Diabetes Sister Medical History: Cancer Notes: cancer on her neck - Social History Alcohol use: No CD- Drugs: No Caffeine use: No Place of Residence: Home Review of Systems 10-point ROS is otherwise unremarkable Physical Examination Temp Pulse Resp BP Pulse Ox 97.0 F 104 H 16 98/48 L 94 07/08/24 16:00 07/08/24 16:15 07/08/24 16:15 07/08/24 16:15 07/08/24 16:00 General: Alert, In no apparent distress HEENT: Atraumatic, PERRLA, Mucous membr. moist/pink, EOMI, Sclerae nonicteric Neck: Supple, 2+ carotid pulse no bruit, No LAD, Without JVD or thyroid abnormality Respiratory: Clear to auscultation bilaterally, Normal air movement Cardiovascular: Regular rate/rhythm, Normal S1 S2 Gastrointestinal: Normal bowel sounds, No tenderness Musculoskeletal: No tenderness Integumentary: No rashes Neurological: Normal gait, Normal speech, Normal tone, Normal affect Lymphatics: No axilla or inguinal lymphadenopathy - Problems (1) NSTEMI (non-ST elevated myocardial infarction) Current Visit: Yes Status: Acute Plan: Coronary angiogram done that shown significant proximal LAD disease s/p PCI with Synergy 3.0x24 mm KYLEIGH ASA 81 mg daily for life. Brilinta 90 mg po BID for 12 months Lipitor 40 mg daily (2) Acute on chronic diastolic heart failure Current Visit: Yes Status: Acute Plan: Continue Lasix 40 mg IV TID while she is here at the hospital then sswitch to lasix 40 mg po daily on discharge. continue lopressor 25 mg po BID Continue Losartan 25 mg daily (3) Pneumonia Current Visit: Yes Status: Acute Plan: ABX per primary team (4) H/O heart valve replacement with bioprosthetic valve Current Visit: Yes Status: Acute Plan: Echo shows normal functioning valve.
[2024-07-08] MEDS: TICAGRELOR 90 MG TABLET PO SCH (21:12)
[2024-07-08] MEDS: ATORVASTATIN 40 MG TAB PO SCH (21:12)
--- NOTE | 2024-07-09 01:06 | OP ---
Date of Procedure: 07/08/2024 Surgeon: Nikolas Mann Procedures Performed: 1.Selective coronary angiogram. 2.PCI of the LAD with Synergy 3.0 x 24 mm drug-eluting stent. Indication For Procedure: [id number]. Complications: None. Estimated Blood Loss: Less than 50 cc. Sedation Time: 35 minutes with 2 of Versed and 50 of fentanyl. Access: Right radial, closed by TR band. Description Of Procedure: After risks, benefits, and alternatives were explained to the patient, pat ient agreed to proceed with the procedure and signed informed consent. The patient was brought back to the lab engineer, prepped and draped in a sterile fashion. Time-out was performed. Sedation was admi nistered. Next, an ultrasound-guided right radial access was obtained. A 6-Tamazight sheath was introd uced without any difficulty. Barron 4 catheter was advanced over J-wire for the selective coronary an giogram of the left and right coronary systems. The catheter was later exchanged for an EBU 3.0 mm g uide. Heparin was administered. ACT was therapeutic. Runthrough wire was advanced across the LAD. Pre-dilated the proximal LAD lesions with an NC 2.5 mm balloon. Next, Synergy 3.0 x 24 mm drug-elut ing stent was placed across the lesion that is postdilated with an NC 3.5 mm balloons at 14 atmospher es. Final angiogram shows JORI-3 flow. At the end of procedure, catheter was removed over a J-wire. Sheath was removed and TR band applied. Hemostasis was achieved and the patient was moved back to Recovery in stable condition. Findings: 1.Left main normal. 2.LAD: Proximal diffuse 90% disease with focal 95% disease. Status post PCI with Synergy 3.0 x 24 mm drug-eluting stents, then [id number] mild luminal irregularities. Gives a diagonal 1 with mild luminal irregularities, diagonal 2 with mild luminal irregularities. 3.Left circumflex: Proximal mild LI, then gives OM1 that is small with 90% ostial disease and then OM2 that got proximal 60% disease. Then gives the left PDA that got mild LI. 4.RCA: Small artery, diffuse mild luminal irregularities. Assessment And Plan: 1.Significant proximal LAD disease, status post PCI with Synergy 3.0 x 24 mm drug-eluting stent. 2.Significant OM1 disease that is small artery. Medical management. 3.Moderate to significant OM2 disease that will need an outpatient stress test. Plan: 1.Aspirin 81 mg daily for life. 2.Brilinta 180, x1 was given in the lab engineer; continue Brilinta 90 mg p.o. b.i.d. for 12 months. 3.Continue aggressive medical treatment for CAD. KRISTEN/KRISTA Voice ID: [id number] Report ID: [id number]
[2024-07-09 06:02] LABS: Absolute Lymphocytes (CBC) 0.3 K/uL (0.7-4.9); Absolute Monocytes 1.4 K/uL (0.1-1.3); Absolute Neutrophil 20.8 K/uL (1.8-8.0); Basophils % 0.1 % (0-1.3); Hematocrit 25.3 % (36.0-45.0); Hemoglobin 8.1 g/dL (12.0-15.0); Lymphocytes % 1.4 % (15.3-44.8); MCHC 32.2 g/dL (32.0-36.0); MCV 93.2 fL (80-100); MPV 11.8 fL (7.6-11.3); Monocytes % 6.1 % (3.3-12.3); Neutrophils % 92.4 % (41.7-73.7); Platelets 227 thou/uL (152-406); RBC Red Blood Cell Count 2.71 M/uL (3.86-4.86); Red Cell Distribution Width 17.5 % (12.1-15.2)
[2024-07-09 06:23] LABS: Anion Gap 12.3 mEq/L (5.0-15.0); Magnesium 2.9 mg/dL (1.6-2.4); Potassium 3.3 mEq/L (3.5-5.1)
--- NOTE | 2024-07-09 07:42 | P.PN ---
Date of Service: 07/09/24 Subjective Date of Service: 07/08/24 Chief Complaint: Shortness of breath S/P PCI, plan for PT eval today for DC planning Review of Systems 10 point ROS Unremarkable unless listed in HPI Physical Examination - Vital Signs reviewed - Physical Exam General: Alert, In no apparent distress, Oriented x3 HEENT: Atraumatic, Normocephalic, PERRLA Neck: Supple, 2+ carotid pulse no bruit, JVD not distended Respiratory: Clear to auscultation bilaterally, Normal air movement Cardiovascular: No edema, Normal pulses, Regular rate/rhythm Capillary refill: <2 Seconds Gastrointestinal: Normal bowel sounds, Soft and benign, Non-distended Musculoskeletal: No clubbing, No swelling, No contractures Integumentary: No rashes, No breakdown, No significant lesion Neurological: Normal gait, Normal speech, Normal strength at 5/5 x4 extr Lymphatics: No axilla or inguinal lymphadenopathy Assessment And Plan - Plan Stemi NSTEMI: chests pain has resolved. Continue heparin drip. Troponin trend s [id number] <- [id number] <- 1787. Cardiology is following. Waiting for pt and her family members to give consent for cardiac cath. 07/08 PCI on brilinta Per cardiolgoy ASA 81 mg daily for life. Brilinta 90 mg po BID for 12 months Lipitor 40 mg daily continue lopressor 25 mg po BID (lowered to 12.5 po bid) soft BP Continue Losartan 25 mg daily Acute hypoxic respiratory failure can Mohamud to asthma exacerbation versus decompensated heart failure Acute asthma exacerbation: Will continue oxygen, prn albuterol and steroid. Eval for home 02 Possible Pneumonia: Will continue cefepime and f/u blood cx. Solu-Medrol, wean Acute diastolic CHF exacerbation: Will continue lasix 40mg iv TID, strict I/O and daily. BNP is 1762. Change Lasix to twice daily hypoKalemia Trend electrolytes replace as needed Hypertension: Will continue home med. Hyperglycemia: Pt denies any prior history of DM. Will continue accuchek, SSI and ADA diet. Obtain hemoglobin A1c DVT prophylaxis: heparin drip Dispo: Pending hospital course. Time spent with patient 30 minutes <Ila Traore - Last Filed: 07/09/24 19:03> Chart has been reviewed. Events of the last 24 hours have been noted. Case discussed with SUN. I performed a substantial part of the MDM during this patient's care today. I personally made or approved the documented management plan and acknowledge its risk of complications. I agree with the findings and documentation provided in the SUN's notes <Zach Gutierres - Last Filed: 08/01/24 02:34>
--- NOTE | 2024-07-09 08:10 | ECHO ---
HEIGHT: 5 ft 1 in WEIGHT: 131 lb 0 oz DATE OF STUDY: 07/08/[address]: 2-DIMENSIONAL: YES M.MODE: YES DOPPLER: YES COLOR FLOW: YES TDS: PORTABLE: YES DEFINITY: BUBBLE STUDY: DIAGNOSIS: CEREBRAL VASCULAR ACCIDENT/ VEGETATIONS CARDIAC HISTORY: CATHERIZATION: YES SURGERY: YES PROSTHETIC VALVE: PACEMAKER: MEASUREMENTS (cm) DIASTOLIC (NORMALS) SYSTOLIC (NORMALS) IVSd 0.9 (0.6-1.2) LA Diam 4.5 (1.9-4.0) LVEF 55-60% LVIDd 4.4 (3.5-5.7) LVIDs 3.5 (2.0-3.5) %FS 21% LVPWd 0.7 (0.6-1.2) Ao Diam 2.1 (2.0-3.7) 2 DIMENSIONAL ASSESSMENT: RIGHT ATRIUM: NORMAL LEFT ATRIUM: NORMAL RIGHT VENTRICLE: NORMAL LEFT VENTRICLE: NORMAL TRICUSPID VALVE: SEVERE TRICUSPID REGURGITATION MITRAL VALVE: SEVERE MITRAL ANNULAR CALCIFICATION PULMONIC VALVE: MILD PULMONIC REGURGITATION AORTIC VALVE: BIOPROSTHETIC PERICARDIAL EFFUSION: NONE AORTIC ROOT: LEFT VENTRICULAR WALL MOTION: NORMAL DOPPLER/COLOR FLOW: DIASTOLIC DYSFUNCTION COMMENTS: 1. NORMAL LEFT VENTRICULAR SYSTOLIC FUNCTION, EJECTION FRACTION 55-60%, NORMAL WALL MOTION 2. ASYMMETRIC SEVERE BASAL SEPTAL HYPERTROPHY 3. SEVERE TRICUSPID REGURGITATION, SEVERE PULMONARY HYPERTENSION (RIGHT VENTRICULAR SYSTOLIC PRESSURE GREATER THAN 60 mmHg) 4. SEVERE MITRAL ANNULAR CALCIFICATION WITH MODERATE MITRAL REGURGITATION 5. NORMAL FUNCTIONING BIOPROSTHETIC AORTIC VALVE (DOPPLER VELOCITY INDEX 0.48) TECHNOLOGIST: CARLOS ENRIQUE [facility]
--- NOTE | 2024-07-09 14:19 | RAD REPORT ---
EXAM DESCRIPTION: RAD - Chest Single View - 07/09/2024 2:00 pm CLINICAL HISTORY: The patient is 88 years old and is Female; COUGH; Bed Name: 2; TECHNIQUE: Frontal view of the chest. COMPARISON: No relevant prior studies available. FINDINGS: Lungs: Prominent interstitium suggesting pulmonary edema. Pleural space: Small pleural effusions. Heart: Mild cardiomegaly. Mediastinum: Normal contours. Bones/joints: Median sternotomy wires. IMPRESSION: Probable pulmonary edema and small pleural effusions. Electronically signed by: Rozina Gordon MD 07/07/2024 03:04 AM CDT RP Due to temporary technical issues with the PACS/Fluency reporting system, reports are being signed by the in house radiologists without review as a courtesy to insure prompt reporting. The interpreting radiologist is fully responsible for the content of the report.
--- NOTE | 2024-07-09 17:19 | RAD REPORT ---
EXAM DESCRIPTION: RAD - Barium Swallow Modified - 07/09/2024 2:29 pm CLINICAL HISTORY: Swallowing difficulty COMPARISON: None. TECHNIQUE: The patient was given liquid, semi-solid and solid forms of barium. Lateral view fluorosc opic imaging was performed in conjunction with speech pathology service. Fluoro time: 3:18 minutes. Skin dose: 18.53 mGy FINDINGS: No evidence of kathy aspiration or laryngeal penetration. Sporadic instances of mild infer ior pharyngeal constrictor muscles prominence. IMPRESSION: No evidence of kathy aspiration or laryngeal penetration. Please refer to speech for add itional details.
--- NOTE | 2024-07-09 17:19 | P.PN ---
Subjective Date of Service: 07/09/24 Chief Complaint: Shortness of breath Subjective: No new changes, No C/O voiced, Tolerating diet, Ambulating, Improving Review of Systems 10-point ROS is otherwise unremarkable Physical Examination - Vital Signs Temperature: 98.0 F Blood Pressure: 100/59 Pulse: 108 Respirations: 16 Pulse Ox (%): 98 - Physical Exam General: Alert, In no apparent distress HEENT: Atraumatic, PERRLA, EOMI Neck: Supple, JVD not distended Respiratory: Clear to auscultation bilaterally, Normal air movement Cardiovascular: Regular rate/rhythm, Normal S1 S2 Gastrointestinal: Normal bowel sounds, No tenderness Musculoskeletal: No tenderness Integumentary: No rashes Neurological: Normal speech, Normal tone, Normal affect Lymphatics: No axilla or inguinal lymphadenopathy - Studies Medications List Reviewed: Yes Assessment And Plan - Current Problems (Diagnosis) (1) NSTEMI (non-ST elevated myocardial infarction) Current Visit: Yes Status: Acute Plan: Coronary angiogram done that shown significant proximal LAD disease s/p PCI with Synergy 3.0x24 mm KYLEIGH ASA 81 mg daily for life. Brilinta 90 mg po BID for 12 months Lipitor 40 mg daily (2) Acute on chronic diastolic heart failure Current Visit: Yes Status: Acute Plan: Continue Lasix 40 mg IV TID while she is here at the hospital then sswitch to lasix 40 mg po daily on discharge. continue lopressor 25 mg po BID Continue Losartan 25 mg daily (3) Pneumonia Current Visit: Yes Status: Acute Plan: ABX per primary team (4) H/O heart valve replacement with bioprosthetic valve Current Visit: Yes Status: Acute Plan: Echo shows normal functioning valve. Physician Review: Patient Assessed, Agree with Above Assessment and Plan
--- NOTE | 2024-07-09 17:53 | EKG ---
Test Date: 2024-07-07 Test Time: 01:03:38 Driller'S Assistant: TRINI MEASUREMENT RESULTS: Intervals: Rate: 97 VT: 170 QRSD: 146 QT: 400 QTc: 508 [place]: P: 60 VT: 170 QRS: 95 T: 61 INTERPRETIVE STATEMENTS: Normal sinus rhythm Right bundle branch block Abnormal ECG Compared to ECG 06/06/2024 13:52:48 No significant changes Electronically Signed On 07-09-24 17:48:10 CDT by Nikolas Mann
[2024-07-09] MEDS: MAGNESIUM SULFATE 1 gm IVPB 1 GM/100 ML BAG IV ONE (19:12)
[2024-07-09] MEDS: POTASSIUM 25 MEQ EFFERV TAB PO ONE (21:03)
[2024-07-10] MEDS: METHYLPREDNISOLONE 40 MG INJ IV SCH (00:08)
[2024-07-10] MEDS: METOPROLOL TAR 25 MG TAB PO SCH (06:00)
[2024-07-10 06:15] LABS: Absolute Lymphocytes (CBC) 0.2 K/uL (0.7-4.9); Absolute Neutrophil 14.8 K/uL (1.8-8.0); Basophils % 0.1 % (0-1.3); Hematocrit 23.8 % (36.0-45.0); Hemoglobin 7.9 g/dL (12.0-15.0); Lymphocytes % 1.5 % (15.3-44.8); MCHC 32.9 g/dL (32.0-36.0); MCV 91.2 fL (80-100); MPV 11.2 fL (7.6-11.3); Monocytes % 6.4 % (3.3-12.3); Nucleated Red Blood Cells % 0.1 % (0-0); Platelets 229 thou/uL (152-406); RBC Red Blood Cell Count 2.61 M/uL (3.86-4.86)
[2024-07-10 06:31] LABS: Anion Gap 7.8 mEq/L (5.0-15.0); Magnesium 2.5 mg/dL (1.6-2.4); Potassium 2.8 mEq/L (3.5-5.1)
--- NOTE | 2024-07-10 08:47 | P.DS ---
Admission Date: 07/07/24 Discharge Date: 07/14/24 Reason for Admission: Shortness of breath Brief History of Present Illness: 88-year-old female with past medical history of asthma, hypertension, aortic valve replacement, diastolic CHF with last echo showing EF of 82%, presented today after developing shortness of breath this evening. Patient admits to some wheezing. She feels symptoms is due to asthma exacerbation. She had called EMS. On arrival of EMS patient received breathing treatment with minimal response. She presented to the ED. On arrival in the ED vital signs were stable, satting at 100% on 2 L nasal cannula, afebrile, COVID screen was negative, serum sodium low at 130, glucose elevated at 279, WBC elevated at 12.9 chest x-ray pending , proBNP elevated at greater than 1700,. Patient has been admitted for presumed asthma exacerbation versus CHF exacerbation - Physical Exam General: Alert, In no apparent distress, Oriented x3, Cooperative HEENT: Atraumatic, Normocephalic, PERRLA Neck: Supple, 2+ carotid pulse no bruit, JVD not distended Respiratory: Normal air movement, unlabored Cardiovascular: Normal pulses, Regular rate/rhythm, Normal S1 S2 Gastrointestinal: Normal bowel sounds, Soft and benign, Non-distended, No ascites Musculoskeletal: No clubbing, No swelling Integumentary: No rashes, No breakdown, No significant lesion Neurological: Normal speech, Normal strength at 5/5 x4 extr, Sensation intact Hospital Course: 88-year-old female with past medical history of asthma, hypertension, aortic valve replacement, diastolic CHF with last echo showing EF of 82%, presented today after developing shortness of breath this evening. Patient admits to some wheezing. Treated with steroids, albuterol. History of acute on chronic heart failure, was treated with diuretics. She was evaluated by cardiology. She is status post coronary angiogram with stent placement, she will need to continue Brilinta twice daily for 1 year. Aspirin for life. Is tolerating diet, plan to discharge home, follow-up with cardiology after discharge, follow-up with primary care after discharge. Assessment Pneumonia /asthma exacerbation, treated with steroids, nebulizers, antibiotics Elevated troponin, Coronary angiogram done that shown significant proximal LAD disease 07/08 s/p PCI with Synergy 3.0x24 mm KYLEIGH History of heart valve replacement A-fib RVR started on amiodarone p.o. Echo COMMENTS: 1. NORMAL LEFT VENTRICULAR SYSTOLIC FUNCTION, EJECTION FRACTION 55-60%, NORMAL WALL MOTION 2. ASYMMETRIC SEVERE BASAL SEPTAL HYPERTROPHY 3. SEVERE TRICUSPID REGURGITATION, SEVERE PULMONARY HYPERTENSION (RIGHT VENTRICULAR SYSTOLIC PRESSURE GREATER THAN 60 mmHg) 4. SEVERE MITRAL ANNULAR CALCIFICATION WITH MODERATE MITRAL REGURGITATION 5. NORMAL FUNCTIONING BIOPROSTHETIC AORTIC VALVE (DOPPLER VELOCITY INDEX 0.48) Discharge medication ASA 81 mg daily for life. Brilinta 90 mg po BID for 12 months Lipitor 40 mg daily continue lopressor 25 mg po BID Continue Losartan 25 mg daily Lasix 40 daily Continue home medicines as previously prescribed GOAL: Clear understanding of disease process INSTRUCTIONS: Physician Discharge Instructions: -Follow-up with cardiology 1 to 2 weeks -Follow-up with primary care -Follow-up with PCP in 1 to 2 weeks -Please call Dr. Gutierres at [phone] if any questions regarding hospital stay -Please call nursing station at [phone] if any nursing or medication questions -Return to the emergency room if symptoms worsen Diet: ADA, low sodium Activity: Fall precautions <Ila Traore - Last Filed: 07/14/24 14:34> Admission Date: 07/07/24 Discharge Date: 08/12/24 Hospital Course: Chart has been reviewed. Events of the last 24 hours have been noted. Case di scussed with [facility]. I performed a substantial part of the MDM during this patient's care today. I personally made or approved the documented management plan and acknowledge its risk of complications. I agree with the findings and documentation provided in the [facility]'s notes <Zach Gutierres - Last Filed: 08/01/24 02:40> Disposition: TRANSFER TO INTERMEDIATE Discharge Condition: GOOD Vital Signs/Physical Exam: Temp Pulse Resp BP Pulse Ox 98.9 F 117 H 16 99/52 L 96 07/10/24 04:00 07/10/24 06:00 07/10/24 04:00 07/10/24 06:00 07/10/24 04:00 Laboratory Data at Discharge: WBC 16.10 thou/uL (4.3-10.9) H 07/10/24 05:48 Hgb 7.9 g/dL (12.0-15.0) L 07/10/24 05:48 Hct 23.8 % (36.0-45.0) L 07/10/24 05:48 Plt Count 229 thou/uL (152-406) 07/10/24 05:48 APTT 37.1 SECONDS (24.3-36.9) H 07/08/24 10:47 Sodium 132 mEq/L (136-145) L 07/10/24 05:48 Potassium 2.8 mEq/L (3.5-5.1) L D 07/10/24 05:48 BUN 38 mg/dL (7-18) H 07/10/24 05:48 Creatinine 0.93 mg/dL (0.55-1.02) 07/10/24 05:48 Glucose 222 mg/dL (74-106) H 07/10/24 05:48 Magnesium 2.5 mg/dL (1.6-2.4) H 07/10/24 05:48 Total Bilirubin 0.5 mg/dL (0.2-1.0) 07/08/24 05:25 AST 109 U/L (15-37) H 07/08/24 05:25 ALT 35 U/L (13-56) 07/08/24 05:25 Alkaline Phosphatase 63 U/L (45-117) 07/08/24 05:25 <Ila Traore - Last Filed: 07/14/24 14:34> Vital Signs/Physical Exam: Temp Pulse Resp BP Pulse Ox 98.2 F 82 16 100/49 L 95 07/14/24 12:00 07/14/24 12:00 07/14/24 12:00 07/14/24 12:00 07/14/24 12:00 Laboratory Data at Discharge: WBC 15.50 thou/uL (4.3-10.9) H 07/14/24 06:48 Hgb 8.2 g/dL (12.0-15.0) L 07/14/24 06:48 Hct 25.0 % (36.0-45.0) L 07/14/24 06:48 Plt Count 217 thou/uL (152-406) 07/14/24 06:48 APTT 37.1 SECONDS (24.3-36.9) H 07/08/24 10:47 Sodium 133 mEq/L (136-145) L 07/14/24 06:48 Potassium 3.9 mEq/L (3.5-5.1) D 07/14/24 06:48 BUN 38 mg/dL (7-18) H 07/14/24 06:48 Creatinine 0.86 mg/dL (0.55-1.02) 07/14/24 06:48 Glucose 149 mg/dL (74-106) H 07/14/24 06:48 Phosphorus 2.9 mg/dL (2.5-4.9) 07/14/24 06:48 Magnesium 2.1 mg/dL (1.6-2.4) 07/14/24 06:48 Total Bilirubin 0.5 mg/dL (0.2-1.0) 07/08/24 05:25 AST 109 U/L (15-37) H 07/08/24 05:25 ALT 35 U/L (13-56) 07/08/24 05:25 Alkaline Phosphatase 63 U/L (45-117) 07/08/24 05:25 <Zach Gutierres - Last Filed: 08/01/24 02:40> Diet: AHA Activity: Fall precautions Time spent managing pt's care (in minutes): 55 <Ila Traore - Last Filed: 07/14/24 14:34> <Zach Gutierres - Last Filed: 08/01/24 02:40> Home Medications: Albuterol Inhaler [Ventolin Inhaler*] 2 puff IN PRN PRN 08/15/15 Albuterol Sulfate [Albuterol Sulfate 0.083% Neb Soln] 3 mg IN PRN PRN 08/15/15 Aspirin Chewable [Aspirin Chewable*] 81 mg PO DAILY 08/15/15 B Complex with Vitamin C [Super B Complex with C] 1 tab PO DAILY 08/15/15 Docosahexanoic AC/Epa [Fish Oil 1,000 MG*] 1,200 mg PO DAILY 08/15/15 Fluticasone/Salmeterol [Advair 100/50 Diskus*] 50 mcg IN DAILY 08/15/15 Guaifenesin [Mucinex] 600 mg PO BID PRN 08/15/15 Ipratropium [place] 0.5 mg IN PRN 08/15/15 Magnesium Oxide 250 mg PO DAILY 08/15/15 Montelukast [Singulair*] 10 mg PO DAILY 08/15/15 Multivit-Min/FA/Lycopene/Lut [Centrum Silver Tablet] 1 tab PO DAILY 08/15/15 Aspirin Chewable [Aspirin Chewable*] 81 mg PO DAILY tab.chew 07/10/24 Atorvastatin Calcium [Lipitor] 40 mg PO BEDTIME #0 tab 07/10/24 Famotidine [Pepcid*] 20 mg PO DAILY tab 07/10/24 Furosemide [Lasix] 40 mg PO DAILY 30 Days #30 tab 07/10/24 Losartan Potassium [Cozaar] 25 mg PO DAILY 30 Days #30 tab 07/10/24 Metoprolol Tartrate [Lopressor*] 12.5 mg PO [id number] 30 Days #60 tab 07/10/24 Ticagrelor [Brilinta*] 90 mg PO BID 30 Days #60 tab 07/10/24 Amiodarone HCl [Cordarone*] 200 mg PO BID #60 tab 07/14/24 Potassium Chloride 20 meq PO DAILY #30 tab 07/14/24 Spironolactone [Aldactone] 25 mg PO 1500 #30 tab 07/14/24 predniSONE [Prednisone*] 20 mg PO DAILY #10 tab 07/14/24 New Medications: Spironolactone [Aldactone] 25 mg PO 1500 #30 tab Ticagrelor [Brilinta*] 90 mg PO BID 30 Days #60 tab Amiodarone HCl [Cordarone*] 200 mg PO BID #60 tab Losartan Potassium [Cozaar] 25 mg PO DAILY 30 Days #30 tab Furosemide [Lasix] 40 mg PO DAILY 30 Days #30 tab Metoprolol Tartrate [Lopressor*] 12.5 mg PO [id number] 30 Days #60 tab Potassium Chloride 20 meq PO DAILY #30 tab predniSONE [Prednisone*] 20 mg PO DAILY #10 tab Physician Discharge Instructions: 88-year-old female with past medical history of asthma, hypertension, aortic valve replacement, diastolic CHF with last echo showing EF of 82%, presented today after developing shortness of breath this evening. Patient admits to some wheezing. Treated with steroids, albuterol. History of acute on chronic heart failure, was treated with diuretics. She was evaluated by cardiology. She is status post coronary angiogram with stent placement in the mid LAD, she will need to continue Brilinta twice daily for 1 year. Aspirin for life. Is tolerating diet, plan to discharge to [facility], follow-up with cardiology after discharge, follow-up with primary care after discharge. 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 Field, and she was informed regarding her care. Assessment: Pneumonia /asthma exacerbation, treated with steroids, nebulizers, antibiotics Elevated troponin, Coronary angiogram done that shown significant proximal LAD disease 07/08 s/p PCI with Synergy 3.0x24 mm KYLEIGH History of heart valve replacement Echo COMMENTS: 1. NORMAL LEFT VENTRICULAR SYSTOLIC FUNCTION, EJECTION FRACTION 55-60%, NORMAL WALL MOTION 2. ASYMMETRIC SEVERE BASAL SEPTAL HYPERTROPHY 3. SEVERE TRICUSPID REGURGITATION, SEVERE PULMONARY HYPERTENSION (RIGHT VENTRICULAR SYSTOLIC PRESSURE GREATER THAN 60 mmHg) 4. SEVERE MITRAL ANNULAR CALCIFICATION WITH MODERATE MITRAL REGURGITATION 5. NORMAL FUNCTIONING BIOPROSTHETIC AORTIC VALVE (DOPPLER VELOCITY INDEX 0.48) 07/11 A-fib RVR -Plavix X300 times1, then 75 daily-07/12-DC Brilinta 07/12 Start amiodarone 200 p.o. twice daily- Continue Eliquis 2.5 p.o. twice daily Stop aspirin in 1 month Continue home medicines as previously prescribed GOAL: Clear understanding of disease process INSTRUCTIONS: Physician Discharge Instructions: -Follow-up with Cardiology 1 to 2 weeks -Follow-up with PCP in 1 to 2 weeks -Please call Dr. Gutierres at [phone] if any questions regarding hospital stay -Please call nursing station at [phone] if any nursing or medication questions -Return to the emergency room if symptoms worsen -LABS: CBC, BMP(especially to monitor potassium level) in 1 week Diet: ADA, low sodium Activity: Fall precautions Followup: Tammi Gonzales FNP [Primary Care Provider] - Nikolas Mann MD [ACTIVE - CAN ADMIT] -
[2024-07-10] MEDS: FUROSEMIDE 40 MG TABLET PO SCH (08:52)
--- NOTE | 2024-07-10 09:03 | P.PN ---
Date of Service: 07/10/24 Subjective Date of Service: 07/08/24 Chief Complaint: Shortness of breath S/P PCI, plan for PT eval today for DC planning Review of Systems 10 point ROS Unremarkable unless listed in HPI Physical Examination - Vital Signs reviewed - Physical Exam General: Alert, In no apparent distress, Oriented x3 HEENT: Atraumatic, Normocephalic, PERRLA Neck: Supple, 2+ carotid pulse no bruit, JVD not distended Respiratory: Clear to auscultation bilaterally, Normal air movement Cardiovascular: No edema, Normal pulses, Regular rate/rhythm Capillary refill: <2 Seconds Gastrointestinal: Normal bowel sounds, Soft and benign, Non-distended Musculoskeletal: No clubbing, No swelling, No contractures Integumentary: No rashes, No breakdown, No significant lesion Neurological: Normal gait, Normal speech, Normal strength at 5/5 x4 extr Lymphatics: No axilla or inguinal lymphadenopathy Assessment And Plan - Plan Stemi NSTEMI: chests pain has resolved. Continue heparin drip. [place]rop[place] s [id number] <- [id number] <- 1787. Cardiology is following. Waiting for pt and her family members to give consent for cardiac cath. 07/08 PCI on brilinta Per cardiolgoy ASA 81 mg daily for life. Brilinta 90 mg po BID for 12 months Lipitor 40 mg daily continue lopressor 25 mg po BID (lowered to 12.5 po bid) soft BP Continue Losartan 25 mg daily UTI P.o. Macrobid Send urine culture Acute hypoxic respiratory failure due to to asthma exacerbation versus decompensated heart failure improving Acute asthma exacerbation: Improved Will continue oxygen, prn albuterol and steroid. Weaned to room air Possible Pneumonia: Will continue cefepime and f/u blood cx. Solu-Medrol, wean Acute diastolic CHF exacerbation: Improved Will continue lasix 40mg iv TID, strict I/O and daily. BNP is 1762. Change Lasix to twice daily hypoKalemia improved Trend electrolytes replace as needed Hypertension: Will continue home med. Hyperglycemia: Pt denies any prior history of DM. Will continue accuchek, SSI and ADA diet. Obtain hemoglobin A1c DVT prophylaxis: heparin drip Dispo: Pending hospital course. Time spent with patient 30 minutes <Ila Traore - Last Filed: 07/10/24 17:34> Chart has been reviewed. Events of the last 24 hours have been noted. Case discussed with [facility]. I performed a substantial part of the MDM during this patient's care today. I personally made or approved the documented management plan and acknowledge its risk of complications. I agree with the findings and documentation provided in the [facility]'s notes <Zach Gutierres - Last Filed: 08/01/24 02:44>
--- NOTE | 2024-07-10 17:02 | EKG ---
Test Date: 2024-07-07 Test Time: 17:22:28 Human Projectile: MEASUREMENT RESULTS: Intervals: Rate: 116 [place]: 154 QRSD: 146 QT: 348 QTc: 483 [place]: P: 45 [place]: 154 QRS: 90 T: 42 INTERPRETIVE STATEMENTS: Sinus tachycardia with occasional premature ventricular complexes Possible Left atrial enlargement Right bundle branch block Abnormal ECG Compared to ECG 07/07/2024 01:03:38 Ventricular premature complex(es) now present Sinus rhythm no longer present Electronically Signed On 07-10-24 16:59:03 CDT by Nikolas Mann
--- NOTE | 2024-07-10 17:02 | EKG ---
Test Date: 2024-07-08 Test Time: 09:05:35 [employer] Officer: BEAR MEASUREMENT RESULTS: Intervals: Rate: 109 SD: 166 QRSD: 148 QT: 392 QTc: 527 [place]: P: 50 SD: 166 QRS: 72 T: 35 INTERPRETIVE STATEMENTS: Sinus tachycardia with premature atrial complexes Right bundle branch block Abnormal ECG Compared to ECG 07/07/2024 17:22:28 Atrial premature complex(es) now present Ventricular premature complex(es) no longer present Electronically Signed On 07-10-24 16:58:55 CDT by Nikolas Mann
[2024-07-10] MEDS: NITROFURAN MACRO 100 MG CAP PO SCH (18:07)
[2024-07-11 04:53] LABS: Absolute Lymphocytes (CBC) 0.2 K/uL (0.7-4.9); Absolute Monocytes 1.3 K/uL (0.1-1.3); Absolute Neutrophil 12.6 K/uL (1.8-8.0); Basophils % 0.2 % (0-1.3); Hematocrit 25.4 % (36.0-45.0); Hemoglobin 8.4 g/dL (12.0-15.0); Lymphocytes % 1.6 % (15.3-44.8); MCH 29.9 pg (27.0-35.0); MCV 90.7 fL (80-100); MPV 11.4 fL (7.6-11.3); Monocytes % 9.1 % (3.3-12.3); Platelets 236 thou/uL (152-406); Red Cell Distribution Width 16.9 % (12.1-15.2)
[2024-07-11 04:59] LABS: Neutrophils % 89.1 % (41.7-73.7)
[2024-07-11 05:16] LABS: Anion Gap 12.8 mEq/L (5.0-15.0); Magnesium 2.1 mg/dL (1.6-2.4); Potassium 2.8 mEq/L (3.5-5.1)
[2024-07-11] MEDS: POTASSIUM 25 MEQ EFFERV TAB PO ONE (06:43)
--- NOTE | 2024-07-11 08:04 | RAD REPORT ---
EXAM DESCRIPTION: Jessica Single View07/11/2024 6:33 am CLINICAL HISTORY: Cough COMPARISON: July 07, 2024 FINDINGS: Calcified granuloma left upper lobe. Mild chronic appearing upper lobe opacities. Remainder of the lungs appear clear of acute infiltrate Heart is mildly enlarged. Postsurgical changes involve the chest Small left pleural effusion appears diminished in size
[2024-07-11] MEDS: METOPROLOL TARTRATE 5 MG/5 ML INJ IV STA (08:26)
[2024-07-11] MEDS: METOPROLOL TARTRATE 5 MG/5 ML INJ IV ONE (08:37)
[2024-07-11] MEDS: METOPROLOL TARTRATE 5 MG/5 ML INJ IV SCH (08:40)
[2024-07-11] MEDS: DIGOXIN 0.25 MG/ML AMP IV ONE (08:45)
[2024-07-11] MEDS: KCL 20 MEQ/100 mL IVPB 20 MEQ/100 ML BAG IV SCH (08:56)
[2024-07-11] MEDS: METHYLPREDNISOLONE 40 MG INJ IV SCH (09:00)
[2024-07-11] MEDS: HYDROCODONE/APAP 5/325 MG TAB PO ONE (09:31)
[2024-07-11] MEDS: LORAZEPAM 0.5 MG TABLET PO ONE (09:31)
[2024-07-11] MEDS: AMIODARONE HCL 150 MG in D5W 100 ML IV ONE (09:45)
[2024-07-11] MEDS: AMIODARONE HCL 900 MG in Dextrose 5%-Water 482 ML IV SCH (09:46)
[2024-07-11] MEDS: NA CHLORIDE 0.9% 250 ML ONE (09:49)
[2024-07-11 16:24] LABS: Magnesium 3.1 mg/dL (1.6-2.4)
--- NOTE | 2024-07-11 17:23 | P.PN ---
Date of Service: 07/11/24 Subjective Date of Service: 07/08/24 Chief Complaint: Shortness of breath Heart rate 130 new-onset A-fib RVR, started on amiodarone drip Review of Systems 10 point ROS Unremarkable unless listed in HPI Physical Examination - Vital Signs reviewed - Physical Exam General: Alert, In no apparent distress, Oriented x3 HEENT: Atraumatic, Normocephalic, PERRLA Neck: Supple, 2+ carotid pulse no bruit, JVD not distended Respiratory: Clear to auscultation bilaterally, Normal air movement Cardiovascular: No edema, Normal pulses, irrRegular rate/rhythm Capillary refill: <2 Seconds Gastrointestinal: Normal bowel sounds, Soft and benign, Non-distended Musculoskeletal: No clubbing, No swelling, No contractures Integumentary: No rashes, No breakdown, No significant lesion Neurological: Normal gait, Normal speech, Normal strength at 5/5 x4 extr Lymphatics: No axilla or inguinal lymphadenopathy Assessment And Plan - Plan 07/11 New onset A-fib RVR heart rate in the 130s to 140s Started on amiodarone drip Cardiology notified Telemetry 07-11Plavix X300 times1, then 75 daily-07/12-DC Brilinta 07/12 Start amiodarone 200 p.o. twice daily- Continue Eliquis 5 p.o. twice daily Stemi improved NSTEMI: chests pain has resolved. Continue heparin drip. [place] s [id number] <- [id number] <- 1787. Cardiology is following. Waiting for pt and her family members to give consent for cardiac cath. 07/08 PCI on brilinta Per cardiolgoy ASA 81 mg daily for life. Brilinta 90 mg po BID for 12 months Lipitor 40 mg daily continue lopressor 25 mg po BID (lowered to 12.5 po bid) soft BP Continue Losartan 25 mg daily UTI improved P.o. Macrobid Send urine culture Acute hypoxic respiratory failure due to to asthma exacerbation versus decompensated heart failure improving Acute asthma exacerbation: Improved Will continue oxygen, prn albuterol and steroid. Weaned to room air Possible Pneumonia: Will continue cefepime and f/u blood cx. Solu-Medrol, wean Acute diastolic CHF exacerbation: Improved Will continue lasix 40mg iv TID, strict I/O and daily. BNP is 1762. Change Lasix to twice daily hypoKalemia improved Trend electrolytes replace as needed Hypertension: Will continue home med. Hyperglycemia: Pt denies any prior history of DM. Will continue accuchek, SSI and ADA diet. Obtain hemoglobin A1c DVT prophylaxis, heparin n.p.o. after cardiac Dispo: Pending hospital course. ICU time with patient 55 minutes <Ila Traore - Last Filed: 07/11/24 17:31> Date of Service: 07/12/24 Chart has been reviewed. Events of the last 24 hours have been noted. Case discussed with [facility]. I performed a substantial part of the MDM during this patient's care today. I personally made or approved the documented management plan and acknowledge its risk of complications. I agree with the findings and documentation provided in the [facility]'s notes <Zach Gutierres - Last Filed: 08/01/24 02:42>
[2024-07-11] MEDS: AMIODARONE HCL 200 MG TAB PO SCH (17:45)
[2024-07-11] MEDS: CLOPIDOGREL 75 MG TABLET PO ONE (17:45)
[2024-07-11 19:11] LABS: Specific Gravity 1.016 (1.005-1.030); Sqamous Epithelial None Seen /HPF (None Seen); Urine Bacteria <20 /HPF (<20); Urine Bilirubin NEGATIVE (Negative); Urine Blood Negative (Negative); Urine Clarity Turbid (Clear); Urine Color Light-Yellow (Yellow); Urine Culture Reflex Order NOT NEEDED; Urine Glucose NEGATIVE (Negative); Urine Ketones NEGATIVE (Negative); Urine Microscopic Reflex YN ORDER UMIC; Urine Nitrite NEGATIVE (Negative); Urine Protein NEGATIVE (Negative); Urine RBC <5 /HPF (None Seen); Urine Urobilinogen Normal (Normal); Urine WBC <5 /HPF (<5); Urine pH 5.5 (5.0-7.0)
[2024-07-11] MEDS ORDERED: ALBUTEROL 2.5 MG/3 ML NEB SOL NEB PRN (21:21)
[2024-07-12 05:40] LABS: Absolute Eosinophils 0.2 K/uL (0-0.5); Absolute Lymphocytes (CBC) 0.6 K/uL (0.7-4.9); Absolute Monocytes 1.9 K/uL (0.1-1.3); Basophils % 0.2 % (0-1.3); Eosinophils % 1.3 % (0-4.4); Hematocrit 21.9 % (36.0-45.0); Hemoglobin 7.2 g/dL (12.0-15.0); Lymphocytes % 4.5 % (15.3-44.8); MCH 29.5 pg (27.0-35.0); MCHC 32.9 g/dL (32.0-36.0); MCV 89.8 fL (80-100); MPV 11.2 fL (7.6-11.3); Monocytes % 13.7 % (3.3-12.3); Neutrophils % 80.3 % (41.7-73.7); Nucleated Red Blood Cells % 0.1 % (0-0); Platelets 199 thou/uL (152-406); RBC Red Blood Cell Count 2.44 M/uL (3.86-4.86); Red Cell Distribution Width 16.8 % (12.1-15.2)
[2024-07-12] MEDS: FLEET ENEMA ADULT PR ONE (06:00)
[2024-07-12 06:27] LABS: Anion Gap 9.1 mEq/L (5.0-15.0); Magnesium 2.5 mg/dL (1.6-2.4); Potassium 3.1 mEq/L (3.5-5.1)
[2024-07-12 07:25] LABS: Phosphorus 2.6 mg/dL (2.5-4.9)
--- NOTE | 2024-07-12 09:07 | RAD REPORT ---
EXAM DESCRIPTION: US - UPPER EXTREMITY VENOUS UNILATE - 07/12/2024 8:51 am CLINICAL HISTORY: Right upper extremity pain COMPARISON: None. FINDINGS: The right internal jugular, subclavian, brachial, axillary, cephalic, basilic, radial and ulnar veins demonstrate phasic signal. The veins are generally compressible. Doppler demonstrates good flow Grayscale, color and spectral analysis performed on all vessels IMPRESSION: No evidence of thrombus involving the right upper extremity
[2024-07-12] MEDS: AMIODARONE HCL 200 MG TAB PO SCH (09:09)
[2024-07-12] MEDS: CLOPIDOGREL 75 MG TABLET PO SCH (09:09)
[2024-07-12] MEDS: POTASSIUM CL SA 10 MEQ TAB PO ONE (09:10)
[2024-07-12] MEDS ORDERED: AMIODARONE HCL 200 MG TAB PO SCH (10:00)
[2024-07-12] MEDS: predniSONE 20 MG TAB PO SCH (11:34)
--- NOTE | 2024-07-12 13:06 | P.PN ---
Subjective Date of Service: 07/12/24 Chief Complaint: Shortness of breath Subjective: No new changes, No C/O voiced, Tolerating diet, Ambulating, Improving Review of Systems 10-point ROS is otherwise unremarkable Physical Examination - Vital Signs Temperature: 97.2 F Blood Pressure: 106/51 Pulse: 93 Respirations: 16 Pulse Ox (%): 96 - Physical Exam General: Alert, In no apparent distress HEENT: Atraumatic, PERRLA, EOMI Neck: Supple, JVD not distended Respiratory: Clear to auscultation bilaterally, Normal air movement Cardiovascular: Regular rate/rhythm, Normal S1 S2 Gastrointestinal: Normal bowel sounds, No tenderness Musculoskeletal: No tenderness Integumentary: No rashes Neurological: Normal speech, Normal tone, Normal affect Lymphatics: No axilla or inguinal lymphadenopathy - Studies Microbiology Data (last 24 hrs): 07/07/24 02:05 Blood - Blood Aerobic Blood Culture - Final No growth in 5 days. 07/07/24 02:05 Blood - Blood Anaerobic Blood Culture - Final No growth in 5 days. 07/07/24 01:45 Blood - Blood Aerobic Blood Culture - Final No growth in 5 days. 07/07/24 01:45 Blood - Blood Anaerobic Blood Culture - Final No growth in 5 days. Medications List Reviewed: Yes Assessment And Plan - Current Problems (Diagnosis) (1) NSTEMI (non-ST elevated myocardial infarction) Current Visit: Yes Status: Acute Plan: Coronary angiogram done that shown significant proximal LAD disease s/p PCI with Synergy 3.0x24 mm KYLEIGH ASA 81 mg daily for 4 weeks. switched Brilinta to Plavix as patient will need to be in [facility] for new onset AF Lipitor 40 mg daily (2) Acute on chronic diastolic heart failure Current Visit: Yes Status: Acute Plan: Continue Lasix 40 mg IV TID while she is here at the hospital then switch to lasix 40 mg po daily on discharge. continue lopressor 12.5 mg po BID Continue Losartan 25 mg daily (3) Pneumonia Current Visit: Yes Status: Acute Plan: ABX per primary team (4) H/O heart valve replacement with bioprosthetic valve Current Visit: Yes Status: Acute Plan: Echo shows normal functioning valve. (5) Atrial fibrillation with RVR Current Visit: Yes Status: Acute Plan: new onset while in the hospital, responded well to amiodarone bolus and drip continue Amiodarone 200 mg po BID Eliquis 2.5 mg po BID Physician Review: Patient Assessed, Agree with Above Assessment and Plan
--- NOTE | 2024-07-12 13:32 | EKG ---
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
--- NOTE | 2024-07-12 16:10 | P.PN ---
Date of Service: 07/12/24 Subjective Date of Service: 07/08/24 Chief Complaint: Shortness of breath Wean amnio drip to p.o. amnio Pending authorization correction for discharge Review of Systems 10 point ROS Unremarkable unless listed in HPI Physical Examination - Vital Signs reviewed - Physical Exam General: Alert, In no apparent distress, Oriented x3 HEENT: Atraumatic, Normocephalic, PERRLA Neck: Supple, 2+ carotid pulse no bruit, JVD not distended Respiratory: Clear to auscultation bilaterally, Normal air movement Cardiovascular: No edema, Normal pulses, irrRegular rate/rhythm Capillary refill: <2 Seconds Gastrointestinal: Normal bowel sounds, Soft and benign, Non-distended Musculoskeletal: No clubbing, No swelling, No contractures Integumentary: No rashes, No breakdown, No significant lesion Neurological: Normal gait, Normal speech, Normal strength at 5/5 x4 extr Lymphatics: No axilla or inguinal lymphadenopathy Assessment And Plan - Plan 07/11 New onset A-fib RVR heart rate in the 130s to 140s improved Started on amiodarone drip-discontinued weaned to p.o. amiodarone Cardiology notified Telemetry 07-11Plavix X300 times1, then 75 daily-07/12-DC Brilinta 07/12 Start amiodarone 200 p.o. twice daily- Continue Eliquis 5 p.o. twice daily Aspirin x 1 month then DC Stemi improved NSTEMI: chests pain has resolved. Continue heparin drip. [place] s [id number] <- [id number] <- 1787. Cardiology is following. Waiting for pt and her family members to give consent for cardiac cath. 07/08 PCI on brilinta Per cardiolgoy ASA 81 mg daily for life. Brilinta 90 mg po BID for 12 months Lipitor 40 mg daily continue lopressor 25 mg po BID (lowered to 12.5 po bid) soft BP Continue Losartan 25 mg daily UTI improved P.o. Macrobid Send urine culture Acute hypoxic respiratory failure due to to asthma exacerbation versus decompensated heart failure improving Acute asthma exacerbation: Improved Will continue oxygen, prn albuterol and steroid. Weaned to room air Possible Pneumonia: Will continue cefepime and f/u blood cx. Solu-Medrol, wean Acute diastolic CHF exacerbation: Improved Will continue lasix 40mg iv TID, strict I/O and daily. BNP is 1762. Change Lasix to twice daily hypoKalemia improved Trend electrolytes replace as needed Hypertension: Will continue home med. Hyperglycemia: Pt denies any prior history of DM. Will continue accuchek, SSI and ADA diet. Obtain hemoglobin A1c DVT prophylaxis, heparin n.p.o. after cardiac Dispo: Pending hospital course. ICU time with patient 55 minutes <Ila Traore - Last Filed: 07/12/24 16:08> Chart has been reviewed. Events of the last 24 hours have been noted. Case discussed with [facility]. I performed a substantial part of the MDM during this patient's care today. I personally made or approved the documented management plan and acknowledge its risk of complications. I agree with the findings and documentation provided in the [facility]'s notes <Zach Gutierres - Last Filed: 08/01/24 02:42>
--- NOTE | 2024-07-13 06:46 | P.PN ---
Date of Service: 07/13/24 Subjective Date of Service: 07/08/24 Chief Complaint: Shortness of breath No acute distress noted, family at bedside Pending snf facility authorization Review of Systems 10 point ROS Unremarkable unless listed in HPI Physical Examination - Vital Signs reviewed - Physical Exam General: Alert, In no apparent distress, Oriented x3 HEENT: Atraumatic, Normocephalic, PERRLA Neck: Supple, 2+ carotid pulse no bruit, JVD not distended Respiratory: Clear to auscultation bilaterally, Normal air movement Cardiovascular: No edema, Normal pulses, irrRegular rate/rhythm Capillary refill: <2 Seconds Gastrointestinal: Normal bowel sounds, Soft and benign, nontender Musculoskeletal: No clubbing, No swelling, No contractures Integumentary: No rashes, No breakdown, No significant lesion Neurological: Normal gait, Normal speech, Normal strength at 5/5 x4 extr clear yellow urine Assessment And Plan - Plan 07/11 New onset A-fib RVR heart rate in the 130s to 140s improved Started on amiodarone drip-discontinued weaned to p.o. amiodarone Cardiology notified Telemetry 07-11Plavix X300 times1, then 75 daily-07/12-DC Brilinta 07/12 Start amiodarone 200 p.o. twice daily- Continue Eliquis 5 p.o. twice daily Aspirin x 1 month then DC Stemi improved NSTEMI: chests pain has resolved. Continue heparin drip. Troponin trend s [id number] <- [id number] <- 1787. Cardiology is following. Waiting for pt and her family members to give consent for cardiac cath. 07/08 PCI on brilinta changed to Plavix Per cardiolgoy ASA 81 mg daily for 1 month for Brilinta 90 mg po BID for 12 months-discontinued Lipitor 40 mg daily continue lopressor 25 mg po BID (lowered to 12.5 po bid) soft BP Continue Losartan 25 mg daily UTI improved Urinary retention acute P.o. Macrobid Send urine culture Bladder scan as needed urinary retention, postvoid, straight cath for urinary tension greater than 4 Acute hypoxic respiratory failure due to to asthma exacerbation versus decompensated heart failure improving Acute asthma exacerbation: Improved Will continue oxygen, prn albuterol and steroid. Weaned to room air Possible Pneumonia: Will continue cefepime and f/u blood cx. Solu-Medrol, wean Acute diastolic CHF exacerbation: Improved Will continue lasix 40mg iv TID, strict I/O and daily. BNP is 1762. Change Lasix to twice daily hypoKalemia improved Trend electrolytes replace as needed Hypertension: Will continue home med. Hyperglycemia: Pt denies any prior history of DM. Will continue accuchek, SSI and ADA diet. Obtain hemoglobin A1c DVT prophylaxis, heparin n.p.o. after cardiac Dispo: Pending hospital course. ICU time with patient 25 minutes <Ila Traore - Last Filed: 07/13/24 14:58> Chart has been reviewed. Events of the last 24 hours have been noted. Case discussed with [facility]. I performed a substantial part of the MDM during this patient's care today. I personally made or approved the documented management plan and acknowledge its risk of complications. I agree with the findings and documentation provided in the [facility]'s notes <Zach Gutierrse - Last Filed: 08/01/24 02:41>
[2024-07-13] MEDS: INSULIN REGULAR (HUMAN) 100 UNIT/ML SQ SCH (07:30)
[2024-07-13 07:43] LABS: Absolute Eosinophils 0.2 K/uL (0-0.5); Absolute Lymphocytes (CBC) 0.8 K/uL (0.7-4.9); Absolute Monocytes 1.8 K/uL (0.1-1.3); Absolute Neutrophil 10.2 K/uL (1.8-8.0); Basophils % 0.2 % (0-1.3); Eosinophils % 1.6 % (0-4.4); Hematocrit 26.1 % (36.0-45.0); Hemoglobin 8.5 g/dL (12.0-15.0); Lymphocytes % 5.9 % (15.3-44.8); MCH 29.5 pg (27.0-35.0); MCHC 32.4 g/dL (32.0-36.0); MCV 90.9 fL (80-100); MPV 11.8 fL (7.6-11.3); Monocytes % 13.8 % (3.3-12.3); Neutrophils % 78.5 % (41.7-73.7); Platelets 201 thou/uL (152-406); RBC Red Blood Cell Count 2.88 M/uL (3.86-4.86); Red Cell Distribution Width 16.9 % (12.1-15.2)
[2024-07-13 08:00] LABS: Albumin 2.8 g/dL (3.4-5.0); Anion Gap 5.9 mEq/L (5.0-15.0); Magnesium 2.2 mg/dL (1.6-2.4); Phosphorus 3.3 mg/dL (2.5-4.9); Potassium 2.9 mEq/L (3.5-5.1)
[2024-07-13 08:21] LABS: Platelet Estimate ADEQ; White Blood Cell Scan OK (OK)
[2024-07-13 08:22] LABS: Blood Morphology Comment NOT SEEN (NOT SEEN)
[2024-07-13] MEDS ORDERED: POTASSIUM CL 40 MEQ in NA CHLORIDE 0.9% 500 ML IV SCH (15:00)
[2024-07-13] MEDS: HYDROCORTISONE SUC 100 MG INJ IV ONE (15:36)
[2024-07-13] MEDS: POTASSIUM CL SA 10 MEQ TAB PO SCH (15:59)
[2024-07-13] MEDS: SPIRONOLACTONE 25 MG TABLET PO SCH (21:01)
[2024-07-13] MEDS ORDERED: POTASSIUM PHOS 30 MM in NA CHLORIDE 0.9% 500 ML IV ONE (22:00)
[2024-07-14 07:04] LABS: Absolute Basophils 0.1 K/uL (0-0.5); Absolute Eosinophils 0.3 K/uL (0-0.5); Absolute Lymphocytes (CBC) 0.8 K/uL (0.7-4.9); Absolute Monocytes 1.8 K/uL (0.1-1.3); Absolute Neutrophil 12.4 K/uL (1.8-8.0); Basophils % 0.4 % (0-1.3); Eosinophils % 1.9 % (0-4.4); Hemoglobin 8.2 g/dL (12.0-15.0); Lymphocytes % 5.5 % (15.3-44.8); MCH 29.5 pg (27.0-35.0); MCHC 32.8 g/dL (32.0-36.0); MCV 90.1 fL (80-100); MPV 11.3 fL (7.6-11.3); Monocytes % 11.7 % (3.3-12.3); Neutrophils % 80.5 % (41.7-73.7); Nucleated Red Blood Cells % 0.1 % (0-0); Platelets 217 thou/uL (152-406); RBC Red Blood Cell Count 2.77 M/uL (3.86-4.86); Red Cell Distribution Width 16.8 % (12.1-15.2)
[2024-07-14 07:21] LABS: Albumin 2.6 g/dL (3.4-5.0); Anion Gap 6.9 mEq/L (5.0-15.0); Magnesium 2.1 mg/dL (1.6-2.4); Phosphorus 2.9 mg/dL (2.5-4.9); Potassium 3.9 mEq/L (3.5-5.1)
--- NOTE | 2024-07-14 07:55 | P.PN ---
Date of Service: 07/14/24 Subjective Date of Service: 07/08/24 Chief Complaint: Shortness of breath No acute distress noted, family at bedside Pending alf facility authorization Review of Systems 10 point ROS Unremarkable unless listed in HPI Physical Examination - Vital Signs reviewed - Physical Exam General: Alert, In no apparent distress, Oriented x3 HEENT: Atraumatic, Normocephalic, PERRLA Neck: Supple, 2+ carotid pulse no bruit, JVD not distended Respiratory: Clear to auscultation bilaterally, Normal air movement Cardiovascular: No edema, Normal pulses, irrRegular rate/rhythm Capillary refill: <2 Seconds Gastrointestinal: Normal bowel sounds, Soft and benign, nontender Musculoskeletal: No clubbing, No swelling, No contractures Integumentary: No rashes, No breakdown, No significant lesion Neurological: Normal gait, Normal speech, Normal strength at 5/5 x4 extr clear yellow urine Assessment And Plan - Plan 07/11 New onset A-fib RVR heart rate in the 130s to 140s improved Started on amiodarone drip-discontinued weaned to p.o. amiodarone Cardiology notified Telemetry 07-11Plavix X300 times1, then 75 daily-07/12-DC Brilinta 07/12 Start amiodarone 200 p.o. twice daily- Continue Eliquis 5 p.o. twice daily Aspirin x 1 month then DC Stemi improved NSTEMI: chests pain has resolved. Continue heparin drip. [place] [address] <- [id number] <- 1787. Cardiology is following. Waiting for pt and her family members to give consent for cardiac cath. 07/08 PCI on brilinta changed to Plavix Per cardiolgoy ASA 81 mg daily for 1 month for Brilinta 90 mg po BID for 12 months-discontinued Lipitor 40 mg daily continue lopressor 25 mg po BID (lowered to 12.5 po bid) soft BP Continue Losartan 25 mg daily UTI improved Urinary retention acute P.o. Macrobid Send urine culture Bladder scan as needed urinary retention, postvoid, straight cath for urinary tension greater than 4 Acute hypoxic respiratory failure due to to asthma exacerbation versus decompensated heart failure improving Acute asthma exacerbation: Improved Will continue oxygen, prn albuterol and steroid. Weaned to room air Possible Pneumonia: Will continue cefepime and f/u blood cx. Solu-Medrol, wean Acute diastolic CHF exacerbation: Improved Will continue lasix 40mg iv TID, strict I/O and daily. BNP is 1762. Change Lasix to twice daily hypoKalemia improved Trend electrolytes replace as needed Hypertension: Will continue home med. Hyperglycemia: Pt denies any prior history of DM. Will continue accuchek, SSI and ADA diet. Obtain hemoglobin A1c DVT prophylaxis, Dispo: Pending hospital course. ICU time with patient 25 minutes
[2024-07-14] MEDS: FUROSEMIDE 40 MG TABLET PO SCH (08:33)
[2024-07-14] MEDS: POTASSIUM CL SA 10 MEQ TAB PO ONE (08:34)
[2024-07-14 10:12] VITALS: O2SAT 96
[2024-07-14 12:38] VITALS: BP 100/49; TEMP 98.2
== END 2024-07-14 13:06 | DRG 853 ==
LOC: ER 00:32 → 2ND 02:07
PROVIDERS: ADMIT Internal Medicine; ATTEND Hospitalist
PROC: 027034Z Dilation of Coronary Artery, One Artery with Drug-eluting Intraluminal Device, Percutaneous Approach (ICD-10-PCS; principal; 2024-07-08)
PROC: 4A023N7 Measurement of Cardiac Sampling and Pressure, Left Heart, Percutaneous Approach (ICD-10-PCS; 2024-07-08)
PROC: B2111ZZ Fluoroscopy of Multiple Coronary Arteries using Low Osmolar Contrast (ICD-10-PCS; 2024-07-08)
DX: A41.9 Sepsis, unspecified organism (principal); I21.4 Non-ST elevation (NSTEMI) myocardial infarction; I50.33 Acute on chronic diastolic (congestive) heart failure; J18.9 Pneumonia, unspecified organism; J96.01 Acute respiratory failure with hypoxia; J45.901 Unspecified asthma with (acute) exacerbation; E87.1 Hypo-osmolality and hyponatremia; N39.0 Urinary tract infection, site not specified; I11.0 Hypertensive heart disease with heart failure; I48.91 Unspecified atrial fibrillation; E87.6 Hypokalemia; R73.9 Hyperglycemia, unspecified; R33.9 Retention of urine, unspecified; Z66 Do not resuscitate; Z88.5 Allergy status to narcotic agent; Z95.2 Presence of prosthetic heart valve; Z88.8 Allergy status to other drugs, medicaments and biological substances; Z79.82 Long term (current) use of aspirin; Z11.52 Encounter for screening for COVID-19; Z79.52 Long term (current) use of systemic steroids; Z90.49 Acquired absence of other specified parts of digestive tract; Z79.899 Other long term (current) drug therapy; Z90.710 Acquired absence of both cervix and uterus
CPT/HCPCS: 36415; 71045; 74230; 76937; 80048; 80053; 80069; 81001; 82550; 82947; 83036; 83605; 83735; 83880; 84100; 84443; 84484; 85025; 85347; 85730; 87040; 87804; 87811; 92610; 92611; 93005; 93306; 93454; 93971; 94640; 94760; 96374; 96375; 97116; 97161; 97530; 99152; 99153; 99285; C1725; C1893; C9600; J0282; J0461; J0692; J0696; J1200; J1644; J1650; J1720; J1940; J2001; J2250; J2270; J2919; J3010; J3475; J3480; J7040; J7050; J7060; J7512; J7613; J7644; Q9967